=== PATIENT | female | born 1935 | race Caucasian/White ===

== ENCOUNTER 2020-12-27 19:20 | Emergency (ER) | payer MEDICARE, OTHER ==
[~2020-12-27] VITALS: Ht 160 cm; Wt 75.0 kg
[~2020-12-27 19:20] MED LIST: ALLP100T; AMLO5TAB2; ATEN1TAB3; ATRV10T; CAND1TAB4; CPR500T PO; FEXO180T; FLC150T PO; MNTL10T; PREMARIN
[2020-12-27] MEDS ORDERED: ROCURONIUM 10 MG/ML 5 ML SYRINGE IV ONE (19:25)
[2020-12-27] MEDS ORDERED: SUCCINYLCHOLINE INJ 100 MG/5 ML SYR/VIAL INJ ONE (19:25)
[2020-12-27] MEDS ORDERED: MIDAZOLAM 5 MG/5 ML (VERSED) VIAL IJ ONE (19:25)
[2020-12-27] MEDS ORDERED: LORazepam INJ 2 MG/ML (ATIVAN) VIAL ONE (19:31)
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
--- NOTE | 2020-12-27 19:58 | Diagnostic Imaging Report ---
PROCEDURE: CT head wo r/o stroke. TECHNIQUE: Multiple contiguous axial images were obtained through the brain without the use of intravenous contrast. Auto Exposure Controls were utilized during the CT exam to meet ALARA standards for radiation dose reduction. INDICATION: Neurodeficit trauma COMPARISON: None. FINDINGS: The ventricles are normal in size, shape and position. There is no midline shift or mass effect. There is no hemorrhage or evidence of acute ischemia. No extra-axial fluid collection or mass is seen. There was no dense vessel sign. There is no skull fracture. Paranasal sinuses and mastoids are clear. IMPRESSION: 1. Negative CT head. No acute intracranial abnormality. 2. No skull fracture. Dictated by: Dictated on workstation # [id number]
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
--- NOTE | 2020-12-27 20:05 | Diagnostic Imaging Report ---
PROCEDURE: CT thoracic and lumbar spine without contrast. TECHNIQUE: Multiple contiguous axial images were obtained through the thoracic and lumbar spine without the use of intravenous contrast. Sagittal and coronal reformations were then performed. All CT scans use one or more of the following dose optimizing techniques: automated exposure control, MA and/or KvP adjustment based on a patient size and exam type, or iterative reconstruction. INDICATION: Low back pain COMPARISON: None. FINDINGS: Please note, the examination is limited due to motion. No obvious traumatic malalignment or fracture is identified. There is advanced atherosclerotic disease of the abdominal aorta. No obvious aneurysm is identified. There are advanced degenerative changes throughout the thoracolumbar spine. Diffuse osteopenia is seen. The visualized SI joints are symmetric. IMPRESSION: No traumatic malalignment or fracture. Dictated by: Dictated on workstation # [id number]
--- NOTE | 2020-12-27 20:18 | Diagnostic Imaging Report ---
PROCEDURE: CT chest, abdomen, and pelvis with contrast. TECHNIQUE: Multiple contiguous axial images were obtained through the chest, abdomen, and pelvis after the administration of intravenous contrast. Auto Exposure Controls were utilized during the CT exam to meet ALARA standards for radiation dose reduction. INDICATION: Trauma COMPARISON: None. CT CHEST: There has been prior ascending aortic repair. There is no vascular injury. The heart is enlarged with coronary artery disease. There is no pneumothorax, effusion or pulmonary contusion. The visualized chest, ribs and sternum are unremarkable. IMPRESSION: No acute trauma identified. CT ABDOMEN PELVIS: Solid organs, vascular structures and bowel are unremarkable. There is a small hiatal hernia. There is no free air or free fluid. Advanced atherosclerotic disease is seen in the abdominal aorta and visceral branch vessels. No solid organ or bowel ischemia is seen. The lumbar spine, pelvis and hips are grossly intact. There is no hematoma. IMPRESSION: 1. No acute trauma within the abdomen or pelvis. 2. Small hiatal hernia. 3. Atherosclerosis of the abdominal aorta and visceral branch vessels. No solid organ or bowel ischemia identified. 4. Not mentioned above, diverticulosis of the sigmoid colon without diverticulitis. Dictated by: Dictated on workstation # [id number]
[2020-12-27 20:30] LABS: BASOPHILS % (AUTO) 1 % (0-10); EOSINOPHILS # (AUTO) 0.2 10^3/uL (0.0-0.3); EOSINOPHILS % (AUTO) 2 % (0-10); HEMATOCRIT 33 % (35-52); HEMOGLOBIN 10.9 g/dL (11.5-16.0); LYMPHOCYTES # (AUTO) 1.4 10^3/uL (1.0-4.0); LYMPHOCYTES % (AUTO) 16 % (12-44); MEAN CORPUSCULAR HEMOGLOBIN 29 pg (25-34); MEAN CORPUSCULAR HGB CONC 33 g/dL (32-36); MEAN CORPUSCULAR VOLUME 89 fL (80-99); MEAN PLATELET VOLUME 9.8 fL (9.0-12.2); MONOCYTES # (AUTO) 0.7 10^3/uL (0.0-1.0); MONOCYTES % (AUTO) 8 % (0-12); NEUTROPHILS # (AUTO) 6.4 10^3/uL (1.8-7.8); NEUTROPHILS % (AUTO) 73 % (42-75); PLATELET COUNT 235 10^3/uL (130-400); WHITE BLOOD COUNT 8.8 10^3/uL (4.3-11.0)
[2020-12-27] MEDS ORDERED: KETAMINE HCL 100 MG/ML 5 ML VIAL IV ONE (20:30)
[2020-12-27] MEDS ORDERED: NS IV 1000 ML 1,000 ML IV SCH (20:30)
[2020-12-27 20:39] LABS: FIBRIN DEGRADATION PRODUCTS 1.22 UG/ML (0.00-0.49); PROTHROMBIN TIME PATIENT 13.3 SEC (12.2-14.7)
[2020-12-27 20:43] LABS: CHLORIDE 101 MMOL/L (98-107); POTASSIUM 4.4 MMOL/L (3.6-5.0); SODIUM 138 MMOL/L (135-145)
[2020-12-27 20:44] LABS: ALBUMIN 3.3 GM/DL (3.2-4.5)
[2020-12-27 20:45] LABS: AMYLASE 36 U/L (25-125); CALCIUM 8.4 MG/DL (8.5-10.1)
[2020-12-27 20:46] LABS: GLUCOSE 125 MG/DL (70-105); TOTAL PROTEIN 5.5 GM/DL (6.4-8.2)
[2020-12-27 20:47] LABS: CARBON DIOXIDE 27 MMOL/L (21-32)
[2020-12-27 20:48] LABS: BILIRUBIN,TOTAL 0.4 MG/DL (0.1-1.0)
[2020-12-27 20:50] LABS: ALKALINE PHOSPHATASE 70 U/L (40-136); CREATININE SERUM 1.55 MG/DL (0.60-1.30); GFR ESTIMATED 32
[2020-12-27 20:51] LABS: ACETAMINOPHEN < 10 UG/ML (10-30); BUN/CREATININE RATIO 25
[2020-12-27 20:53] LABS: ALANINE AMINOTRANSFERASE 16 U/L (0-55); MAGNESIUM 1.6 MG/DL (1.6-2.4)
[2020-12-27 20:54] LABS: CREATINE KINASE 40 U/L (29-168); LIPASE 22 U/L (8-78)
[2020-12-27 20:57] LABS: BILIRUBIN,URINE NEGATIVE (NEGATIVE); CLARITY,URINE CLEAR; COLOR,URINE YELLOW; GLUCOSE, URINE (UA) NEGATIVE (NEGATIVE); KETONES,URINE NEGATIVE (NEGATIVE); LEUKOCYTE ESTERASE ,URINE NEGATIVE (NEGATIVE); NITRITE,URINE NEGATIVE (NEGATIVE); PH,URINE 5.5 (5-9); PROTEIN,URINE NEGATIVE (NEGATIVE)
[2020-12-27 21:01] LABS: CREATINE KINASE MB 1.2 NG/ML (<6.6)
[2020-12-27 21:12] LABS: ERYTHROCYTE SEDIMENTATION RATE 7 MM/HR (0-30)
[2020-12-27] MEDS ORDERED: PROPOFOL DRIP (ICU) 100 ML IV ONE (21:14)
[2020-12-27] MEDS ORDERED: PROPOFOL DRIP (ICU) 100 ML IV SCH (21:15)
[2020-12-27 21:18] LABS: AMORPHOUS SEDIMENT,UR FEW AMOR URATES /LPF; BACTERIA,URINE NEGATIVE /HPF; RBC,URINE RARE /HPF
[2020-12-27 21:26] LABS: AMPHETAMINE SCREEN, URINE NEGATIVE (NEGATIVE); BARBITURATE SCREEN URINE NEGATIVE (NEGATIVE); BENZODIAZEPINES SCREEN URINE NEGATIVE (NEGATIVE); CANNABINOID SCREEN, URINE NEGATIVE (NEGATIVE); COCAINE SCREEN URINE NEGATIVE (NEGATIVE); METHADONE STAT NEGATIVE (NEGATIVE); METHAMPHETAMINE SCREEN URINE S NEGATIVE (NEGATIVE); OPIATE SCREEN URINE NEGATIVE (NEGATIVE); OXYCODONE STAT NEGATIVE (NEGATIVE); PROPOXYPHENE STAT NEGATIVE (NEGATIVE); TRICYCLIC ANTIDEPRESSANTS SCRE NEGATIVE (NEGATIVE)
--- NOTE | 2020-12-27 21:35 | Diagnostic Imaging Report ---
INDICATION: Trauma COMPARISON: None. FINDINGS: Single view of the pelvis demonstrates no fracture or dislocation. Articular surfaces are age-appropriate. No osseous lesion. IMPRESSION: No fracture identified. Dictated by: Dictated on workstation # [id number]
--- NOTE | 2020-12-27 21:36 | Diagnostic Imaging Report ---
INDICATION: Intubated COMPARISON: None. FINDINGS: Single view of the chest demonstrates ET tube in the distal trachea. There is an NG tube in the stomach. Heart is prominent with central vascular congestion. There is no pneumothorax. Osseous structures stable. IMPRESSION: 1. Well-positioned NG and ET tubes. 2. Cardiac enlargement with central vascular congestion. Dictated by: Dictated on workstation # [id number]
[2020-12-27 22:02] LABS: TSH (THYROID ANALYZER) 1.38 UIU/ML (0.35-4.94)
[2020-12-27 23:23] VITALS: BP 178/75
== END 2020-12-27 22:15 | disposition short-term general hospital (02) ==
LOC: EDUNIT# 19:21 → ER 19:24
DX: G51.0 Bell's palsy (principal); Z20.822 Contact with and (suspected) exposure to COVID-19
CPT/HCPCS: 31500; 51702; 70450; 71045; 71260; 72125; 72128; 72131; 72170; 74177; 80053; 80306; 81000; 82150; 82550; 82553; 83615; 83690; 83735; 83874; 83880; 84145; 84443; 84484; 85025; 85379; 85610; 85652; 85730; 86141; 86850; 86900; 86901; 87636; 93005; 93041; 94002; 94799; 96361; 96374; 96375; 99291; 99292; G0390; G0480 ×2; 36415; 80320; 80329

== ENCOUNTER 2021-01-05 08:55 | Inpatient (IN) | payer MEDICARE, OTHER ==
[~2021-01-05] VITALS: Ht 157.5 cm; Wt 64.9 kg
[2021-01-05] MEDS ORDERED: ALLO100T PO (10:20)
[2021-01-05] MEDS ORDERED: FLUO5DRO OU (10:20)
[2021-01-05] MEDS ORDERED: AMLO-250 PO (10:20)
[2021-01-05] MEDS ORDERED: CETI10TA17 PO (10:20)
[2021-01-05] MEDS ORDERED: ASPI-1238 PO (10:20)
[2021-01-05] MEDS ORDERED: CAND1TAB16 PO (10:20)
[2021-01-05] MEDS ORDERED: MELA5TAB14 PO (10:20)
[2021-01-05] MEDS ORDERED: ATOR40TA70 PO (10:20)
[2021-01-05] MEDS ORDERED: MONT10TA32 PO (10:20)
[2021-01-05] MEDS ORDERED: TRAM1TAB7 PO (10:20)
[2021-01-05] MEDS ORDERED: CLOP75TA28 PO (10:20)
[2021-01-05] MEDS ORDERED: ATEN50TA PO (10:26)
[2021-01-05] MEDS ORDERED: FLEET ENEMA ADULT 1 EA BTL PR PRN (13:00)
[2021-01-05] MEDS ORDERED: ALPRAZolam 0.25 MG (XANAX) TAB PO PRN (13:00)
[2021-01-05] MEDS ORDERED: ONDANSETRON 4 MG (ZOFRAN) ORAL DISSOLVE TAB PO PRN (13:00)
[2021-01-05] MEDS ORDERED: MELATONIN 3 MG TABLET PO PRN (13:00)
[2021-01-05] MEDS ORDERED: BISACODYL 10 MG SUPP (DULCOLAX) PR PRN (13:00)
[2021-01-05] MEDS ORDERED: CALCIUM CARBONATE 500 MG (TUMS) TAB.CHEW PO PRN (13:00)
[2021-01-05] MEDS ORDERED: NALOXONE 0.4 MG/ML 1 ML (NARCAN) VIAL IV PRN (13:00)
[2021-01-05] MEDS ORDERED: diphenhydrAMINE 25 MG TAB (BENADRYL) PO PRN (13:00)
[2021-01-05] MEDS ORDERED: guaiFENesin/CODEINE (ROBITUSSIN AC) 10ML UDC PO PRN (13:00)
[2021-01-05] MEDS ORDERED: LOPERAMIDE 2 MG (IMODIUM) TABLET PO PRN (13:00)
[2021-01-05] MEDS ORDERED: LACTULOSE SYRUP 10GM/15ML (ENULOSE) 30ML UDC PO PRN (13:00)
[2021-01-05] MEDS ORDERED: DOCUSATE SODIUM 100 MG (COLACE) CAP PO PRN (13:00)
[2021-01-05] MEDS ORDERED: MELATONIN 10 MG TABLET PO PRN (13:45)
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
--- NOTE | 2021-01-05 14:46 | ST Cognitive Linguistic Eval ---
Speech Evaluation-General Medical Diagnosis CVA Onset Date: Jan 05, 2021 Therapy Diagnosis Therapy Diagnosis: Cognitive-communication Referral Referring Physician: Dr. Lucas Medical History Reviewed History: Yes Social History Current Living Status: Alone Speech PLF-Current Status Prior Level of Function Patient lives home alone, however she has many family members availabe for support. Subjective Patient was pleasant and cooperative with the cognitive assessment. Language Eval: Auditory Comprehends Simple Yes/No Ques: Functional Indent/Objects Multiple Galvez: Functional Ident/Pics in Multiple Galvez: Functional Follows 1-Step Commands: Functional Follows Complex Directions: Functional Follows General Conversations: Functional Language Eval: Verbal Language Completes Spontaneous Greeting: Functional Produces Auto, Serial Info: Functional Imitates Simple Words/Phrases: Functional Word Finding: Mild Requests Basic Needs: Functional States Basic Personal Info: Functional Expresses Complex Ideas: Mild Objective Cognitive Domain Attention: Mild Memory: Mild Problem Solving: Mild Executive Functions: Mild Visuospatial Skills: Mild Composite Severity Rating: Mild Clock Drawing Severity Rating: Mild Objective Formal/Standardized Tests [facility] Status ([facility]) Results 24/, Mild Neurocognitive Disorder Oral Motor/Speech Production Within Normal Limits Impression Patient is a pleasant 85 y/o female who was admitted to the ARU s/p CVA. The patient was given the UMS at bedside with a score of 24/30 obtained. Patient's score is within the [place] range of function. The patient exhibits deficits in cognitive function which indicate a need for further ST services. Focus on therapy will be safety awareness and improved memory. Speech Patient Assess Expression of Ideas/Wants: Exhibits (3) Understanding Verbal Content: Usually Understands (3) Brief Interview-Mental Status: Yes Repetition of Three Words: Three (3) Temporal Orientation: Year: Correct (3) Temporal Orientation: Month: Accurate within 5 days(2) Temporal Orientation: Day: Correct (1) Recall : Wear to say "Sock": Yes,after cueing (1) Recall : Color: Yes, after cueing (1) Recall : Bed: Yes, no cue required (2) Memory/Recall Ability: Current season, That he or she is in a hsp/hsp unit Speech Short Term Goals Short Term Goals Short Term Goals 1) The patient will complete safety awareness tasks related to her daily needs at 80% or greater with minimal cues. 2) The patient will complete memory tasks related to her daily needs at 80% or greater with minimal cues. 3) The patient will complete problem solving tasks related to her daily needs at 80% or greater with minimal cues. Speech Proof Technician Goals Proof Technician Goals Patient will improve cognitive communication abilities in order to return home safely with decreased assistance. Speech-Plan Patient/Family Goals Patient/Family Goals: Patient plans on returning to her home where she lives alone. Treatment Plan Speech Therapy Treatment Plan: Continue Plan of Care Treatment Duration: Jan 19, 2021 Frequency: 4 times per week (Patient will receive skilled ST 4-5x per week) Estimated Hrs Per Day: .5 hour per day Rehab Potential: Fair Barriers to Learning: Patient's recent CVA, age Pt/Family Agrees to Plan: Yes Safety Risks/Education Teaching Recipient: Patient Teaching Methods: Demonstration, Discussion Response to Teaching: Verbalize Understanding, Return Demonstration Education Topics Provided: Safety within her room, communication wants/needs Time Speech Therapy Time In: 14:15 Speech Therapy Time Out: 14:45 Total Billed Time: 30 Billed Treatment Time 1, MATTI TORRES [address] ST Jan 05, 2021 14:46
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
[2021-01-05] MEDS ORDERED: DICLOFENAC 1% GEL 100 GM (VOLTAREN) TUBE TOP SCH (17:00)
[2021-01-05] MEDS: ACETAMINOPHEN 325 MG TABLET PO PRN (17:32)
[2021-01-05] MEDS: DICLOFENAC 1% GEL 100 GM (VOLTAREN) TUBE TOP PRN (17:35)
[2021-01-05] MEDS ORDERED: ACETAMINOPHEN 500 MG TAB (TYLENOL) PO SCH (18:00)
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
[2021-01-05 20:02] VITALS: BP 136/65
[2021-01-05] MEDS: polyethylene glycoL POWDER 17 GM (MIRALAX) PACK PO SCH (20:45)
[2021-01-05] MEDS: MONTELUKAST 10 MG (SINGULAIR) TAB PO SCH (20:46)
[2021-01-05] MEDS: SENNA W/DOCUSATE (SENOKOT S) TABLET PO SCH (20:46)
[2021-01-05] MEDS: ATENOLOL 50 MG (TENORMIN) TAB PO SCH (20:46)
[2021-01-05] MEDS: amLODIPine 5 MG (NORVASC) TAB PO SCH (20:47)
[2021-01-06 05:46] LABS: BASOPHILS % (AUTO) 1 % (0-10); EOSINOPHILS # (AUTO) 0.3 10^3/uL (0.0-0.3); EOSINOPHILS % (AUTO) 3 % (0-10); HEMATOCRIT 34 % (35-52); HEMOGLOBIN 11.4 g/dL (11.5-16.0); LYMPHOCYTES # (AUTO) 1.9 10^3/uL (1.0-4.0); LYMPHOCYTES % (AUTO) 22 % (12-44); MEAN CORPUSCULAR HEMOGLOBIN 28 pg (25-34); MEAN CORPUSCULAR HGB CONC 33 g/dL (32-36); MEAN CORPUSCULAR VOLUME 86 fL (80-99); MEAN PLATELET VOLUME 10.3 fL (9.0-12.2); MONOCYTES # (AUTO) 1.1 10^3/uL (0.0-1.0); MONOCYTES % (AUTO) 12 % (0-12); NEUTROPHILS # (AUTO) 5.5 10^3/uL (1.8-7.8); NEUTROPHILS % (AUTO) 62 % (42-75); PLATELET COUNT 286 10^3/uL (130-400); WHITE BLOOD COUNT 8.8 10^3/uL (4.3-11.0)
[2021-01-06 05:58] LABS: ALBUMIN 3.6 GM/DL (3.2-4.5)
--- NOTE | 2021-01-06 05:58 | PM&R Progress Note ---
Subjective HPI/CC On Admission Date Seen by Provider: Jan 06, 2021 Time Seen by Provider: 06:00 Subjective/Events-last exam 01/06/2021: Patient doing very well No major pain is reported Check meds and labs Patient slept on and off last night Had some confusion last night Converses a lot Review of Systems General: Fatigue, Malaise Neurological: Weakness, Incoordination, Confusion Objective Exam Vital Signs Vital Signs Date Time Temp Pulse Resp B/P (MAP) Pulse Ox O2 Delivery O2 Flow Rate FiO2 01/06/21 09:00 Room Air 01/06/21 08:52 36.6 68 20 106/68 (81) 98 Capillary Refill : General Appearance: No Apparent Distress, Anxious, Chronically ill HEENT: PERRL/EOMI, Normal ENT Inspection, Pharynx Normal, Other (left subconjunctival hemorrhage) Neck: Full Range of Motion, Normal Inspection, Non Tender, Supple Respiratory: Lungs Clear, No Accessory Muscle Use, No Respiratory Distress, Decreased Breath Sounds Cardiovascular: Regular Rate, Rhythm, Systolic Murmur, Gallop/S4 Gastrointestinal: Normal Bowel Sounds, No Organomegaly, No Pulsatile Mass, Non Tender, Soft Rectal: Deferred Back: No CVA Tenderness Extremity: Non Tender, No Calf Tenderness, Pedal Edema (1) Neurologic/Psychiatric: Alert, Oriented x3, Depressed Affect, Facial Droop (right), Other (slurred speech--mild) Skin: Warm/Dry, Ecchymosis (forearms) Results/Procedures Lab Laboratory Tests 01/06/21 05:34 Patient resulted labs reviewed. FIM Transfers Therapy Code Descriptions/Definitions Functional [place] Measure: 0=Not Assessed/NA 4=Minimal Assistance 1=Total Assistance 5=Supervision or Setup 2=Maximal Assistance 6=Modified [place] 3=Moderate Assistance 7=Complete IndependenceSCALE: Activities may be completed with or without assistive devices. 4-Heyletwutq-thmbgnb completes the activity by him/herself with no assistance from a helper. 5-Set-up or Clean-up Assistance-helper sets up or cleans up; patient completes activity. [place] assists only prior to or following the activity. 4-Supervision or Touching Assistance-helper provides verbal cues and/or touching/steadying and/or contact guard assistance as patient completes activity. Assistance may be provided throughout the activity or intermittently. 3-Partial/Moderate Assistance-helper does LESS THAN HALF the effort. [place] lifts, holds or supports trunk or limbs, but provides less than half the effort. 2-Substantial/Maximal Assistance-helper does MORE THAN HALF the effort. [place] lifts or holds trunk or limbs and provides more than half the effort. 4-Yotncbieu-uwjdcy does ALL the effort. Patient does none of the effort to complete the activity. Or, the assistance of 2 or more helpers is required for the patient to complete the activity. If activity was not attempted, code reason: 7-Patient Refused. 9-Not Applicable-not attempted and the patient did not perform the activity before the current illness, exacerbation or injury. 10-Not Attempted due to Environmental Limitations-(lack of equipment, weather restraints, etc.). 88-Not Attempted due to Medical Conditions or Safety Concerns. Roll Left to Right (QC): 6 Sit to Lying (QC): 6 Sit to Stand (QC): 3 Chair/Ysi-rk-Tsjhb Xfer(QC): 4 Car Transfer (QC): 3 Gait Training Does the Patient Walk?: Yes Walk 10 feet (QC): 4 Walk 50 ft with 2 Turns(QC): 4 Walk 150 ft (QC): 4 Walking 10ft/uneven surface-QC: 3 Gait Assistive Device: FWW Wheelchair Training Does the Pt Use a Wheelchair?: Yes Distance: 200' Wheel 50 ft with 2 turns (QC): 2 Wheel 150 ft (QC): 2 Stair Training #of Steps: 1 1 Step (curb) (QC): 3 4 Steps (QC): 88 12 Steps (QC): 88 Balance Picking up an Object (QC): 88 ADL-Treatment Eating (QC): 5 (set up assistance per clincial judgement) Oral Hygiene (QC): 4 (CGA standing at sink. 1 verbal cue to locate cup at sink) Shower/Bathe Self (QC): 4 (CGA in stand, min verbal cues for sequencing.) Upper Body Dressing (QC): 3 (Mod A with donning breast puller shirt, max verbal cues for orientation of shirt.) Lower Body Dressing (QC): 3 (Mod A with donning LE clothing, max verbal cues for orientation) On/Off Footwear (QC): 3 (Pt able to doff shoes, donned shoes on wrong feet requiring cue. Min A to don ) Toileting Hygiene (QC): 4 (CGA) Assessment/Plan Assessment and Plan Assess & Plan/Chief Complaint Assessment: CVA from right-sided MCA stroke with left-sided weakness Hypertension COPD Recent former smoker Hyperlipidemia Confusion/cognitive deficit Plan: Rehab protocol Monitor blood pressure Fall risk Assistive devices to increase independence 01/06/2021: Supportive care Confusion noted fall risk (1) CVA (cerebral vascular accident) MIGEL SANCHEZ DO Jan 06, 2021 05:58
--- NOTE | 2021-01-06 05:58 | Individualized Plan of Care ---
Individualized Plan of Care Rehab Nursing IPOC Order Admission Date Jan 05, 2021 at 12:50 Current Orders Orders Admission Arrival Bed Request (01/05/21 12:55) Admission Order(Inpt,Obs,Sdc) (01/05/21 12:52) Vital Signs: Per Unit Policy ( 08,16,00 (01/05/21 12:52) Aman Henley (01/05/21 12:52) Sequential Compression Device .admit (01/05/21 12:52) Security Strategist-Inpt Rehab Con (01/05/21 12:52) Rehab Nursing Orders-Ipoc (01/05/21 12:52) Physical Therapy Rehab Orders (01/05/21 12:52) Occupational Therapy Rehab Ord (01/05/21 12:52) Speech Therapy Rehab Orders (01/05/21 12:52) Cbc With Automated Diff (01/06/21 06:00) Comprehensive Metabolic Panel (01/06/21 06:00) Precautions (Aru) (01/05/21 12:52) Rehab-Intensity Of Therapy (01/05/21 12:52) Initiate Admission Nursing Pro .admission (01/05/21 12:52) Alprazolam Tablet (Xanax Tablet) (01/05/21 13:00) Calcium Carbonate Chew Tablet (Antacid C (01/05/21 13:00) Diphenhydramine Tablet (Benadryl Tablet) (01/05/21 13:00) Docusate Sodium Capsule (Colace Capsule) (01/05/21 13:00) Bisacodyl Suppository (Dulcolax Supposit (01/05/21 13:00) Lactulose Oral Solution (Enulose Oral So (01/05/21 13:00) Na Phos/Na Biphos Enema (Fleet Enema Antonio (01/05/21 13:00) Guaifenesin/Codeine Syrup (Robitussin Ac (01/05/21 13:00) Loperamide Tablet (Imodium Tablet) (01/05/21 13:00) Polyethylene Glycol Powder Pkt (Miralax (01/05/21 21:00) Ondansetron Oral Dissolve Tab (Zofran (01/05/21 13:00) Senna S Tablet (Senokot S Tablet) (01/05/21 21:00) Therapeutic Activity Goals: (01/05/21 12:52) Acetaminophen Tablet (Tylenol Tablet) (01/05/21 18:00) Nursing Communication (Order) (01/05/21 ) Naloxone Injection (Narcan Injection) (01/05/21 13:00) Initiate Admission Nursing Pro .admission (01/05/21 12:52) Allopurinol Tablet (Zyloprim Tablet) (01/06/21 09:00) Amlodipine Tablet (Norvasc Tablet) (01/05/21 21:00) Aspirin Enteric Coated Tablet (Ecotrin T (01/06/21 09:00) Atenolol Tablet (Tenormin Tablet) (01/05/21 21:00) Atorvastatin Tablet (Lipitor) (01/05/21 21:00) Clopidogrel Tablet (Plavix Tablet) (01/06/21 09:00) Montelukast Tablet (Singulair Tablet) (01/05/21 21:00) Valsartan Tablet (Diovan Tablet) (01/06/21 09:00) Loratadine Tablet (Claritin Tablet) (01/06/21 09:00) Fluorometholone 0.1% Ophth Crystal (Fml 0.1% (01/06/21 09:00) Melatonin Tablet (Melatonin Tablet) (01/05/21 13:45) Tramadol Tablet (Ultram Tablet) (01/05/21 14:00) Hydrochlorothiazide Cap/Tablet (Hctz Cap (01/06/21 09:00) Acetaminophen Tablet/Caplet (Tylenol T (01/05/21 14:00) Patient Visit (01/05/21 ) Speech Sound Lang Comp (01/05/21 ) Treat. Speech/Lang/Voice (01/05/21 ) Patient Visit (01/05/21 ) Pt Eval Moderate Complexity (01/05/21 ) Functional Activities, Ea 15 (01/05/21 ) Diclofenac 1% Gel (Voltaren 1% Gel) (01/05/21 17:00) Diclofenac 1% Gel (Voltaren 1% Gel) (01/05/21 15:30) Tramadol Tablet (Ultram Tablet) (01/05/21 17:45) General/Regular (01/05/21 Dinner) Patient Visit (01/06/21 ) Gait Training, Ea 15 Min (01/06/21 ) Rehab Nursing Orders: Ongoing Assess. of Cognitive Status, Ongoing Assess. of Function Status, Bladder Management, Bladder Scan, Bladder Training, Bowel Management, Bowel Training, Disease Management & Educaiton, DVT Prophylaxis, Fall Prevention, Fluid/Electrolyte/Nutrition Mgmt, Infection Prevention, Medication Management & Education, Management of Risks & Complications, Management of Skin Intergrity, Nutrition Management, Pain Management, Patient/Family Support, Safety Management Intensity of Therapy to be met Patient to be seen: Min.3h per day/5 of 7d PT IPOC Problem List: Activity Tolerance, Functional Strength, Safety, Balance, Gait, Transfer, Bed Mobility, ROM Treatment Plan: Continue Plan of Care Bed Mobility, Education, Functional Activity Anish, Functional Strength, Group Therapy, Gait, Safety, Therapeutic Exercise, Transfers Treatment Duration: Jan 26, 2021 Frequency: At least 5 of 7 days/Wk (IRF) Estimated Hrs Per Day: 1.5 hours per day OT IPOC Problems: Decreased Activ Tolerance, Decreased Safety Aware, Decreased UE Strength, Impaired Cognition, Impaired Funct Balance, Impaired I ADL's, Impaired Self-Care Skills OT Treatment, Training and Edu: Yes Plan of Care: ADL Retraining, Functional Mobility, Group Exercise/Act as Ind, UE Funct Exercise/Act Treatment Duration: Jan 26, 2021 Frequency: At least 5 of 7 days/Wk (IRF) Estimated Hrs Per Day: 1.[address] IPOC Speech Therapy Treatment Plan: Continue Plan of Care Treatment Duration: Jan 19, 2021 Frequency: 4 times per week (Patient will receive skilled ST 4-5x per week) Estimated Hrs Per Day: .5 hour per day Security Strategist/Case Mgmt Security Strategist/Case Managemen: Discharge Planning Dietitian/Welfare Eligibility Interviewer Dietitian/Welfare Eligibility Interviewer to monitor nutritional status and make changes and/or recommendations as needed and work with speech pathology on dietary upgrades as the occur. Physician IPOC Medical Issues being managed closely and that require the 24 hour availability of a physician: Recent CVA with left-sided weakness with labile hypertension and cognitive deficit at fall risk will require close monitoring for any decompensation while she is on the inpatient rehab unit Medical Issues: Bowel/Bladder Function, DVT Prophylaxis, Falls Precautions, Fluid/Electrolyte/Nutrition Balance, Infection Protection, Pain Management, Swallowing Precautions Brief Synthesis of Preadmission Screen, Post-Admission Evaluation, and Therapy Evaluations: PT and OT will focus on regaining left-sided strength with the use of assistive devices and increasing ADL independence in order to return back to independent living and speech therapy will focus on cognitive deficits Medical Prognosis: Fair Anticipated Length of Stay: 14 days MIGEL SANCHEZ DO Jan 06, 2021 05:58
[2021-01-06 05:59] LABS: POTASSIUM 3.3 MMOL/L (3.6-5.0)
[2021-01-06 06:00] LABS: CALCIUM 10.6 MG/DL (8.5-10.1)
[2021-01-06 06:01] LABS: TOTAL PROTEIN 6.4 GM/DL (6.4-8.2)
[2021-01-06 06:03] LABS: BILIRUBIN,TOTAL 0.5 MG/DL (0.1-1.0)
[2021-01-06 06:04] LABS: CREATININE SERUM 2.1 MG/DL (0.60-1.30)
[2021-01-06] MEDS: CLOPIDOGREL 75 MG (PLAVIX) TABLET PO SCH (08:50)
[2021-01-06] MEDS: ALLOPURINOL 100 MG (ZYLOPRIM) TAB PO SCH (08:50)
[2021-01-06] MEDS: ASPIRIN E.C. 81 MG (ECOTRIN) TAB PO SCH (08:50)
[2021-01-06] MEDS: LORATADINE (CLARITIN) 10 MG TAB PO SCH (08:50)
[2021-01-06] MEDS: VALSARTAN 160 MG (DIOVAN) TABLET PO SCH (08:50)
[2021-01-06 08:52] VITALS: BP 106/68
[2021-01-06] MEDS: FLUOROMETHOLONE 0.1% OU SCH (08:52)
[2021-01-06] MEDS: polyethylene glycoL POWDER 17 GM (MIRALAX) PACK PO SCH ×2 (09:00→21:00)
[2021-01-06] MEDS: amLODIPine 5 MG (NORVASC) TAB PO SCH ×2 (09:00→20:51)
[2021-01-06] MEDS: SENNA W/DOCUSATE (SENOKOT S) TABLET PO SCH ×2 (09:00→21:00)
[2021-01-06] MEDS: ATENOLOL 50 MG (TENORMIN) TAB PO SCH ×2 (09:00→20:51)
--- NOTE | 2021-01-06 10:09 | Physical Therapy Daily Note ---
PT Daily Note-Current Subjective Pt. up in bedside chair, agrees to therapy but states "I really want my pancake ordered, I'm so hungry." Transfers SCALE: Activities may be completed with or without assistive devices. 7-Ytfozukwcw-oqrcbdq completes the activity by him/herself with no assistance from a helper. 5-Set-up or Clean-up Assistance-helper sets up or cleans up; patient completes activity. [place] assists only prior to or following the activity. 4-Supervision or Touching Assistance-helper provides verbal cues and/or touching/steadying and/or contact guard assistance as patient completes activity. Assistance may be provided throughout the activity or intermittently. 3-Partial/Moderate Assistance-helper does LESS THAN HALF the effort. [place] lifts, holds or supports trunk or limbs, but provides less than half the effort. 2-Substantial/Maximal Assistance-helper does MORE THAN HALF the effort. [place] lifts or holds trunk or limbs and provides more than half the effort. 1-Oexftayhq-tncfhz does ALL the effort. Patient does none of the effort to complete the activity. Or, the assistance of 2 or more helpers is required for the patient to complete the activity. If activity was not attempted, code reason: 7-Patient Refused. 9-Not Applicable-not attempted and the patient did not perform the activity before the current illness, exacerbation or injury. 10-Not Attempted due to Environmental Limitations-(lack of equipment, weather restraints, etc.). 88-Not Attempted due to Medical Conditions or Safety Concerns. Sit to Stand (QC): 4 Gait Training Does the Patient Walk?: Yes Distance: 300 ft Walk 150 ft (QC): 4 Gait Persons Needed: 1 Gait Assistive Device: FWW Treatments gait training Assessment Current Status: Good Progress Pt. is slow but overall steady with gait. She has a very narrow THELMA and needs occasional cues for walker safety (keep L hand in proper place, walker management while turning, staying close to walker). Pt. returned to room post session with call light, breakfast arrived and set up and all needs met, chair alarm set. PT Short Term Goals Short Term Goals Time Frame: Jan 12, 2021 Roll Left & Right: 6 Sit to lyin Lying to sitting on side of be: 6 Sit to stand: 4 Chair/ktt-bd-wsvvr transfer: 4 Walk 10 feet: 4 Walk 50 feet with two turns: 4 Walk 150 feet: 4 PT Skilled Nursing Goals Spooler Rubber Strand Goals PT Spooler Rub[employer] Strand Goals Time Frame: Jan 26, 2021 Roll Left & Right (QC): 6 Sit to Lying (QC): 6 Lying-Sitting on Side/Bed(QC): 6 Sit to Stand (QC): 4 (SBA) Chair/Arg-bq-Jhrox Xfer(QC): 4 (SBA) Toilet Transfer (QC): 4 (SBA) Car Transfer (QC): 4 (SBA) Does the Patient Walk: Yes Walk 10 feet (QC): 4 (SBA) Walk 50ft with 2 Turns (QC): 4 (SBA) Walk 150 ft (QC): 4 (SBA) Walking 10ft on Uneven Surface: 4 (SBA) 1 Step (curb) (QC): 4 (SBA) 4 Steps (QC): 4 (SBA) 12 Steps (QC): 88 Picking up an Object (QC): 4 Wheel 50 feet with 2 turns (QC: 9 Wheel 150 feet: 9 PT Plan Treatment/Plan Treatment Plan: Continue Plan of Care Treatment Plan: Bed Mobility, Education, Functional Activity Anish, Functional Strength, Group Therapy, Gait, Safety, Therapeutic Exercise, Transfers Treatment Duration: Jan 26, 2021 Frequency: At least 5 of 7 days/Wk (IRF) Estimated Hrs Per Day: 1.5 hours per day Patient and/or Family Agrees t: Yes Time/GCodes Time In: 0735 Time Out: 0800 Total Billed Treatment Time: 25 Total Billed Treatment 1, GT 25' NILO LAURA PT Jan 06, 2021 10:09
[2021-01-06] MEDS: ACETAMINOPHEN 325 MG TABLET PO PRN (17:32)
[2021-01-06] MEDS: DICLOFENAC 1% GEL 100 GM (VOLTAREN) TUBE TOP PRN (17:33)
[2021-01-06 20:00] VITALS: BP 127/68
[2021-01-06] MEDS: MONTELUKAST 10 MG (SINGULAIR) TAB PO SCH (20:51)
--- NOTE | 2021-01-07 06:08 | PM&R Progress Note ---
Subjective HPI/CC On Admission Date Seen by Provider: Jan 07, 2021 Time Seen by Provider: 06:10 Subjective/Events-last exam 01/07/2021: Confusion is improved Slept pretty well last night No falls but increased risk Bed and chair alarms in place No pain is reported 01/06/2021: Patient doing very well No major pain is reported Check meds and labs Patient slept on and off last night Had some confusion last night Converses a lot Review of Systems General: Fatigue, Malaise Neurological: Weakness Objective Exam Vital Signs Vital Signs Date Time Temp Pulse Resp B/P (MAP) Pulse Ox O2 Delivery O2 Flow Rate FiO2 01/07/21 21:00 Room Air 01/07/21 20:00 36.6 62 14 129/61 (83) 94 Capillary Refill : General Appearance: No Apparent Distress, Anxious, Chronically ill HEENT: PERRL/EOMI, Normal ENT Inspection, Pharynx Normal, Other (left subconjunctival hemorrhage) Neck: Full Range of Motion, Normal Inspection, Non Tender, Supple Respiratory: Lungs Clear, No Accessory Muscle Use, No Respiratory Distress, Decreased Breath Sounds Cardiovascular: Regular Rate, Rhythm, Systolic Murmur, Gallop/S4 Gastrointestinal: Normal Bowel Sounds, No Organomegaly, No Pulsatile Mass, Non Tender, Soft Rectal: Deferred Back: No CVA Tenderness Extremity: Non Tender, No Calf Tenderness, Pedal Edema (1) Neurologic/Psychiatric: Alert, Oriented x3, Depressed Affect, Facial Droop (right), Other (slurred speech--mild) Skin: Warm/Dry, Ecchymosis (forearms) Results/Procedures Lab Patient resulted labs reviewed. FIM Transfers Therapy Code Descriptions/Definitions Functional [place] Measure: 0=Not Assessed/NA 4=Minimal Assistance 1=Total Assistance 5=Supervision or Setup 2=Maximal Assistance 6=Modified Real 3=Moderate Assistance 7=Complete IndependenceSCALE: Activities may be completed with or without assistive devices. 2-Cogxwrirbz-cgxjbdu completes the activity by him/herself with no assistance from a helper. 5-Set-up or Clean-up Assistance-helper sets up or cleans up; patient completes activity. [place] assists only prior to or following the activity. 4-Supervision or Touching Assistance-helper provides verbal cues and/or touching/steadying and/or contact guard assistance as patient completes activity. Assistance may be provided throughout the activity or intermittently. 3-Partial/Moderate Assistance-helper does LESS THAN HALF the effort. [place] lifts, holds or supports trunk or limbs, but provides less than half the effort. 2-Substantial/Maximal Assistance-helper does MORE THAN HALF the effort. [place] lifts or holds trunk or limbs and provides more than half the effort. 2-Rtexwjrjr-aypaat does ALL the effort. Patient does none of the effort to complete the activity. Or, the assistance of 2 or more helpers is required for the patient to complete the activity. If activity was not attempted, code reason: 7-Patient Refused. 9-Not Applicable-not attempted and the patient did not perform the activity before the current illness, exacerbation or injury. 10-Not Attempted due to Environmental Limitations-(lack of equipment, weather restraints, etc.). 88-Not Attempted due to Medical Conditions or Safety Concerns. Roll Left to Right (QC): 6 Sit to Lying (QC): 6 Sit to Stand (QC): 4 Chair/Agb-mp-Hhgjh Xfer(QC): 4 Car Transfer (QC): 3 Gait Training Does the Patient Walk?: Yes Distance: 300 ft Walk 10 feet (QC): 4 Walk 50 ft with 2 Turns(QC): 4 Walk 150 ft (QC): 4 Walking 10ft/uneven surface-QC: 3 Gait Persons Needed: 1 Gait Assistive Device: FWW Wheelchair Training Does the Pt Use a Wheelchair?: Yes Distance: 200' Wheel 50 ft with 2 turns (QC): 2 Wheel 150 ft (QC): 2 Stair Training #of Steps: 1 1 Step (curb) (QC): 3 4 Steps (QC): 88 12 Steps (QC): 88 Balance Picking up an Object (QC): 88 ADL-Treatment Eating (QC): 5 (set up assistance per clincial judgement) Oral Hygiene (QC): 4 (CGA standing at sink. 1 verbal cue to locate cup at sink) Shower/Bathe Self (QC): 4 (CGA in stand, min verbal cues for sequencing.) Upper Body Dressing (QC): 3 (Mod A with donning slab puller shirt, max verbal cues for orientation of shirt.) Lower Body Dressing (QC): 3 (Mod A with donning LE clothing, max verbal cues for orientation) On/Off Footwear (QC): 3 (Pt able to doff shoes, donned shoes on wrong feet requiring cue. 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
[2021-01-07] MEDS: ACETAMINOPHEN 325 MG TABLET PO PRN ×2 (07:07→20:52)
[2021-01-07 09:05] VITALS: BP 146/58
[2021-01-07] MEDS: ASPIRIN E.C. 81 MG (ECOTRIN) TAB PO SCH (09:07)
[2021-01-07] MEDS: VALSARTAN 160 MG (DIOVAN) TABLET PO SCH (09:07)
[2021-01-07] MEDS: LORATADINE (CLARITIN) 10 MG TAB PO SCH (09:07)
[2021-01-07] MEDS: ALLOPURINOL 100 MG (ZYLOPRIM) TAB PO SCH (09:07)
[2021-01-07] MEDS: amLODIPine 5 MG (NORVASC) TAB PO SCH ×2 (09:07→20:52)
[2021-01-07] MEDS: CLOPIDOGREL 75 MG (PLAVIX) TABLET PO SCH (09:07)
[2021-01-07] MEDS: FLUOROMETHOLONE 0.1% OU SCH (09:08)
[2021-01-07] MEDS: ATENOLOL 50 MG (TENORMIN) TAB PO SCH ×2 (09:32→20:52)
[2021-01-07] MEDS: polyethylene glycoL POWDER 17 GM (MIRALAX) PACK PO SCH ×2 (09:32→21:00)
[2021-01-07] MEDS: SENNA W/DOCUSATE (SENOKOT S) TABLET PO SCH ×2 (09:32→21:00)
[2021-01-07 20:00] VITALS: BP 129/61
[2021-01-07] MEDS: MONTELUKAST 10 MG (SINGULAIR) TAB PO SCH (20:51)
[2021-01-08 06:43] LABS: BASOPHILS % (AUTO) 0 % (0-10); EOSINOPHILS # (AUTO) 0.3 10^3/uL (0.0-0.3); EOSINOPHILS % (AUTO) 3 % (0-10); HEMATOCRIT 34 % (35-52); HEMOGLOBIN 11.4 g/dL (11.5-16.0); LYMPHOCYTES # (AUTO) 1.8 10^3/uL (1.0-4.0); LYMPHOCYTES % (AUTO) 20 % (12-44); MEAN CORPUSCULAR HEMOGLOBIN 29 pg (25-34); MEAN CORPUSCULAR HGB CONC 33 g/dL (32-36); MEAN CORPUSCULAR VOLUME 87 fL (80-99); MEAN PLATELET VOLUME 10.3 fL (9.0-12.2); MONOCYTES # (AUTO) 0.9 10^3/uL (0.0-1.0); MONOCYTES % (AUTO) 10 % (0-12); NEUTROPHILS # (AUTO) 6.2 10^3/uL (1.8-7.8); NEUTROPHILS % (AUTO) 67 % (42-75); PLATELET COUNT 297 10^3/uL (130-400); WHITE BLOOD COUNT 9.2 10^3/uL (4.3-11.0)
[2021-01-08 07:00] LABS: ALBUMIN 3.5 GM/DL (3.2-4.5); POTASSIUM 3.4 MMOL/L (3.6-5.0)
[2021-01-08 07:01] LABS: CALCIUM 10.4 MG/DL (8.5-10.1)
[2021-01-08 07:03] LABS: TOTAL PROTEIN 6.3 GM/DL (6.4-8.2)
[2021-01-08 07:05] LABS: BILIRUBIN,TOTAL 0.5 MG/DL (0.1-1.0)
[2021-01-08 07:06] LABS: CREATININE SERUM 1.95 MG/DL (0.60-1.30)
[2021-01-08 07:37] VITALS: BP 194/76
[2021-01-08 08:03] VITALS: BP 150/67
[2021-01-08] MEDS: ALLOPURINOL 100 MG (ZYLOPRIM) TAB PO SCH (08:11)
[2021-01-08] MEDS: ATENOLOL 50 MG (TENORMIN) TAB PO SCH ×2 (08:11→21:29)
[2021-01-08] MEDS: amLODIPine 5 MG (NORVASC) TAB PO SCH ×2 (08:11→21:29)
[2021-01-08] MEDS: ASPIRIN E.C. 81 MG (ECOTRIN) TAB PO SCH (08:11)
[2021-01-08] MEDS: LORATADINE (CLARITIN) 10 MG TAB PO SCH (08:11)
[2021-01-08] MEDS: VALSARTAN 160 MG (DIOVAN) TABLET PO SCH (08:11)
[2021-01-08] MEDS: CLOPIDOGREL 75 MG (PLAVIX) TABLET PO SCH (08:12)
[2021-01-08] MEDS: ACETAMINOPHEN 325 MG TABLET PO PRN ×2 (08:13→18:17)
[2021-01-08] MEDS: SENNA W/DOCUSATE (SENOKOT S) TABLET PO SCH ×2 (08:20→19:46)
[2021-01-08] MEDS: polyethylene glycoL POWDER 17 GM (MIRALAX) PACK PO SCH ×2 (08:20→19:46)
[2021-01-08] MEDS: FLUOROMETHOLONE 0.1% OU SCH (08:20)
--- NOTE | 2021-01-08 09:19 | Speech Therapy Daily Note ---
Speech Daily Progress Note Subjective Date Seen by Provider: Jan 08, 2021 Time Seen by Provider: 00:30 Patient was resting in her recliner following her PT session. Objective Patient completed a series of memory tasks at 80% with 20% cues. Assessment Assessment Current Status: Good Progress Treatment Plan Continue Plan of Care Speech Short Term Goals Short Term Goals Short Term Goals 1) The patient will complete safety awareness tasks related to her daily needs at 80% or greater with minimal cues. 2) The patient will complete memory tasks related to her daily needs at 80% or greater with minimal cues. 3) The patient will complete problem solving tasks related to her daily needs at 80% or greater with minimal cues. Speech Director Of Academic Goals [facility] Goals Patient will improve cognitive communication abilities in order to return home safely with decreased assistance. Speech-Plan Patient/Family Goals Patient/Family Goals: Patient plans to return to her home where she lives alone. Treatment Plan Speech Therapy Treatment Plan: Continue Plan of Care Treatment Duration: Jan 19, 2021 Frequency: 4 times per week (Patient will receive skilled ST 4-5x per week) Estimated Hrs Per Day: .5 hour per day Rehab Potential: Fair Barriers to Learning: Patient's recent CVA with deficits/debility Pt/Family Agrees to Plan: Yes Safety Risks/Education Teaching Recipient: Patient Teaching Methods: Demonstration, Discussion Response to Teaching: Verbalize Understanding, Return Demonstration Education Topics Provided: Continued safety and communication of wants/needs Time Speech Therapy Time In: 09:00 Speech Therapy Time Out: 09:30 Total Billed Time: 30 Billed Treatment Time 1, SLMICHAEL Harley Jan 08, 2021 09:19
--- NOTE | 2021-01-08 09:50 | PM&R Progress Note ---
Subjective HPI/CC On Admission Date Seen by Provider: Jan 08, 2021 Time Seen by Provider: 09:30 Subjective/Events-last exam 01/08/2021: Pt doing a lot better Nicotine patch was requested Creatinine 1.95 Bowels are moving Requires redirection with dates and times Back pain is managed with Tylenol, Ultram, Heating pad and Diclofenac gel Remains on a bed alarm and a chair alarm 01/07/2021: Confusion is improved Slept pretty well last night No falls but increased risk Bed and chair alarms in place No pain is reported 01/06/2021: Patient doing very well No major pain is reported Check meds and labs Patient slept on and off last night Had some confusion last night Converses a lot Review of Systems General: Fatigue, Malaise Objective Exam Vital Signs Vital Signs Date Time Temp Pulse Resp B/P (MAP) Pulse Ox O2 Delivery O2 Flow Rate FiO2 01/08/21 21:00 Room Air 01/08/21 20:00 36.6 60 16 151/63 (92) 99 Capillary Refill : General Appearance: No Apparent Distress, Anxious, Chronically ill HEENT: PERRL/EOMI, Normal ENT Inspection, Pharynx Normal, Other (left subconjunctival hemorrhage) Neck: Full Range of Motion, Normal Inspection, Non Tender, Supple Respiratory: Lungs Clear, No Accessory Muscle Use, No Respiratory Distress, Decreased Breath Sounds Cardiovascular: Regular Rate, Rhythm, Systolic Murmur, Gallop/S4 Gastrointestinal: Normal Bowel Sounds, No Organomegaly, No Pulsatile Mass, Non Tender, Soft Rectal: Deferred Back: No CVA Tenderness Extremity: Non Tender, No Calf Tenderness, Pedal Edema (1) Neurologic/Psychiatric: Alert, Oriented x3, Depressed Affect, Facial Droop (right), Other (slurred speech--mild) Skin: Warm/Dry, Ecchymosis (forearms) Results/Procedures Lab Laboratory Tests 01/08/21 06:16 Patient resulted labs reviewed. FIM Transfers Therapy Code Descriptions/Definitions Functional [place] Measure: 0=Not Assessed/NA 4=Minimal Assistance 1=Total Assistance 5=Supervision or Setup 2=Maximal Assistance 6=Modified [place] 3=Moderate Assistance 7=Complete IndependenceSCALE: Activities may be completed with or without assistive devices. 1-Ndkzidueab-jiitgef completes the activity by him/herself with no assistance from a helper. 5-Set-up or Clean-up Assistance-helper sets up or cleans up; patient completes activity. [place] assists only prior to or following the activity. 4-Supervision or Touching Assistance-helper provides verbal cues and/or touching /steadying and/or contact guard assistance as patient completes activity. Assistance may be provided throughout the activity or intermittently. 3-Partial/Moderate Assistance-helper does LESS THAN HALF the effort. [place] lifts, holds or supports trunk or limbs, but provides less than half the effort. 2-Substantial/Maximal Assistance-helper does MORE THAN HALF the effort. [place] lifts or holds trunk or limbs and provides more than half the effort. 7-Nwlhxkmoj-ihvhyq does ALL the effort. Patient does none of the effort to complete the activity. Or, the assistance of 2 or more helpers is required for the patient to complete the activity. If activity was not attempted, code reason: 7-Patient Refused. 9-Not Applicable-not attempted and the patient did not perform the activity before the current illness, exacerbation or injury. 10-Not Attempted due to Environmental Limitations-(lack of equipment, weather restraints, etc.). 88-Not Attempted due to Medical Conditions or Safety Concerns. Roll Left to Right (QC): 6 Sit to Lying (QC): 6 Sit to Stand (QC): 4 Chair/Spn-uu-Uiljo Xfer(QC): 4 Car Transfer (QC): 3 Gait Training Does the Patient Walk?: Yes Distance: 300 ft Walk 10 feet (QC): 4 Walk 50 ft with 2 Turns(QC): 4 Walk 150 ft (QC): 4 Walking 10ft/uneven surface-QC: 3 Gait Persons Needed: 1 Gait Assistive Device: FWW Wheelchair Training Does the Pt Use a Wheelchair?: Yes Distance: 200' Wheel 50 ft with 2 turns (QC): 2 Wheel 150 ft (QC): 2 Stair Training #of Steps: 1 1 Step (curb) (QC): 3 4 Steps (QC): 88 12 Steps (QC): 88 Balance Picking up an Object (QC): 88 ADL-Treatment Eating (QC): 5 (set up assistance per clincial judgement) Oral Hygiene (QC): 4 (CGA standing at sink. 1 verbal cue to locate cup at sink) Shower/Bathe Self (QC): 4 (CGA in stand, min verbal cues for sequencing.) Upper Body Dressing (QC): 3 (Mod A with donning sinker puller shirt, max verbal cues for orientation of shirt.) Lower Body Dressing (QC): 3 (Mod A with donning LE clothing, max verbal cues for orientation) On/Off Footwear (QC): 3 (Pt able to doff shoes, donned shoes on wrong feet requiring cue. 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
--- NOTE | 2021-01-08 11:25 | Physical Therapy Daily Note ---
PT Daily Note-Current Subjective Pt sitting in recliner upon arrival. Pt agrees to PT. Pt although talkative was cognitive of situation which brought her to hospital. Pain Numeric Pain Scale: 5-Moderate Pain Location: Lower Location Body Site: Back Pain Description: Ache Mental Status Patient Orientation: Person, Confused, Place Transfers SCALE: Activities may be completed with or without assistive devices. 7-Eyadwlyspv-qfgrycf completes the activity by him/herself with no assistance from a helper. 5-Set-up or Clean-up Assistance-helper sets up or cleans up; patient completes activity. [place] assists only prior to or following the activity. 4-Supervision or Touching Assistance-helper provides verbal cues and/or touching/steadying and/or contact guard assistance as patient completes activity. Assistance may be provided throughout the activity or intermittently. 3-Partial/Moderate Assistance-helper does LESS THAN HALF the effort. [place] lifts, holds or supports trunk or limbs, but provides less than half the effort. 2-Substantial/Maximal Assistance-helper does MORE THAN HALF the effort. [place] lifts or holds trunk or limbs and provides more than half the effort. 6-Eycfvzaex-nldjyl does ALL the effort. Patient does none of the effort to complete the activity. Or, the assistance of 2 or more helpers is required for the patient to complete the activity. If activity was not attempted, code reason: 7-Patient Refused. 9-Not Applicable-not attempted and the patient did not perform the activity before the current illness, exacerbation or injury. 10-Not Attempted due to Environmental Limitations-(lack of equipment, weather restraints, etc.). 88-Not Attempted due to Medical Conditions or Safety Concerns. Sit to Stand (QC): 4 Toilet Transfer (QC): 4 CGA for Safety Weight Bearing Full Weight Bearing Full Weight Bearing Gait Training Does the Patient Walk?: Yes Distance: 150' Walk 10 feet (QC): 4 Walk 50 ft with 2 Turns(QC): 4 Walk 150 ft (QC): 4 Gait Persons Needed: 1 Gait Assistive Device: FWW Wheelchair Training Does the Pt Use a Wheelchair?: No Treatments Pt was getting morning meds from Nurse upon arrival. Pt is very slow in taking them, one at a time and needs redirection to stay on task. Pt stands and uses BR. Pt amb. in hallway before using NuStep for 7m at [facility] 3. Pt reports back discomfort so INSTRUCTOR PAINTING issues and reviews written HEP Supine & Seated Ex. Pt returns to room and rest in recliner at end of tx. Assessment Current Status: Fair Progress Pt needs redirection to stay on task multiple times during tx. Pt is limited by back pain but only rates 5/10, given pain med at start of tx. Kpad is used upon return to recliner. PT Short Term Goals Short Term Goals Time Frame: Jan 12, 2021 Roll Left & Right: 6 Sit to lyin Lying to sitting on side of be: 6 Sit to stand: 4 Chair/pbi-cn-qcajm transfer: 4 Walk 10 feet: 4 Walk 50 feet with two turns: 4 Walk 150 feet: 4 PT Skilled Nursing Goals Bulk Sealer Goals PT Bulk Sealer Goals Time Frame: Jan 26, 2021 Roll Left & Right (QC): 6 Sit to Lying (QC): 6 Lying-Sitting on Side/Bed(QC): 6 Sit to Stand (QC): 4 (SBA) Chair/Grw-at-Xkopl Xfer(QC): 4 (SBA) Toilet Transfer (QC): 4 (SBA) Car Transfer (QC): 4 (SBA) Does the Patient Walk: Yes Walk 10 feet (QC): 4 (SBA) Walk 50ft with 2 Turns (QC): 4 (SBA) Walk 150 ft (QC): 4 (SBA) Walking 10ft on Uneven Surface: 4 (SBA) 1 Step (curb) (QC): 4 (SBA) 4 Steps (QC): 4 (SBA) 12 Steps (QC): 88 Picking up an Object (QC): 4 Wheel 50 feet with 2 turns (QC: 9 Wheel 150 feet: 9 PT Plan Problem List Problem List: Activity Tolerance, Safety Treatment/Plan Treatment Plan: Continue Plan of Care Treatment Plan: Bed Mobility, Education, Functional Activity Anish, Functional Strength, Group Therapy, Gait, Safety, Therapeutic Exercise, Transfers Treatment Duration: Jan 26, 2021 Frequency: At least 5 of 7 days/Wk (IRF) Estimated Hrs Per Day: 1.5 hours per day Patient and/or Family Agrees t: Yes Safety Risks/Education Patient Education: Transfer Techniques, Issued Written HEP, Correct Positioning, Safety Issues Teaching Recipient: Patient Teaching Methods: Discussion Response to Teaching: Reinforcement Needed Time/GCodes Time In: 800 Time Out: 900 Total Billed Treatment Time: 60 Total Billed Treatment 1, FA x2 (25m), GT (15m) & EX (20m) MI YEH INSTRUCTOR PAINTING Jan 08, 2021 11:25
--- NOTE | 2021-01-08 13:28 | Occupational Ther Daily Note ---
OT Current Status-Daily Note Subjective Pt. reports pain in lower back but does not report pain level. Pt. has heating pad on back, and has had pain medication. Mental Status/Objective Patient Orientation: Person ADL-Treatment Therapy Code Descriptions/Definitions Functional [place] Measure: 0=Not Assessed/NA 4=Minimal Assistance 1=Total Assistance 5=Supervision or Setup 2=Maximal Assistance 6=Modified [place] 3=Moderate Assistance 7=Complete IndependenceSCALE: Activities may be completed with or without assistive devices. 7-Wycqvioffp-imfhrpd completes the activity by him/herself with no assistance from a helper. 5-Set-up or Clean-up Assistance-helper sets up or cleans up; patient completes activity. [place] assists only prior to or following the activity. 4-Supervision or Touching Assistance-helper provides verbal cues and/or touching/steadying and/or contact guard assistance as patient completes activity. Assistance may be provided throughout the activity or intermittently. 3-Partial/Moderate Assistance-helper does LESS THAN HALF the effort. [place] lifts, holds or supports trunk or limbs, but provides less than half the effort. 2-Substantial/Maximal Assistance-helper does MORE THAN HALF the effort. [place] lifts or holds trunk or limbs and provides more than half the effort. 2-Inxqfiwlw-mhdcjd does ALL the effort. Patient does none of the effort to complete the activity. Or, the assistance of 2 or more helpers is required for the patient to complete the activity. If activity was not attempted, code reason: 7-Patient Refused. 9-Not Applicable-not attempted and the patient did not perform the activity before the current illness, exacerbation or injury. 10-Not Attempted due to Environmental Limitations-(lack of equipment, weather restraints, etc.). 88-Not Attempted due to Medical Conditions or Safety Concerns. Oral Hygiene (QC): 4 (CGA standing at sink to brush teeth.) Shower/Bathe Self (QC): 4 (CGA in stance and cues for sequencing and to remember to wash all parts. ) Upper Body Dressing (QC): 4 (SBA) Lower Body Dressing (QC): 4 On/Off Footwear: 3 (Mod assist to don shoes. Pt. had difficulty donning shoes due to them being tight, and pt.'s back hurting.) Other Treatment Pt. up in chair when OT entered room. Pt. agrees to shower/dress. Cues required for sequencing all tasks, and memory. Pt. does not know the date, but does know where she is. She states pieces of what happened to her, but these do not correspond to her medical history. After showering/ADLs, pt. participated in cognitive activity seated in chair. Worked on naming, grouping, and verbal se quencing activity. Pt. did well when functional/physical component was taken out of it. Pt. able to be approximately 95% accurate with verbal tasks. All needs met up in chair. Chair alarm set. Education OT Patient Education: Correct positioning, Modified ADL techniques, Progress toward Goal/Update tx plan, Purpose of tx/functional activities, Reviewed precautions, Rehab process, Safety issues, Transfer techniques Teaching Recipient: Patient Teaching Methods: Demonstration, Discussion Response to Teaching: Verbalize Understanding, Return Demonstration, Reinforcement Needed OT Short Term Goals Short Term Goals Time Frame: Jan 12, 2021 Upper body dressin Lower body dressin Putting on/taking off footwear: 5 OT Wire Frame Lampshade Maker Goals Wire Frame Lampshade Maker Goals Time Frame: Jan 26, 2021 Eating (QC): 6 Oral Hygiene (QC): 6 Toileting Hygiene (QC): 6 Shower/Bathe Self (QC): 6 Upper Body Dressing (QC): 6 Lower Body Dressing (QC): 6 On/Off Footwear (QC): 6 1=Demonstrate adherence to instructed precautions during ADL tasks. 2=Patient will verbalize/demonstrate understanding of assistive devices/modifications for ADL. 3=Patient will improve strength/tolerance for activity to enable patient to perform ADL's. OT Education/Plan Problem List/Assessment Assessment: Decreased Activ Tolerance, Impaired Cognition, Impaired I ADL's, Impaired Self-Care Skills Discharge Recommendations Plan/Recommendations: Continue POC Therapy Discharge Recommendati: Post Acute OT Treatment Plan/Plan of Care Treatment,Training & Education: Yes Patient would benefit from OT for education, treatment and training to promote independence in ADL's, mobility, safety and/or upper extremity function for ADL's. Plan of Care: ADL Retraining, Functional Mobility, Group Exercise/Act as Ind, UE Funct Exercise/Act Treatment Duration: Jan 26, 2021 Frequency: At least 5 of 7 days/Wk (IRF) Estimated Hrs Per Day: 1.5 hours per day Agreement: Yes Rehab Potential: Fair Time/GCodes Start Time: 09:45 Stop Time: 11:00 Total Time Billed (hr/min): 75 Billed Treatment Time 1, ADL x 60minutes, FA x 15minutes KELE[place]I P[place] OT Jan 08, 2021 13:28
--- NOTE | 2021-01-08 14:08 | Physical Therapy Daily Note ---
PT Daily Note-Current Subjective Pt sitting in recliner upon arrival. Pt agrees to PT. Pain Numeric Pain Scale: 3 Location: Lower Location Body Site: Back Pain Description: Ache Mental Status Patient Orientation: Person, Confused, Place Transfers SCALE: Activities may be completed with or without assistive devices. 3-Azrisjqlcw-faweizi completes the activity by him/herself with no assistance from a helper. 5-Set-up or Clean-up Assistance-helper sets up or cleans up; patient completes activity. [place] assists only prior to or following the activity. 4-Supervision or Touching Assistance-helper provides verbal cues and/or touching/steadying and/or contact guard assistance as patient completes activity. Assistance may be provided throughout the activity or intermittently. 3-Partial/Moderate Assistance-helper does LESS THAN HALF the effort. [place] lifts, holds or supports trunk or limbs, but provides less than half the effort. 2-Substantial/Maximal Assistance-helper does MORE THAN HALF the effort. [place] lifts or holds trunk or limbs and provides more than half the effort. 8-Mekhmvwoh-pgjdgn does ALL the effort. Patient does none of the effort to complete the activity. Or, the assistance of 2 or more helpers is required for the patient to complete the activity. If activity was not attempted, code reason: 7-Patient Refused. 9-Not Applicable-not attempted and the patient did not perform the activity befo re the current illness, exacerbation or injury. 10-Not Attempted due to Environmental Limitations-(lack of equipment, weather re straints, etc.). 88-Not Attempted due to Medical Conditions or Safety Concerns. Sit to Stand (QC): 4 Weight Bearing Full Weight Bearing Full Weight Bearing Gait Training Does the Patient Walk?: Yes Distance: 175' Walk 10 feet (QC): 4 Walk 50 ft with 2 Turns(QC): 4 Walk 150 ft (QC): 4 Gait Persons Needed: 1 Gait Assistive Device: FWW Pt fatigues and needs RB. Wheelchair Training Does the Pt Use a Wheelchair?: No Treatments TF to standing and amb. in hallway. Pt takes RB then amb. back to room. Pt resting in recliner with all needs met, call light in hand. Assessment Current Status: Good Progress Pt's cognition limits safety at times. PT Short Term Goals Short Term Goals Time Frame: Jan 12, 2021 Roll Left & Right: 6 Sit to lyin Lying to sitting on side of be: 6 Sit to stand: 4 Chair/oft-xm-cydwu transfer: 4 Walk 10 feet: 4 Walk 50 feet with two turns: 4 Walk 150 feet: 4 PT Tc Operator Goals Correction Goals PT Correction Goals Time Frame: Jan 26, 2021 Roll Left & Right (QC): 6 Sit to Lying (QC): 6 Lying-Sitting on Side/Bed(QC): 6 Sit to Stand (QC): 4 (SBA) Chair/Hgk-eh-Rgsfw Xfer(QC): 4 (SBA) Toilet Transfer (QC): 4 (SBA) Car Transfer (QC): 4 (SBA) Does the Patient Walk: Yes Walk 10 feet (QC): 4 (SBA) Walk 50ft with 2 Turns (QC): 4 (SBA) Walk 150 ft (QC): 4 (SBA) Walking 10ft on Uneven Surface: 4 (SBA) 1 Step (curb) (QC): 4 (SBA) 4 Steps (QC): 4 (SBA) 12 Steps (QC): 88 Picking up an Object (QC): 4 Wheel 50 feet with 2 turns (QC: 9 Wheel 150 feet: 9 PT Plan Problem List Problem List: Activity Tolerance, Safety Treatment/Plan Treatment Plan: Continue Plan of Care Treatment Plan: Bed Mobility, Education, Functional Activity Anish, Functional Strength, Group Therapy, Gait, Safety, Therapeutic Exercise, Transfers Treatment Duration: Jan 26, 2021 Frequency: At least 5 of 7 days/Wk (IRF) Estimated Hrs Per Day: 1.5 hours per day Patient and/or Family Agrees t: Yes Safety Risks/Education Patient Education: Safety Issues Teaching Recipient: Patient Teaching Methods: Discussion Response to Teaching: Reinforcement Needed Time/GCodes Time In: 1325 Time Out: 1345 Total Billed Treatment Time: 20 Total Billed Treatment 1, GT (20m) MI YEH TUBE BENDING MACHINE OPERATOR Jan 08, 2021 14:08
--- NOTE | 2021-01-08 18:52 | Progress Note ---
Subjective Date Seen by a Provider: Jan 08, 2021 Time Seen by a Provider: 12:30 Subjective/Events-last exam Fwup right sided MCA infarct, HTN, COPD, Renal Insufficiency. Sitting up in chair and states wants to go home. Objective Exam Vital Signs Date Time Temp Pulse Resp B/P (MAP) Pulse Ox O2 Delivery O2 Flow Rate FiO2 01/08/21 08:10 Room Air 01/08/21 08:03 62 18 150/67 (94) 97 Room Air 01/08/21 07:37 36.2 64 16 194/76 (115) 96 Room Air 01/07/21 21:00 Room Air 01/07/21 20:00 36.6 62 14 129/61 (83) 94 Room Air Capillary Refill : General Appearance: No Apparent Distress Respiratory: Lungs Clear Cardiovascular: Regular Rate, Rhythm Gastrointestinal: normal bowel sounds, non tender, soft Extremity: Non Tender, No Calf Tenderness, No Pedal Edema Neurologic/Psychiatric: Alert, Oriented x3 Results Lab Laboratory Tests 01/08/21 06:16: White Blood Count 9.2, Red Blood Count 3.94, Hemoglobin 11.4L, Hematocrit 34L, Mean Corpuscular Volume 87, Mean Corpuscular Hemoglobin 29, Mean Corpuscular Hemoglobin Concent 33, Red Cell Distribution Width 13.5, Platelet Count 297, Mean Platelet Volume 10.3, Immature Granulocyte % (Auto) 0, Neutrophils (%) (Auto) 67, Lymphocytes (%) (Auto) 20, Monocytes (%) (Auto) 10, Eosinophils (%) (Auto) 3, Basophils (%) (Auto) 0, Neutrophils # (Auto) 6.2, Lymphocytes # (Auto) 1.8, Monocytes # (Auto) 0.9, Eosinophils # (Auto) 0.3, Basophils # (Auto) 0.0, Immature Granulocyte # (Auto) 0.0, Sodium Level 138, Potassium Level 3.4L, Chloride Level 101, Carbon Dioxide Level 24, Anion Gap 13, Blood Urea Nitrogen 37H, Creatinine 1.95H, Estimat Glomerular Filtration Rate 25, BUN/Creatinine Ratio 19, Glucose Level 91, Calcium Level 10.4H, Corrected Calcium 10.8H, Total Bilirubin 0.5, Aspartate Amino Transf (AST/SGOT) 19, Alanine Aminotransferase (ALT/SGPT) 18, Alkaline Phosphatase 78, Total Protein 6.3L, Albumin 3.5 Assessment/Plan Assessment/Plan Assess & Plan/Chief Complaint 1. Right MCA Infarct--OT/PT and ST, on aspirin/plavix 2. HTN--stable 3. COPD--stable 4. Chronic Renal Insuff--will monitor BUN/Cr Clinical Quality Measures Admission Status Admission Dx 1. Recent Right Sided MCA infarct with resulting slurred speech, left sided neglect and decline in ADLs--admitted to rehab for PT/OT/ST, on plavix/aspirin and atorvastatin 2. Hypertension--on amlodopine, atenolol, valsartan, and HCTZ--will monitor BP and adjust meds as needed during rehab stay 3. COPD with tobacco abuse--patient at high risk for relapsing to tobacco use on discharge 4. Chronic Renal Insufficiency--updated lab to see new baseline 5. Gout--allopurinol restarted 6. C1-C2 fracture--no complaints of cervical pain, determined not to be acute 7. Generalized osteoarthritis--tylenol prn and tramadol for severe pain LOW IBRAHIM DO Jan 08, 2021 18:52
[2021-01-08 20:00] VITALS: BP 151/63
[2021-01-08] MEDS: MONTELUKAST 10 MG (SINGULAIR) TAB PO SCH (21:29)
[2021-01-08] MEDS: DICLOFENAC 1% GEL 100 GM (VOLTAREN) TUBE TOP PRN (21:32)
[2021-01-09] MEDS: KCL 10 MEQ TAB (MICRO K) PO SCH (06:02)
--- NOTE | 2021-01-09 06:15 | PM&R Progress Note ---
Subjective HPI/CC On Admission Date Seen by Provider: Jan 09, 2021 Time Seen by Provider: 10:00 Subjective/Events-last exam 01/09/2021: Pt doing a little better Memory is better Days and nights are now back on track Loose stools so will change laxatives to prn 01/08/2021: Pt doing a lot better Nicotine patch was requested Creatinine 1.95 Bowels are moving Requires redirection with dates and times Back pain is managed with Tylenol, Ultram, Heating pad and Diclofenac gel Remains on a bed alarm and a chair alarm 01/07/2021: Confusion is improved Slept pretty well last night No falls but increased risk Bed and chair alarms in place No pain is reported 01/06/2021: Patient doing very well No major pain is reported Check meds and labs Patient slept on and off last night Had some confusion last night Converses a lot Review of Systems General: Fatigue, Malaise Objective Exam Vital Signs Vital Signs Date Time Temp Pulse Resp B/P (MAP) Pulse Ox O2 Delivery O2 Flow Rate FiO2 01/09/21 21:01 36.6 01/09/21 21:00 Room Air 01/09/21 20:00 62 16 145/70 (95) 97 Capillary Refill : General Appearance: No Apparent Distress, Anxious, Chronically ill HEENT: PERRL/EOMI, Normal ENT Inspection, Pharynx Normal, Other (left subconjunctival hemorrhage) Neck: Full Range of Motion, Normal Inspection, Non Tender, Supple Respiratory: Lungs Clear, No Accessory Muscle Use, No Respiratory Distress, Decreased Breath Sounds Cardiovascular: Regular Rate, Rhythm, Systolic Murmur, Gallop/S4 Gastrointestinal: Normal Bowel Sounds, No Organomegaly, No Pulsatile Mass, Non Tender, Soft Rectal: Deferred Back: No CVA Tenderness Extremity: Non Tender, No Calf Tenderness, Pedal Edema (1) Neurologic/Psychiatric: Alert, Oriented x3, Depressed Affect, Facial Droop (right), Other (slurred speech--mild) Skin: Warm/Dry, Ecchymosis (forearms) Results/Procedures Lab Patient resulted labs reviewed. FIM Transfers Therapy Code Descriptions/Definitions Functional [place] Measure: 0=Not Assessed/NA 4=Minimal Assistance 1=Total Assistance 5=Supervision or Setup 2=Maximal Assistance 6=Modified [place] 3=Moderate Assistance 7=Complete IndependenceSCALE: Activities may be completed with or without assistive devices. 4-Moqvehignm-jbtjqby completes the activity by him/herself with no assistance from a helper. 5-Set-up or Clean-up Assistance-helper sets up or cleans up; patient completes activity. [place] assists only prior to or following the activity. 4-Supervision or Touching Assistance-helper provides verbal cues and/or touching/steadying and/or contact guard assistance as patient completes activity . Assistance may be provided throughout the activity or intermittently. 3-Partial/Moderate Assistance-helper does LESS THAN HALF the effort. [place] lifts, holds or supports trunk or limbs, but provides less than half the effort. 2-Substantial/Maximal Assistance-helper does MORE THAN HALF the effort. [place] lifts or holds trunk or limbs and provides more than half the effort. 1-Czhvtryqw-arhonl does ALL the effort. Patient does none of the effort to complete the activity. Or, the assistance of 2 or more helpers is required for the patient to complete the activity. If activity was not attempted, code reason: 7-Patient Refused. 9-Not Applicable-not attempted and the patient did not perform the activity before the current illness, exacerbation or injury. 10-Not Attempted due to Environmental Limitations-(lack of equipment, weather restraints, etc.). 88-Not Attempted due to Medical Conditions or Safety Concerns. Roll Left to Right (QC): 6 Sit to Lying (QC): 6 Sit to Stand (QC): 4 Chair/Iwd-tx-Vlfrp Xfer(QC): 4 Car Transfer (QC): 3 Gait Training Does the Patient Walk?: Yes Distance: 175' Walk 10 feet (QC): 4 Walk 50 ft with 2 Turns(QC): 4 Walk 150 ft (QC): 4 Walking 10ft/uneven surface-QC: 3 Gait Persons Needed: 1 Gait Assistive Device: FWW Wheelchair Training Does the Pt Use a Wheelchair?: No Distance: 200' Wheel 50 ft with 2 turns (QC): 2 Wheel 150 ft (QC): 2 Stair Training #of Steps: 1 1 Step (curb) (QC): 3 4 Steps (QC): 88 12 Steps (QC): 88 Balance Picking up an Object (QC): 88 ADL-Treatment Eating (QC): 5 (set up assistance per clincial judgement) Oral Hygiene (QC): 4 (CGA standing at sink to brush teeth.) Shower/Bathe Self (QC): 4 (CGA in stance and cues for sequencing and to remember to wash all parts. ) Upper Body Dressing (QC): 4 (SBA) Lower Body Dressing (QC): 4 On/Off Footwear (QC): 3 (Mod assist to don shoes. Pt. had difficulty donning shoes due to them being tight, and pt.'s back hurting.) Toileting Hygiene (QC): 4 (CGA) Assessment/Plan Assessment and Plan Assess & Plan/Chief Complaint Assessment: CVA from right-sided MCA stroke with left-sided weakness Hypertension COPD Recent former smoker Hyperlipidemia Confusion/cognitive deficit Plan: Rehab protocol Monitor blood pressure Fall risk Assistive devices to increase independence 01/06/2021: Supportive care Confusion noted fall risk 01/07/2021: Supportive care Monitor confusion Fall risk 01/08/2021: Nicotine patch Replace potassium Supportive care 01/09/2021: Confusion improved Nicotine patch Supportive care (1) CVA (cerebral vascular accident) MIGEL SANCHEZ DO Jan 09, 2021 06:15
[2021-01-09 07:22] VITALS: BP 167/71
[2021-01-09] MEDS: ASPIRIN E.C. 81 MG (ECOTRIN) TAB PO SCH (07:41)
[2021-01-09] MEDS: VALSARTAN 160 MG (DIOVAN) TABLET PO SCH (07:41)
[2021-01-09] MEDS: ALLOPURINOL 100 MG (ZYLOPRIM) TAB PO SCH (07:42)
[2021-01-09] MEDS: LORATADINE (CLARITIN) 10 MG TAB PO SCH (07:42)
[2021-01-09] MEDS: amLODIPine 5 MG (NORVASC) TAB PO SCH ×2 (07:42→21:01)
[2021-01-09] MEDS: ATENOLOL 50 MG (TENORMIN) TAB PO SCH ×2 (07:42→21:01)
[2021-01-09] MEDS: CLOPIDOGREL 75 MG (PLAVIX) TABLET PO SCH (07:42)
[2021-01-09] MEDS: ACETAMINOPHEN 325 MG TABLET PO PRN ×2 (07:42→21:01)
[2021-01-09] MEDS: FLUOROMETHOLONE 0.1% OU SCH (07:43)
--- NOTE | 2021-01-09 09:02 | Physical Therapy Daily Note ---
PT Daily Note-Current Subjective Pt sitting in recliner upon arrival. Pt agrees to PT. Pain Numeric Pain Scale: 5-Moderate Pain Location: Lower Location Body Site: Back Pain Description: Ache Mental Status Patient Orientation: Person, Confused, Place Transfers SCALE: Activities may be completed with or without assistive devices. 5-Aqsoenjqke-cfcjpvd completes the activity by him/herself with no assistance from a helper. 5-Set-up or Clean-up Assistance-helper sets up or cleans up; patient completes activity. [place] assists only prior to or following the activity. 4-Supervision or Touching Assistance-helper provides verbal cues and/or touching/steadying and/or contact guard assistance as patient completes activity. Assistance may be provided throughout the activity or intermittently. 3-Partial/Moderate Assistance-helper does LESS THAN HALF the effort. [place] lifts, holds or supports trunk or limbs, but provides less than half the effort. 2-Substantial/Maximal Assistance-helper does MORE THAN HALF the effort. [place] lifts or holds trunk or limbs and provides more than half the effort. 8-Jpbfpihyf-rdneds does ALL the effort. Patient does none of the effort to complete the activity. Or, the assistance of 2 or more helpers is required for the patient to complete the activity. If activity was not attempted, code reason: 7-Patient Refused. 9-Not Applicable-not attempted and the patient did not perform the activity before the current illness, exacerbation or injury. 10-Not Attempted due to Environmental Limitations-(lack of equipment, weather restraints, etc.). 88-Not Attempted due to Medical Conditions or Safety Concerns. Sit to Stand (QC): 5 Toilet Transfer (QC): 5 Weight Bearing Full Weight Bearing Full Weight Bearing Gait Training Does the Patient Walk?: Yes Distance: 150' Walk 10 feet (QC): 5 Walk 50 ft with 2 Turns(QC): 5 Walk 150 ft (QC): 5 Gait Persons Needed: 1 Gait Assistive Device: FWW VC for using the FWW until sitting, not letting go then reaching for chair. Wheelchair Training Does the Pt Use a Wheelchair?: No Exercises Supine Ex: Ankle pumps, Quad Set, Glut sets, Heel Slides, Short Arc Quads, Straight leg raise, Hip abd/add Supine Reps: 15 Seated Therapy Exercises: Ankle pumps, Long arc quads, Hip flexion, Glut set Seated Reps: 15 NuStep Minutes: 10 NuStep Workload: 3 Treatments 800-900: TF to standing and wants to use BR. Pt amb. in hallway ending in Therapy Gym where she completes Seated Ex then uses NuStep for 10m at WL 3. Pt amb. before returning to room at end of tx. All needs met, call light in hand. [id number]: Pt completes Supine Ex with RB as needed. Nurse applies Voltran gel for pain relief. All needs met, call light in hand. Assessment Current Status: Fair Progress Pt's perceived back discomfort limits tx, needs encouragement to continue at times. PT Short Term Goals Short Term Goals Time Frame: Jan 12, 2021 Roll Left & Right: 6 Sit to lyin Lying to sitting on side of be: 6 Sit to stand: 4 Chair/wge-ye-peybr transfer: 4 Walk 10 feet: 4 Walk 50 feet with two turns: 4 Walk 150 feet: 4 PT Retirement Goals Phosphoric Acid Supervisor Goals PT Retirement Goals Time Frame: Jan 26, 2021 Roll Left & Right (QC): 6 Sit to Lying (QC): 6 Lying-Sitting on Side/Bed(QC): 6 Sit to Stand (QC): 4 (SBA) Chair/Mgm-pc-Podll Xfer(QC): 4 (SBA) Toilet Transfer (QC): 4 (SBA) Car Transfer (QC): 4 (SBA) Does the Patient Walk: Yes Walk 10 feet (QC): 4 (SBA) Walk 50ft with 2 Turns (QC): 4 (SBA) Walk 150 ft (QC): 4 (SBA) Walking 10ft on Uneven Surface: 4 (SBA) 1 Step (curb) (QC): 4 (SBA) 4 Steps (QC): 4 (SBA) 12 Steps (QC): 88 Picking up an Object (QC): 4 Wheel 50 feet with 2 turns (QC: 9 Wheel 150 feet: 9 PT Plan Problem List Problem List: Activity Tolerance, Safety Treatment/Plan Treatment Plan: Continue Plan of Care Treatment Plan: Bed Mobility, Education, Functional Activity Anish, Functional Strength, Group Therapy, Gait, Safety, Therapeutic Exercise, Transfers Treatment Duration: Jan 26, 2021 Frequency: At least 5 of 7 days/Wk (IRF) Estimated Hrs Per Day: 1.5 hours per day Patient and/or Family Agrees t: Yes Safety Risks/Education Patient Education: Gait Training, Correct Positioning, Safety Issues Teaching Recipient: Patient Teaching Methods: Discussion Response to Teaching: Verbalize Understanding Time/GCodes Time In: 800 Time Out: 900 Total Billed Treatment Time: 60 Total Billed Treatment 800-900: 1, GT (15m), FA (20m) & EX x2 (25m) [id number]: 1, EX (20m) MI YEH PTA Jan 09, 2021 09:02
[2021-01-09] MEDS: SENNA W/DOCUSATE (SENOKOT S) TABLET PO SCH (09:07)
[2021-01-09] MEDS: polyethylene glycoL POWDER 17 GM (MIRALAX) PACK PO SCH (09:07)
--- NOTE | 2021-01-09 09:26 | Speech Therapy Daily Note ---
Speech Daily Progress Note Subjective Date Seen by Provider: Jan 09, 2021 Time Seen by Provider: 00:30 Patient was sitting in her recliner resting following her PT session. Objective Patient completed safety awareness cards with 85% given minimal cues. Assessment Assessment Current Status: Good Progress Treatment Plan Continue Plan of Care Speech Short Term Goals Short Term Goals Short Term Goals 1) The patient will complete safety awareness tasks related to her daily needs at 80% or greater with minimal cues. 2) The patient will complete memory tasks related to her daily needs at 80% or greater with minimal cues. 3) The patient will complete problem solving tasks related to her daily needs at 80% or greater with minimal cues. Speech Technical Analyst Goals Care Home Goals Patient will improve cognitive communication abilities in order to return home safely with decreased assistance. Speech-Plan Patient/Family Goals Patient/Family Goals: Patient plans on returning to her home where she lives alone. Treatment Plan Speech Therapy Treatment Plan: Continue Plan of Care Treatment Duration: Jan 19, 2021 Frequency: 4 times per week (Patient will receive skilled ST 4-5x per week) Estimated Hrs Per Day: .5 hour per day Rehab Potential: Fair Barriers to Learning: Patient's recent CVA debility, cognitive deficits Pt/Family Agrees to Plan: Yes Safety Risks/Education Teaching Recipient: Patient Teaching Methods: Demonstration, Discussion Response to Teaching: Verbalize Understanding, Return Demonstration Education Topics Provided: Continued safety within her room, communication of wants/needs Time Speech Therapy Time In: 09:00 Speech Therapy Time Out: 09:30 Total Billed Time: 30 Billed Treatment Time 1, SLMICHAEL Harley Jan 09, 2021 09:26
[2021-01-09] MEDS ORDERED: polyethylene glycoL POWDER 17 GM (MIRALAX) PACK PO PRN (11:15)
[2021-01-09] MEDS ORDERED: SENNA W/DOCUSATE (SENOKOT S) TABLET PO PRN (11:15)
[2021-01-09] MEDS: DICLOFENAC 1% GEL 100 GM (VOLTAREN) TUBE TOP PRN (13:41)
--- NOTE | 2021-01-09 14:22 | Occupational Ther Daily Note ---
OT Current Status-Daily Note Subjective No pain reported. Appearance Pt. up in chair. Agrees to work with OT. Mental Status/Objective Patient Orientation: Person, Place ADL-Treatment Therapy Code Descriptions/Definitions Functional [place] Measure: 0=Not Assessed/NA 4=Minimal Assistance 1=Total Assistance 5=Supervision or Setup 2=Maximal Assistance 6=Modified [place] 3=Moderate Assistance 7=Complete IndependenceSCALE: Activities may be completed with or without assistive devices. 6-Kumktzrxad-bynukri completes the activity by him/herself with no assistance from a helper. 5-Set-up or Clean-up Assistance-helper sets up or cleans up; patient completes activity. [place] assists only prior to or following the activity. 4-Supervision or Touching Assistance-helper provides verbal cues and/or touching/steadying and/or contact guard assistance as patient completes activity. Assistance may be provided throughout the activity or intermittently. 3-Partial/Moderate Assistance-helper does LESS THAN HALF the effort. [place] lifts, holds or supports trunk or limbs, but provides less than half the effort. 2-Substantial/Maximal Assistance-helper does MORE THAN HALF the effort. [place] lifts or holds trunk or limbs and provides more than half the effort. 0-Jlkvexgzk-hvynpq does ALL the effort. Patient does none of the effort to complete the activity. Or, the assistance of 2 or more helpers is required for the patient to complete the activity. If activity was not attempted, code reason: 7-Patient Refused. 9-Not Applicable-not attempted and the patient did not perform the activity before the current illness, exacerbation or injury. 10-Not Attempted due to Environmental Limitations-(lack of equipment, weather restraints, etc.). 88-Not Attempted due to Medical Conditions or Safety Concerns. Upper Body Dressing (QC): 3 (Min assist and cues. Pt. has difficulty in beginning of task configuring neck hole and arm hole of shirt, front and back. ) Lower Body Dressing (QC): 3 (Min assist to don pants over feet with safety.) On/Off Footwear: 4 Toileting Hygiene (QC): 4 Toilet Transfer (QC): 4 Other Treatment Pt. up in chair. Agrees to get dressed this date. OT places pt's bag on her lap so that she can pick out clothing. Pt. able to dress with cues and min assist at times. Ambulated to therapy dining area. Pt. educated on kitchen safety and walker basket. Pt. given cognitive/sequencing/memory/executive functioning task in kitchen to complete. OT gave pt. sheet with 3 steps on it. To make cup of water, small snack with peanut butter and crackers, and to get soda out of refridgerator. Goal was for pt. to read the steps, follow sequentially, and to demonstrate safe techniques with walker when maneuvering in kitchen, and retrieving items from high and low cabinets. Pt. required cues to keep walker either close to her, or to put to side and use counter for stability. She also required cues to angle it in a way that she could get each drawer open. Otherwise, she was able to follow the steps on the paper and re- read when needed. Pt. states that she has hired someone to be with her at home, and that she will have someone to cook and clean for her, per her family. This will be discussed with social media job titles for safety needs before discharge home. Pt. back in room in chair at end of session. Education OT Patient Education: Correct positioning, Modified ADL techniques, Progress toward Goal/Update tx plan, Purpose of tx/functional activities, Reviewed precautions, Rehab process, Transfer techniques Teaching Recipient: Patient Teaching Methods: Demonstration, Discussion Response to Teaching: Verbalize Understanding, Return Demonstration OT Short Term Goals Short Term Goals Time Frame: Jan 12, 2021 Upper body dressin Lower body dressin Putting on/taking off footwear: 5 OT Fpc Goals Sr. Payroll Manager Goals Time Frame: Jan 26, 2021 Eating (QC): 6 Oral Hygiene (QC): 6 Toileting Hygiene (QC): 6 Shower/Bathe Self (QC): 6 Upper Body Dressing (QC): 6 Lower Body Dressing (QC): 6 On/Off Footwear (QC): 6 1=Demonstrate adherence to instructed precautions during ADL tasks. 2=Patient will verbalize/demonstrate understanding of assistive devices/modifications for ADL. 3=Patient will improve strength/tolerance for activity to enable patient to perform ADL's. OT Education/Plan Problem List/Assessment Assessment: Decreased Activ Tolerance, Impaired I ADL's, Impaired Self-Care Skills Discharge Recommendations Plan/Recommendations: Continue POC Therapy Discharge Recommendati: Post Acute OT Treatment Plan/Plan of Care Treatment,Training & Education: Yes Patient would benefit from OT for education, treatment and training to promote independence in ADL's, mobility, safety and/or upper extremity function for ADL's. Plan of Care: ADL Retraining, Functional Mobility, Group Exercise/Act as Ind, UE Funct Exercise/Act Treatment Duration: Jan 26, 2021 Frequency: At least 5 of 7 days/Wk (IRF) Estimated Hrs Per Day: 1.5 hours per day Agreement: Yes Rehab Potential: Fair Time/GCodes Start Time: 09:45 Stop Time: 10:45 Total Time Billed (hr/min): 60 Billed Treatment Time 1, ADL x 45minutes, Ex x 15minutes KELECHI PARK OT Jan 09, 2021 14:22
--- NOTE | 2021-01-09 14:37 | Occupational Ther Daily Note ---
OT Current Status-Daily Note Subjective Pt. up in chair. Agrees to work with OT. ADL-Treatment Therapy Code Descriptions/Definitions Functional [place] Measure: 0=Not Assessed/NA 4=Minimal Assistance 1=Total Assistance 5=Supervision or Setup 2=Maximal Assistance 6=Modified [place] 3=Moderate Assistance 7=Complete IndependenceSCALE: Activities may be completed with or without assistive devices. 1-Sgvghtnyac-qdkoqsi completes the activity by him/herself with no assistance from a helper. 5-Set-up or Clean-up Assistance-helper sets up or cleans up; patient completes activity. [place] assists only prior to or following the activity. 4-Supervision or Touching Assistance-helper provides verbal cues and/or touching/steadying and/or contact guard assistance as patient completes activity. Assistance may be provided throughout the activity or intermittently. 3-Partial/Moderate Assistance-helper does LESS THAN HALF the effort. [place] lifts, holds or supports trunk or limbs, but provides less than half the effort. 2-Substantial/Maximal Assistance-helper does MORE THAN HALF the effort. [place] lifts or holds trunk or limbs and provides more than half the effort. 9-Rnhfsxzbc-lylxig does ALL the effort. Patient does none of the effort to complete the activity. Or, the assistance of 2 or more helpers is required for the patient to complete the activity. If activity was not attempted, code reason: 7-Patient Refused. 9-Not Applicable-not attempted and the patient did not perform the activity before the current illness, exacerbation or injury. 10-Not Attempted due to Environmental Limitations-(lack of equipment, weather restraints, etc.). 88-Not Attempted due to Medical Conditions or Safety Concerns. Other Treatment Pt. agrees to take walk with OT to continue working on overall endurance for functional tasks/ADL activities. Pt. ambulated with walker with SBA, approximately 300 feet. Increased time needed and at times, cues for walker safety, such as keeping it close to her and attending to left side when hitting walker on doorway frames. Appropriate endurance noted overall. Ambulated back to room. Transferred to chair. Alarm set. All needs met. Education OT Patient Education: Correct positioning, Progress toward Goal/Update tx plan, Purpose of tx/functional activities, Reviewed precautions, Rehab process, Transfer techniques Response to Teaching: Verbalize Understanding, Return Demonstration, Reinforcement Needed OT Short Term Goals Short Term Goals Time Frame: Jan 12, 2021 Upper body dressin Lower body dressin Putting on/taking off footwear: 5 OT Catering Coordinator Goals Prison Goals Time Frame: Jan 26, 2021 Eating (QC): 6 Oral Hygiene (QC): 6 Toileting Hygiene (QC): 6 Shower/Bathe Self (QC): 6 Upper Body Dressing (QC): 6 Lower Body Dressing (QC): 6 On/Off Footwear (QC): 6 1=Demonstrate adherence to instructed precautions during ADL tasks. 2=Patient will verbalize/demonstrate understanding of assistive devices/modifications for ADL. 3=Patient will improve strength/tolerance for activity to enable patient to perform ADL's. OT Education/Plan Discharge Recommendations Plan/Recommendations: Continue POC Treatment Plan/Plan of Care Treatment,Training & Education: Yes Patient would benefit from OT for education, treatment and training to promote independence in ADL's, mobility, safety and/or upper extremity function for ADL's. Plan of Care: ADL Retraining, Functional Mobility, Group Exercise/Act as Ind, UE Funct Exercise/Act Treatment Duration: Jan 26, 2021 Frequency: At least 5 of 7 days/Wk (IRF) Estimated Hrs Per Day: 1.5 hours per day Agreement: Yes Rehab Potential: Fair Time/GCodes Start Time: 13:05 Stop Time: 13:23 Total Time Billed (hr/min): 18 Billed Treatment Time 1, KELECHI WARNER OT Jan 09, 2021 14:37
--- NOTE | 2021-01-09 19:11 | Progress Note ---
Subjective Date Seen by a Provider: Jan 09, 2021 Time Seen by a Provider: 12:30 Subjective/Events-last exam Fwup right sided MCA infarct, HTN, COPD, Renal Insufficiency. Sitting up in chair eating lunch. Nursing reports still problems with sequencing and impulse control. Objective Exam Vital Signs Date Time Temp Pulse Resp B/P (MAP) Pulse Ox O2 Delivery O2 Flow Rate FiO2 01/09/21 09:09 Room Air 01/09/21 07:22 36.0 61 14 167/71 (103) 96 Room Air 01/08/21 21:00 Room Air 01/08/21 20:00 36.6 60 16 151/63 (92) 99 Capillary Refill : General Appearance: No Apparent Distress Respiratory: Lungs Clear Cardiovascular: Regular Rate, Rhythm Gastrointestinal: normal bowel sounds, non tender, soft Extremity: Non Tender, No Calf Tenderness, No Pedal Edema Neurologic/Psychiatric: Alert, Oriented x3 Assessment/Plan Assessment/Plan Assess & Plan/Chief Complaint 1. Right MCA Infarct--OT/PT and ST, on aspirin/plavix 2. HTN--stable 3. COPD--stable 4. Chronic Renal Insuff--will monitor BUN/Cr 5. Low Back Pain--add routine tylenol Clinical Quality Measures Admission Status Admission Dx 1. Recent Right Sided MCA infarct with resulting slurred speech, left sided neglect and decline in ADLs--admitted to rehab for PT/OT/ST, on plavix/aspirin and atorvastatin 2. Hypertension--on amlodopine, atenolol, valsartan, and HCTZ--will monitor BP and adjust meds as needed during rehab stay 3. COPD with tobacco abuse--patient at high risk for relapsing to tobacco use on discharge 4. Chronic Renal Insufficiency--updated lab to see new baseline 5. Gout--allopurinol restarted 6. C1-C2 fracture--no complaints of cervical pain, determined not to be acute 7. Generalized osteoarthritis--tylenol prn and tramadol for severe pain LOW IBRAHIM DO Jan 09, 2021 19:11
[2021-01-09] MEDS ORDERED: ACETAMINOPHEN 500 MG TAB (TYLENOL) PO PRN (19:15)
[2021-01-09 20:00] VITALS: BP 145/70
[2021-01-09] MEDS: MONTELUKAST 10 MG (SINGULAIR) TAB PO SCH (21:01)
[2021-01-10] MEDS: KCL 10 MEQ TAB (MICRO K) PO SCH (05:22)
[2021-01-10 07:14] VITALS: BP 162/74
[2021-01-10] MEDS: ATENOLOL 50 MG (TENORMIN) TAB PO SCH ×2 (08:18→21:25)
[2021-01-10] MEDS: amLODIPine 5 MG (NORVASC) TAB PO SCH ×2 (08:18→21:25)
[2021-01-10] MEDS: ASPIRIN E.C. 81 MG (ECOTRIN) TAB PO SCH (08:18)
[2021-01-10] MEDS: LORATADINE (CLARITIN) 10 MG TAB PO SCH (08:18)
[2021-01-10] MEDS: CLOPIDOGREL 75 MG (PLAVIX) TABLET PO SCH (08:18)
[2021-01-10] MEDS: ALLOPURINOL 100 MG (ZYLOPRIM) TAB PO SCH (08:19)
[2021-01-10] MEDS: VALSARTAN 160 MG (DIOVAN) TABLET PO SCH (08:19)
[2021-01-10] MEDS: FLUOROMETHOLONE 0.1% OU SCH (08:22)
--- NOTE | 2021-01-10 09:00 | Speech Therapy Daily Note ---
Speech Daily Progress Note Subjective Date Seen by Provider: Jan 10, 2021 Time Seen by Provider: 00:30 Patient was resting in her recliner, alert and talkative. Objective Patient completed memory tasks for recall at 5 minutes: 80%, 15 minutes: 70% with 10% verbal cues. Assessment Assessment Current Status: Good Progress Treatment Plan Continue Plan of Care Speech Short Term Goals Short Term Goals Short Term Goals 1) The patient will complete safety awareness tasks related to her daily needs at 80% or greater with minimal cues. 2) The patient will complete memory tasks related to her daily needs at 80% or greater with minimal cues. 3) The patient will complete problem solving tasks related to her daily needs at 80% or greater with minimal cues. Speech Penitentiary Goals Penitentiary Goals Patient will improve cognitive communication abilities in order to return home safely with decreased assistance. Speech-Plan Patient/Family Goals Patient/Family Goals: Patient plans on returning home where she lives alone. Treatment Plan Speech Therapy Treatment Plan: Continue Plan of Care Treatment Duration: Jan 19, 2021 Frequency: 4 times per week (Patient will receive skilled ST 4-5x per week) Estimated Hrs Per Day: .5 hour per day Rehab Potential: Fair Barriers to Learning: Patient's cognitive deficits, CVA Pt/Family Agrees to Plan: Yes Safety Risks/Education Teaching Recipient: Patient Teaching Methods: Demonstration, Discussion Response to Teaching: Verbalize Understanding, Return Demonstration Education Topics Provided: Continued safety within her room, communication of wants/needs Time Speech Therapy Time In: 08:30 Speech Therapy Time Out: 09:00 Total Billed Time: 30 Billed Treatment Time 1, MICHAEL Chin Jan 10, 2021 09:00
--- NOTE | 2021-01-10 10:01 | Physical Therapy Daily Note ---
PT Daily Note-Current Subjective Pt in BR upon arrival. Pt agrees to PT. Transfers SCALE: Activities may be completed with or without assistive devices. 2-Sijzlgewyn-bjdgjcb completes the activity by him/herself with no assistance from a helper. 5-Set-up or Clean-up Assistance-helper sets up or cleans up; patient completes activity. [place] assists only prior to or following the activity. 4-Supervision or Touching Assistance-helper provides verbal cues and/or touching/steadying and/or contact guard assistance as patient completes activity. Assistance may be provided throughout the activity or intermittently. 3-Partial/Moderate Assistance-helper does LESS THAN HALF the effort. [place] lifts, holds or supports trunk or limbs, but provides less than half the effort. 2-Substantial/Maximal Assistance-helper does MORE THAN HALF the effort. [place] lifts or holds trunk or limbs and provides more than half the effort. 7-Aszdgczhh-wiykky does ALL the effort. Patient does none of the effort to complete the activity. Or, the assistance of 2 or more helpers is required for the patient to complete the activity. If activity was not attempted, code reason: 7-Patient Refused. 9-Not Applicable-not attempted and the patient did not perform the activity before the current illness, exacerbation or injury. 10-Not Attempted due to Environmental Limitations-(lack of equipment, weather restraints, etc.). 88-Not Attempted due to Medical Conditions or Safety Concerns. Sit to Stand (QC): 5 Toilet Transfer (QC): 5 Weight Bearing Full Weight Bearing Full Weight Bearing Gait Training Does the Patient Walk?: Yes Distance: 450', 100' Walk 10 feet (QC): 5 Walk 50 ft with 2 Turns(QC): 5 Walk 150 ft (QC): 5 Gait Persons Needed: 1 Gait Assistive Device: FWW Wheelchair Training Does the Pt Use a Wheelchair?: No Exercises Seated Therapy Exercises: Ankle pumps, Long arc quads, Hip flexion, Glut set Seated Reps: 15 Treatments Finishes using BR then takes short RB. Pt amb. in hallway, taking 1 standing RB as needed. Pt amb. back to Therapy Gym and completes Seated Ex. After short RB, pt returns to room to rest with all needs met, call light in hand. Assessment Current Status: Good Progress Pt fatigues and needs occasional RB as needed. PT Short Term Goals Short Term Goals Time Frame: Jan 12, 2021 Roll Left & Right: 6 Sit to lyin Lying to sitting on side of be: 6 Sit to stand: 4 Chair/exm-ty-svyur transfer: 4 Walk 10 feet: 4 Walk 50 feet with two turns: 4 Walk 150 feet: 4 PT Senior Care Goals Motor Vehicle Light Assembler Goals PT Senior Care Goals Time Frame: Jan 26, 2021 Roll Left & Right (QC): 6 Sit to Lying (QC): 6 Lying-Sitting on Side/Bed(QC): 6 Sit to Stand (QC): 4 (SBA) Chair/Xkv-xn-Pvlub Xfer(QC): 4 (SBA) Toilet Transfer (QC): 4 (SBA) Car Transfer (QC): 4 (SBA) Does the Patient Walk: Yes Walk 10 feet (QC): 4 (SBA) Walk 50ft with 2 Turns (QC): 4 (SBA) Walk 150 ft (QC): 4 (SBA) Walking 10ft on Uneven Surface: 4 (SBA) 1 Step (curb) (QC): 4 (SBA) 4 Steps (QC): 4 (SBA) 12 Steps (QC): 88 Picking up an Object (QC): 4 Wheel 50 feet with 2 turns (QC: 9 Wheel 150 feet: 9 PT Plan Problem List Problem List: Activity Tolerance Treatment/Plan Treatment Plan: Continue Plan of Care Treatment Plan: Bed Mobility, Education, Functional Activity Anish, Functional Strength, Group Therapy, Gait, Safety, Therapeutic Exercise, Transfers Treatment Duration: Jan 26, 2021 Frequency: At least 5 of 7 days/Wk (IRF) Estimated Hrs Per Day: 1.5 hours per day Patient and/or Family Agrees t: Yes Safety Risks/Education Patient Education: Gait Training, Correct Positioning, Safety Issues Teaching Recipient: Patient Teaching Methods: Discussion Response to Teaching: Verbalize Understanding Time/GCodes Time In: 900 Time Out: 945 Total Billed Treatment Time: 45 Total Billed Treatment 1, GT x2 (25m) & EX (20m) MI YEH SAND BOBBER Jan 10, 2021 10:01
--- NOTE | 2021-01-10 13:17 | Occupational Ther Daily Note ---
OT Current Status-Daily Note Subjective Pt. reports pain in lower back but does not report pain level. Pt. up in chair with K-pad on after treatment. Reports comfort with this. Mental Status/Objective Patient Orientation: Person, Place ADL-Treatment Therapy Code Descriptions/Definitions Functional [place] Measure: 0=Not Assessed/NA 4=Minimal Assistance 1=Total Assistance 5=Supervision or Setup 2=Maximal Assistance 6=Modified [place] 3=Moderate Assistance 7=Complete IndependenceSCALE: Activities may be completed with or without assistive devices. 9-Tpoiuvcogv-mxpvzpg completes the activity by him/herself with no assistance from a helper. 5-Set-up or Clean-up Assistance-helper sets up or cleans up; patient completes activity. [place] assists only prior to or following the activity. 4-Supervision or Touching Assistance-helper provides verbal cues and/or touching/steadying and/or contact guard assistance as patient completes activity. Assistance may be provided throughout the activity or intermittently. 3-Partial/Moderate Assistance-helper does LESS THAN HALF the effort. [place] lifts, holds or supports trunk or limbs, but provides less than half the effort. 2-Substantial/Maximal Assistance-helper does MORE THAN HALF the effort. [place] lifts or holds trunk or limbs and provides more than half the effort. 8-Xvbfagznj-ejqgde does ALL the effort. Patient does none of the effort to complete the activity. Or, the assistance of 2 or more helpers is required for the patient to complete the activity. If activity was not attempted, code reason: 7-Patient Refused. 9-Not Applicable-not attempted and the patient did not perform the activity before the current illness, exacerbation or injury. 10-Not Attempted due to Environmental Limitations-(lack of equipment, weather restraints, etc.). 88-Not Attempted due to Medical Conditions or Safety Concerns. Eating (QC): 6 Oral Hygiene (QC): 5 Shower/Bathe Self (QC): 4 (SBA and cues in shower for safety. Cues for sequencing.) Upper Body Dressing (QC): 4 (SBA with max cues to don shirt correctly. Pt. attempted to don head through arm holes, and don shirt inside out. Cues for sequencing and correction. Pt. upset that shirt was not the "correct" shirt.) Lower Body Dressing (QC): 4 (Max cues for sequencing, and CGA in stance to don brief and pants over hips. Pt. donned brief backward and with both legs through one hole. She attempted to pull up over hips. Pt. not aware that this was incorrect and needed cues to doff and start over.) On/Off Footwear: 5 (Set up with slipper socks.) Toileting Hygiene (QC): 4 Toilet Transfer (QC): 4 Other Treatment After ADLs, pt. agrees to ambulate with OT. Utilized walker and required CGA/SBA for safety. Cues for walker correction in hallway. Noted pt. required increased time. Would become easily distracted and would just stop in hallway to tell story. Cues for continuing ambulation and remembering what she was doing. Ambulated approximately 400 feet with rest break. Ambulated back to gym and tolerated 9.5 minutes on arm bike at min resistance, with cues to continue activity. Pt. would stop activity and tell story. Ambulated back to room and made comfortable in chair. Chair alarm set. All needs met. Education OT Patient Education: Correct positioning, Exercise program, Modified ADL techniques, Progress toward Goal/Update tx plan, Purpose of tx/functional activities, Reviewed precautions, Rehab process, Transfer techniques Teaching Recipient: Patient Teaching Methods: Demonstration, Discussion Response to Teaching: Verbalize Understanding, Return Demonstration, Reinforcement Needed OT Short Term Goals Short Term Goals Time Frame: Jan 12, 2021 Upper body dressin Lower body dressin Putting on/taking off footwear: 5 OT Snf Goals Ream Cutter Goals Time Frame: Jan 26, 2021 Eating (QC): 6 Oral Hygiene (QC): 6 Toileting Hygiene (QC): 6 Shower/Bathe Self (QC): 6 Upper Body Dressing (QC): 6 Lower Body Dressing (QC): 6 On/Off Footwear (QC): 6 1=Demonstrate adherence to instructed precautions during ADL tasks. 2=Patient will verbalize/demonstrate understanding of assistive devices/modifications for ADL. 3=Patient will improve strength/tolerance for activity to enable patient to perform ADL's. OT Education/Plan Problem List/Assessment Assessment: Decreased Activ Tolerance, Decreased Safety Aware, Impaired Cognition, Impaired I ADL's, Impaired Self-Care Skills Discharge Recommendations Plan/Recommendations: Continue POC Therapy Discharge Recommendati: Post Acute OT Treatment Plan/Plan of Care Treatment,Training & Education: Yes Patient would benefit from OT for education, treatment and training to promote independence in ADL's, mobility, safety and/or upper extremity function for ADL's. Plan of Care: ADL Retraining, Functional Mobility, Group Exercise/Act as Ind, UE Funct Exercise/Act Treatment Duration: Jan 26, 2021 Frequency: At least 5 of 7 days/Wk (IRF) Estimated Hrs Per Day: 1.5 hours per day Agreement: Yes Rehab Potential: Fair Time/GCodes Start Time: 10:00 Stop Time: 11:15 Total Time Billed (hr/min): 75 Billed Treatment Time 1, ADL x 45minutes, Ex x 30minutes KELECHI PARK OT Jan 10, 2021 13:17
--- NOTE | 2021-01-10 14:35 | Physical Therapy Daily Note ---
PT Daily Note-Current Subjective Pt sitting in recliner upon arrival. Pt agrees to PT for QC scoring for anticipated d/c on Friday. Pain Numeric Pain Scale: 3 Location: Lower Location Body Site: Back Pain Description: Ache Mental Status Patient Orientation: Person, Confused, Place Transfers SCALE: Activities may be completed with or without assistive devices. 8-Fhjwjnsyre-yfonwct completes the activity by him/herself with no assistance from a helper. 5-Set-up or Clean-up Assistance-helper sets up or cleans up; patient completes activity. [place] assists only prior to or following the activity. 4-Supervision or Touching Assistance-helper provides verbal cues and/or touching/steadying and/or contact guard assistance as patient completes activity. Assistance may be provided throughout the activity or intermittently. 3-Partial/Moderate Assistance-helper does LESS THAN HALF the effort. [place] lifts, holds or supports trunk or limbs, but provides less than half the effort. 2-Substantial/Maximal Assistance-helper does MORE THAN HALF the effort. [place] lifts or holds trunk or limbs and provides more than half the effort. 2-Nntkuftzq-ydjnoa does ALL the effort. Patient does none of the effort to complete the activity. Or, the assistance of 2 or more helpers is required for the patient to complete the activity. If activity was not attempted, code reason: 7-Patient Refused. 9-Not Applicable-not attempted and the patient did not perform the activity before the current illness, exacerbation or injury. 10-Not Attempted due to Environmental Limitations-(lack of equipment, weather restraints, etc.). 88-Not Attempted due to Medical Conditions or Safety Concerns. Roll Left & Right (QC): 6 Sit to Lying (QC): 6 Lying to Sitting/Side of Bed(Q: 6 Sit to Stand (QC): 6 Chair/Pnb-tl-Txscc Xfer(QC): 6 Toilet Transfer (QC): 6 Car Transfer (QC): 6 Weight Bearing Full Weight Bearing Full Weight Bearing Gait Training Does the Patient Walk?: Yes Distance: 150' Walk 10 feet (QC): 6 Walk 50 ft with 2 Turns(QC): 5 Walk 150 ft (QC): 5 Walking 10ft/uneven surface-QC: 5 Gait Persons Needed: 1 Gait Assistive Device: FWW Wheelchair Training Does the Pt Use a Wheelchair?: No Stair Training Stair Training: Handrails/: uses walker #of Steps: 1 1 Step (curb) (QC): 5 4 Steps (QC): 7 12 Steps (QC): 7 Stairs: Pattern: Step to Balance Picking up an Object (QC): 7 Special Test Comments 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 Treatments Pt completes QC scoring items listed above. Pt and family concerned when leaving and had questions regarding HH Therapy, help for home, BM & UTI status as well as safety for home. Discussed with pt & family and asked for assistance from Nurse on health questions as well as SW to answer questions as well. Both pt & family felt better after tx and discussion. Pt resting in recliner with all needs met, call light in hand. Assessment Current Status: Good Progress Pt still has moments of confusion but is becoming more aware of them. Frustration with not feeling better. PT Short Term Goals Short Term Goals Time Frame: Jan 12, 2021 Roll Left & Right: 6 Sit to lyin Lying to sitting on side of be: 6 Sit to stand: 4 Chair/nwb-oq-olbja transfer: 4 Walk 10 feet: 4 Walk 50 feet with two turns: 4 Walk 150 feet: 4 PT Under Ground Miner Goals Under Ground Miner Goals PT Under Ground Miner Goals Time Frame: Jan 26, 2021 Roll Left & Right (QC): 6 Sit to Lying (QC): 6 Lying-Sitting on Side/Bed(QC): 6 Sit to Stand (QC): 4 (SBA) Chair/Lzw-gs-Jxtpi Xfer(QC): 4 (SBA) Toilet Transfer (QC): 4 (SBA) Car Transfer (QC): 4 (SBA) Does the Patient Walk: Yes Walk 10 feet (QC): 4 (SBA) Walk 50ft with 2 Turns (QC): 4 (SBA) Walk 150 ft (QC): 4 (SBA) Walking 10ft on Uneven Surface: 4 (SBA) 1 Step (curb) (QC): 4 (SBA) 4 Steps (QC): 4 (SBA) 12 Steps (QC): 88 Picking up an Object (QC): 4 Wheel 50 feet with 2 turns (QC: 9 Wheel 150 feet: 9 PT Plan Problem List Problem List: Activity Tolerance, Safety Treatment/Plan Treatment Plan: Continue Plan of Care Treatment Plan: Bed Mobility, Education, Functional Activity Anish, Functional Strength, Group Therapy, Gait, Safety, Therapeutic Exercise, Transfers Treatment Duration: Jan 26, 2021 Frequency: At least 5 of 7 days/Wk (IRF) Estimated Hrs Per Day: 1.5 hours per day Patient and/or Family Agrees t: Yes Safety Risks/Education Patient Education: Steps, Correct Positioning, Safety Issues Teaching Recipient: Patient Teaching Methods: Discussion Response to Teaching: Verbalize Understanding, Reinforcement Needed Time/GCodes Time In: 1325 Time Out: 1410 Total Billed Treatment Time: 45 Total Billed Treatment 1, FA x3 (45m) MI YEH ASSURANCE SPECIALIST Jan 10, 2021 14:35
[2021-01-10 20:03] VITALS: BP 126/63
--- NOTE | 2021-01-10 20:48 | PM&R Progress Note ---
Subjective HPI/CC On Admission Date Seen by Provider: Jan 10, 2021 Time Seen by Provider: 10:30 Subjective/Events-last exam 01/10/21: Pt confused Family at the bedside Insisting on going home They have a nurse to help her She feels like she is losing her mind and everything will be okay once she gets home Very difficult situation With her confusion she really needs to go to assisted living or residential 01/09/2021: Pt doing a little better Memory is better Days and nights are now back on track Loose stools so will change laxatives to prn 01/08/2021: Pt doing a lot better Nicotine patch was requested Creatinine 1.95 Bowels are moving Requires redirection with dates and times Back pain is managed with Tylenol, Ultram, Heating pad and Diclofenac gel Remains on a bed alarm and a chair alarm 01/07/2021: Confusion is improved Slept pretty well last night No falls but increased risk Bed and chair alarms in place No pain is reported 01/06/2021: Patient doing very well No major pain is reported Check meds and labs Patient slept on and off last night Had some confusion last night Converses a lot Review of Systems General: Fatigue, Malaise Neurological: Weakness, Incoordination, Confusion Objective Exam Vital Signs Vital Signs Date Time Temp Pulse Resp B/P (MAP) Pulse Ox O2 Delivery O2 Flow Rate FiO2 01/10/21 20:03 36.0 71 14 126/63 (84) 96 Room Air Capillary Refill : General Appearance: No Apparent Distress, Anxious, Chronically ill HEENT: PERRL/EOMI, Normal ENT Inspection, Pharynx Normal, Other (left subconjunctival hemorrhage) Neck: Full Range of Motion, Normal Inspection, Non Tender, Supple Respiratory: Lungs Clear, No Accessory Muscle Use, No Respiratory Distress, Decreased Breath Sounds Cardiovascular: Regular Rate, Rhythm, Systolic Murmur, Gallop/S4 Gastrointestinal: Normal Bowel Sounds, No Organomegaly, No Pulsatile Mass, Non Tender, Soft Rectal: Deferred Back: No CVA Tenderness Extremity: Non Tender, No Calf Tenderness, Pedal Edema (1) Neurologic/Psychiatric: Alert, Oriented x3, Depressed Affect, Facial Droop (right), Other (slurred speech--mild) Skin: Warm/Dry, Ecchymosis (forearms) Results/Procedures Lab Patient resulted labs reviewed. FIM Transfers Therapy Code Descriptions/Definitions Functional [place] Measure: 0=Not Assessed/NA 4=Minimal Assistance 1=Total Assistance 5=Supervision or Setup 2=Maximal Assistance 6=Modified [place] 3=Moderate Assistance 7=Complete IndependenceSCALE: Activities may be completed with or without assistive devices. 4-Sndrkmqtrk-tccjcvd completes the activity by him/herself with no assistance fr om a helper. 5-Set-up or Clean-up Assistance-helper sets up or cleans up; patient completes activity. [place] assists only prior to or following the activity. 4-Supervision or Touching Assistance-helper provides verbal cues and/or touching/steadying and/or contact guard assistance as patient completes activity. Assistance may be provided throughout the activity or intermittently. 3-Partial/Moderate Assistance-helper does LESS THAN HALF the effort. [place] lifts, holds or supports trunk or limbs, but provides less than half the effort. 2-Substantial/Maximal Assistance-helper does MORE THAN HALF the effort. [place] lifts or holds trunk or limbs and provides more than half the effort. 3-Tmrjsgcpn-iyybux does ALL the effort. Patient does none of the effort to complete the activity. Or, the assistance of 2 or more helpers is required for the patient to complete the activity. If activity was not attempted, code reason: 7-Patient Refused. 9-Not Applicable-not attempted and the patient did not perform the activity before the current illness, exacerbation or injury. 10-Not Attempted due to Environmental Limitations-(lack of equipment, weather restraints, etc.). 88-Not Attempted due to Medical Conditions or Safety Concerns. Roll Left to Right (QC): 6 Sit to Lying (QC): 6 Sit to Stand (QC): 6 Chair/Wew-io-Nogfb Xfer(QC): 6 Car Transfer (QC): 6 Gait Training Does the Patient Walk?: Yes Distance: 150' Walk 10 feet (QC): 6 Walk 50 ft with 2 Turns(QC): 5 Walk 150 ft (QC): 5 Walking 10ft/uneven surface-QC: 5 Gait Persons Needed: 1 Gait Assistive Device: FWW Wheelchair Training Does the Pt Use a Wheelchair?: No Distance: 200' Wheel 50 ft with 2 turns (QC): 2 Wheel 150 ft (QC): 2 Stair Training Stair Training: Handrails/: uses walker #of Steps: 1 1 Step (curb) (QC): 5 4 Steps (QC): 7 12 Steps (QC): 7 Stairs: Pattern: Step to Balance Picking up an Object (QC): 7 ADL-Treatment Eating (QC): 6 Oral Hygiene (QC): 5 Shower/Bathe Self (QC): 4 (SBA and cues in shower for safety. Cues for sequencing.) Upper Body Dressing (QC): 4 (SBA with max cues to don shirt correctly. Pt. attempted to don head through arm holes, and don shirt inside out. Cues for sequencing and correction. Pt. upset that shirt was not the "correct" shirt.) Lower Body Dressing (QC): 4 (Max cues for sequencing, and CGA in stance to don brief and pants over hips. Pt. donned brief backward and with both legs through one hole. She attempted to pull up over hips. Pt. 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
[2021-01-10] MEDS ORDERED: POTA10TA6 PO (21:18)
[2021-01-10] MEDS ORDERED: ATOR40TA70 PO (21:18)
[2021-01-10] MEDS ORDERED: CLOP75TA28 PO (21:18)
[2021-01-10] MEDS ORDERED: MONT10TA32 PO (21:18)
[2021-01-10] MEDS ORDERED: ALLO100T PO (21:18)
[2021-01-10] MEDS ORDERED: ALPR.25T PO (21:18)
[2021-01-10] MEDS ORDERED: ASPI-1238 PO (21:18)
[2021-01-10] MEDS ORDERED: TRAM1TAB7 PO (21:18)
[2021-01-10] MEDS ORDERED: ATEN50TA PO (21:18)
[2021-01-10] MEDS ORDERED: CAND1TAB16 PO (21:18)
[2021-01-10] MEDS ORDERED: CETI10TA17 PO (21:18)
[2021-01-10] MEDS ORDERED: AMLO-250 PO (21:18)
--- NOTE | 2021-01-10 21:20 | D/C HH Face to Face Order ---
D/C Face to Face Orders Reconcile Patient Problems Problems Reviewed?: Yes Instructions for Patient Via [facility], Patient Instructions/FollowUp: Dr Langley 1 week Physician to follow Patient: Korin Discharge Diet for Home: No Restrictions Patient Problems: CVA Patient Data-Allergies,Ht & Wt Patient Allergies: Coded Allergies: codeine (Unverified Allergy, Mild, RASH, 09/23/08) Home Health Need/Face to Face Date of Face to Face: Jan 10, 2021 Clinical Findings: Generalized weakness and fatigue, Instability, Muscle weakness, Unsteady gait I have seen Pt afqq-vv-dpam: Yes Discharged To: Home Diagnosis/Conditions: CVA Patient is Homebound due to: CognItive deficits, Charity fall risk due to instabilty, Muscle weakness Homebound Status Due to the above stated illness, injury or surgical procedure (medical condition or diagnosis) and associated clinical findings, the patient is homebound because of his/her inability to leave home except with aid of a supportive device and/or person AND leaving the home requires a considerable and taxing effort or is medically contraindicated. Pt req the following assistanc: Walker Home Health Nursing Orders Home Health Services Order: Nursing Services, Machine Joiner Cementer-Evaluate & Treat, Physical Therapy-Evaluate & Treat Certify Stmt I certify that this patient is under my care and that I, a nurse practitioner or a physician; a commercial escrow assistant working with me, had a face to face encounter that - meets the physician face to face encounter requirements with this patient as dated. MIGEL SANCHEZ DO Jan 10, 2021 21:20
[2021-01-10] MEDS: MONTELUKAST 10 MG (SINGULAIR) TAB PO SCH (21:25)
--- NOTE | 2021-01-11 05:22 | PM&R Progress Note ---
Subjective HPI/CC On Admission Date Seen by Provider: Jan 11, 2021 Time Seen by Provider: 13:00 Subjective/Events-last exam 01/11/2021: Pt doing really well, looking forward to going home tomorrow 1+ edema, refuses libia oleary Had a nightmare about her bed and now she wont sleep in her bed Family at the bedside 01/10/21: Pt confused Family at the bedside Insisting on going home They have a nurse to help her She feels like she is losing her mind and everything will be okay once she gets home Very difficult situation With her confusion she really needs to go to assisted living or long-term 01/09/2021: Pt doing a little better Memory is better Days and nights are now back on track Loose stools so will change laxatives to prn 01/08/2021: Pt doing a lot better Nicotine patch was requested Creatinine 1.95 Bowels are moving Requires redirection with dates and times Back pain is managed with Tylenol, Ultram, Heating pad and Diclofenac gel Remains on a bed alarm and a chair alarm 01/07/2021: Confusion is improved Slept pretty well last night No falls but increased risk Bed and chair alarms in place No pain is reported 01/06/2021: Patient doing very well No major pain is reported Check meds and labs Patient slept on and off last night Had some confusion last night Converses a lot Review of Systems General: Fatigue, Malaise Neurological: Confusion Objective Exam Vital Signs Vital Signs Date Time Temp Pulse Resp B/P (MAP) Pulse Ox O2 Delivery O2 Flow Rate FiO2 01/11/21 20:35 Room Air 01/11/21 20:00 36.3 62 16 149/70 (96) 99 Capillary Refill : General Appearance: No Apparent Distress, Anxious, Chronically ill HEENT: PERRL/EOMI, Normal ENT Inspection, Pharynx Normal, Other (left subconjunctival hemorrhage) Neck: Full Range of Motion, Normal Inspection, Non Tender, Supple Respiratory: Lungs Clear, No Accessory Muscle Use, No Respiratory Distress, Decreased Breath Sounds Cardiovascular: Regular Rate, Rhythm, Systolic Murmur, Gallop/S4 Gastrointestinal: Normal Bowel Sounds, No Organomegaly, No Pulsatile Mass, Non Tender, Soft Rectal: Deferred Back: No CVA Tenderness Extremity: Non Tender, No Calf Tenderness, Pedal Edema (1) Neurologic/Psychiatric: Alert, Oriented x3, Depressed Affect, Facial Droop (right), Other (slurred speech--mild) Skin: Warm/Dry, Ecchymosis (forearms) Results/Procedures Lab Patient resulted labs reviewed. FIM Transfers Therapy Code Descriptions/Definitions Functional [place] Measure: 0=Not Assessed/NA 4=Minimal Assistance 1=Total Assistance 5=Supervision or Setup 2=Maximal Assistance 6=Modified [place] 3=Moderate Assistance 7=Complete IndependenceSCALE: Activities may be completed with or without assistive devices. 3-Qypgebqwuj-tnthcup completes the activity by him/herself with no assistance from a helper. 5-Set-up or Clean-up Assistance-helper sets up or cleans up; patient completes activity. [place] assists only prior to or following the activity. 4-Supervision or Touching Assistance-helper provides verbal cues and/or touching/steadying and/or contact guard assistance as patient completes activity. Assistance may be provided throughout the activity or intermittently. 3-Partial/Moderate Assistance-helper does LESS THAN HALF the effort. [place] lifts, holds or supports trunk or limbs, but provides less than half the effort. 2-Substantial/Maximal Assistance-helper does MORE THAN HALF the effort. [place] lifts or holds trunk or limbs and provides more than half the effort. 9-Svttycxdd-ewlxsp does ALL the effort. Patient does none of the effort to complete the activity. Or, the assistance of 2 or more helpers is required for the patient to complete the activity. If activity was not attempted, code reason: 7-Patient Refused. 9-Not Applicable-not attempted and the patient did not perform the activity before the current illness, exacerbation or injury. 10-Not Attempted due to Environmental Limitations-(lack of equipment, weather restraints, etc.). 88-Not Attempted due to Medical Conditions or Safety Concerns. Roll Left to Right (QC): 6 Sit to Lying (QC): 6 Sit to Stand (QC): 6 Chair/Ndx-yu-Hbveu Xfer(QC): 6 Car Transfer (QC): 6 Gait Training Does the Patient Walk?: Yes Distance: 150' Walk 10 feet (QC): 6 Walk 50 ft with 2 Turns(QC): 5 Walk 150 ft (QC): 5 Walking 10ft/uneven surface-QC: 5 Gait Persons Needed: 1 Gait Assistive Device: FWW Wheelchair Training Does the Pt Use a Wheelchair?: No Distance: 200' Wheel 50 ft with 2 turns (QC): 2 Wheel 150 ft (QC): 2 Stair Training Stair Training: Handrails/: uses walker #of Steps: 1 1 Step (curb) (QC): 5 4 Steps (QC): 7 12 Steps (QC): 7 Stairs: Pattern: Step to Balance Picking up an Object (QC): 7 ADL-Treatment Eating (QC): 6 Oral Hygiene (QC): 5 Shower/Bathe Self (QC): 4 (SBA and cues in shower for safety. Cues for sequencing.) Upper Body Dressing (QC): 4 (SBA with max cues to don shirt correctly. Pt. attempted to don head through arm holes, and don shirt inside out. Cues for sequencing and correction. Pt. upset that shirt was not the "correct" shirt.) Lower Body Dressing (QC): 4 (Max cues for sequencing, and CGA in stance to don brief and pants over hips. Pt. donned brief backward and with both legs through one hole. She attempted to pull up over hips. Pt. 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 Hypertension COPD Recent former smoker Hyperlipidemia Confusion/cognitive deficit Plan: Rehab protocol Monitor blood pressure Fall risk Assistive devices to increase independence 01/06/2021: Supportive care Confusion noted fall risk 01/07/2021: Supportive care Monitor confusion Fall risk 01/08/2021: Nicotine patch Replace potassium Supportive care 01/09/2021: Confusion improved Nicotine patch Supportive care 01/10/21: Cognition deficit noted Supportive care Discharge is planned for Friday01/11/2021: Supportive care Discharge is planned tomorrow (1) CVA (cerebral vascular accident) MIGEL SANCHEZ DO Jan 11, 2021 05:22
[2021-01-11] MEDS: KCL 10 MEQ TAB (MICRO K) PO SCH (06:24)
[2021-01-11 07:09] VITALS: BP 123/60
[2021-01-11] MEDS: VALSARTAN 160 MG (DIOVAN) TABLET PO SCH (08:05)
[2021-01-11] MEDS: ASPIRIN E.C. 81 MG (ECOTRIN) TAB PO SCH (08:06)
[2021-01-11] MEDS: amLODIPine 5 MG (NORVASC) TAB PO SCH ×2 (08:06→20:10)
[2021-01-11] MEDS: LORATADINE (CLARITIN) 10 MG TAB PO SCH (08:06)
[2021-01-11] MEDS: ALLOPURINOL 100 MG (ZYLOPRIM) TAB PO SCH (08:06)
[2021-01-11] MEDS: ATENOLOL 50 MG (TENORMIN) TAB PO SCH ×2 (08:06→20:10)
[2021-01-11] MEDS: CLOPIDOGREL 75 MG (PLAVIX) TABLET PO SCH (08:06)
[2021-01-11] MEDS: FLUOROMETHOLONE 0.1% OU SCH (08:08)
[2021-01-11] MEDS: ACETAMINOPHEN 325 MG TABLET PO PRN ×2 (08:13→20:10)
--- NOTE | 2021-01-11 08:40 | Progress Note ---
Subjective Date Seen by a Provider: Jan 11, 2021 Time Seen by a Provider: 08:38 Subjective/Events-last exam Fwup right sided MCA infarct, HTN, COPD, Renal Insufficiency. In gym working with therapy. Plan is DC home today with 24hr care. Objective Exam Vital Signs Date Time Temp Pulse Resp B/P (MAP) Pulse Ox O2 Delivery O2 Flow Rate FiO2 01/11/21 07:09 36.4 65 14 123/60 (81) 95 Room Air 01/10/21 21:00 Room Air 01/10/21 20:03 36.0 71 14 126/63 (84) 96 Room Air 01/10/21 09:00 Room Air Capillary Refill : General Appearance: No Apparent Distress Neurologic/Psychiatric: Alert, Oriented x3, Normal Mood/Affect Assessment/Plan Assessment/Plan Assess & Plan/Chief Complaint 1. Right MCA Infarct--home today with 24hr care and home health with nursing OT/PT and ST, on aspirin/plavix 2. HTN--stable 3. COPD--stable 4. Chronic Renal Insuff--stable 5. Low Back Pain--stable Clinical Quality Measures Admission Status Admission Dx 1. Recent Right Sided MCA infarct with resulting slurred speech, left sided neglect and decline in ADLs--admitted to rehab for PT/OT/ST, on plavix/aspirin and atorvastatin 2. Hypertension--on amlodopine, atenolol, valsartan, and HCTZ--will monitor BP and adjust meds as needed during rehab stay 3. COPD with tobacco abuse--patient at high risk for relapsing to tobacco use on discharge 4. Chronic Renal Insufficiency--updated lab to see new baseline 5. Gout--allopurinol restarted 6. C1-C2 fracture--no complaints of cervical pain, determined not to be acute 7. Generalized osteoarthritis--tylenol prn and tramadol for severe pain LOW IBRAHIM DO Jan 11, 2021 08:40
--- NOTE | 2021-01-11 09:23 | Physical Therapy Daily Note ---
PT Daily Note-Current Subjective Pt sitting in recliner taking morning meds upon arrival. Pt agrees to PT. Pain Numeric Pain Scale: 4 Location: Lower Location Body Site: Back Pain Description: Ache Mental Status Patient Orientation: Person, Confused, Place Transfers SCALE: Activities may be completed with or without assistive devices. 0-Vwbjxpoods-lqdausn completes the activity by him/herself with no assistance from a helper. 5-Set-up or Clean-up Assistance-helper sets up or cleans up; patient completes activity. [place] assists only prior to or following the activity. 4-Supervision or Touching Assistance-helper provides verbal cues and/or touching/steadying and/or contact guard assistance as patient completes activity. Assistance may be provided throughout the activity or intermittently. 3-Partial/Moderate Assistance-helper does LESS THAN HALF the effort. [place] lifts, holds or supports trunk or limbs, but provides less than half the effort. 2-Substantial/Maximal Assistance-helper does MORE THAN HALF the effort. [place] lifts or holds trunk or limbs and provides more than half the effort. 5-Bplfoadug-pvzsou does ALL the effort. Patient does none of the effort to complete the activity. Or, the assistance of 2 or more helpers is required for the patient to complete the activity. If activity was not attempted, code reason: 7-Patient Refused. 9-Not Applicable-not attempted and the patient did not perform the activity before the current illness, exacerbation or injury. 10-Not Attempted due to Environmental Limitations-(lack of equipment, weather restraints, etc.). 88-Not Attempted due to Medical Conditions or Safety Concerns. Roll Left & Right (QC): 6 Sit to Lying (QC): 6 Lying to Sitting/Side of Bed(Q: 6 Sit to Stand (QC): 6 Chair/Zwn-ri-Fozji Xfer(QC): 6 Toilet Transfer (QC): 6 Car Transfer (QC): 6 VC given occasionally for safety. Weight Bearing Full Weight Bearing Full Weight Bearing Gait Training Does the Patient Walk?: Yes Distance: 150', 100' Walk 10 feet (QC): 6 Walk 50 ft with 2 Turns(QC): 5 Walk 150 ft (QC): 5 Walking 10ft/uneven surface-QC: 5 Gait Persons Needed: 1 Gait Assistive Device: FWW Wheelchair Training Does the Pt Use a Wheelchair?: No Stair Training Stair Training: Handrails/: 2 handrails #of Steps: 4 1 Step (curb) (QC): 5 4 Steps (QC): 5 12 Steps (QC): 7 Stairs: Pattern: Step to Balance Picking up an Object (QC): 88 Special Test Comments Safety concerns for balance so not attempted Exercises NuStep Minutes: 5 NuStep Workload: 4 Treatments Pt completes QC scoring items again since not d/c until tomorrow. Pt uses NuStep for 5m at [facility] 4 and then asked to stop as it was causing back discomfort where her pain is and didn't want to increase the pain. Pt completes Seated Ex with RB as needed. Pt amb. in hallway before returning to room. Pt rests in recliner with Kpad on back to aid in pain relief. All needs met, call light in hand. Assessment Current Status: Good Progress Pt is still confused at times and needs VC for occasional safety. PT Short Term Goals Short Term Goals Time Frame: Jan 12, 2021 Roll Left & Right: 6 Sit to lyin Lying to sitting on side of be: 6 Sit to stand: 4 Chair/izg-zq-jrlaq transfer: 4 Walk 10 feet: 4 Walk 50 feet with two turns: 4 Walk 150 feet: 4 PT Spool Sander Goals Spool Sander Goals PT Spool Sander Goals Time Frame: Jan 26, 2021 Roll Left & Right (QC): 6 Sit to Lying (QC): 6 Lying-Sitting on Side/Bed(QC): 6 Sit to Stand (QC): 4 (SBA) Chair/Deg-zw-Quekd Xfer(QC): 4 (SBA) Toilet Transfer (QC): 4 (SBA) Car Transfer (QC): 4 (SBA) Does the Patient Walk: Yes Walk 10 feet (QC): 4 (SBA) Walk 50ft with 2 Turns (QC): 4 (SBA) Walk 150 ft (QC): 4 (SBA) Walking 10ft on Uneven Surface: 4 (SBA) 1 Step (curb) (QC): 4 (SBA) 4 Steps (QC): 4 (SBA) 12 Steps (QC): 88 Picking up an Object (QC): 4 Wheel 50 feet with 2 turns (QC: 9 Wheel 150 feet: 9 PT Plan Problem List Problem List: Activity Tolerance, Safety Treatment/Plan Treatment Plan: Continue Plan of Care Treatment Plan: Bed Mobility, Education, Functional Activity Anish, Functional Strength, Group Therapy, Gait, Safety, Therapeutic Exercise, Transfers Treatment Duration: Jan 26, 2021 Frequency: At least 5 of 7 days/Wk (IRF) Estimated Hrs Per Day: 1.5 hours per day Patient and/or Family Agrees t: Yes Safety Risks/Education Patient Education: Safety Issues Teaching Recipient: Patient Teaching Methods: Discussion Response to Teaching: Verbalize Understanding Time/GCodes Time In: 800 Time Out: 915 Total Billed Treatment Time: 75 Total Billed Treatment 1, GT x2 (25m), EX x2 (30m) & FA (20m) MI YEH PTA Jan 11, 2021 09:23
--- NOTE | 2021-01-11 10:21 | Occupational Ther Daily Note ---
OT Current Status-Daily Note Subjective Pt seated in recliner, agreeable to OT tx. frequent trips to bathroom during tx, pt correlates this with receiving stool softener this morning. ADL-Treatment Therapy Code Descriptions/Definitions Functional Lotus Measure: 0=Not Assessed/NA 4=Minimal Assistance 1=Total Assistance 5=Supervision or Setup 2=Maximal Assistance 6=Modified Lotus 3=Moderate Assistance 7=Complete IndependenceSCALE: Activities may be completed with or without assistive devices. 4-Yblmnpvvnp-hbauhmt completes the activity by him/herself with no assistance from a helper. 5-Set-up or Clean-up Assistance-helper sets up or cleans up; patient completes activity. [place] assists only prior to or following the activity. 4-Supervision or Touching Assistance-helper provides verbal cues and/or touching/steadying and/or contact guard assistance as patient completes activity. Assistance may be provided throughout the activity or intermittently. 3-Partial/Moderate Assistance-helper does LESS THAN HALF the effort. [place] lifts, holds or supports trunk or limbs, but provides less than half the effort. 2-Substantial/Maximal Assistance-helper does MORE THAN HALF the effort. [place] lifts or holds trunk or limbs and provides more than half the effort. 7-Dpkhdheix-zbbtqa does ALL the effort. Patient does none of the effort to complete the activity. Or, the assistance of 2 or more helpers is required for the patient to complete the activity. If activity was not attempted, code reason: 7-Patient Refused. 9-Not Applicable-not attempted and the patient did not perform the activity before the current illness, exacerbation or injury. 10-Not Attempted due to Environmental Limitations-(lack of equipment, weather restraints, etc.). 88-Not Attempted due to Medical Conditions or Safety Concerns. Upper Body Dressing (QC): 5 (set up) Lower Body Dressing (QC): 4 (CGA in stand for pant hike) Toileting Hygiene (QC): 4 (SBA) Toilet Transfer (QC): 4 Other Treatment Pt seated in recliner, OT provided pt with bag of clothes and pt able to find clothes to wear. Pt used FWW to perform functional mobility into bathroom and sat on toilet to complete toileting and change clothes. Pt able to don LE clothing with CGA in stand for pant hike, and changed shirt. Pt then used FWW to perform functional mobility to therapy gym. OT tx with focus on sequencing, problem solving, and fine motor tasks. Pt completed peg petrona task, ~75% accuracy. OT cued pt to locate errors, and remove wrong pins. Pt then completed task with min errors (Mod verbal cues for problem solving). Pt states need to toilet again, using FWW to return to room, complete toileting, and stand at sink to wash hands. Pt returned to therapy gym. Pt completed rubber band task placing rubberbands on board following printed diagram. Pt completed first board, able to self correct all errors except one. Max verbal cues to locate and solve erro r. Pt completed another rubber band pattern, this time OT gave pt the correct amount/color of bands for diagram. Pt got half way through task, requests to use bathroom again, FWW to bathroom to complete toileting, then returned to therapy gym. Pt completed 2nd diagram with max verbal cues with last 2 rubber bands. Pt used FWW to perform functional mobility around [facility] common area/2nd floor, then returned to her room to recliner. Post tx, pt seated upright, call light in reach and all needs met. Education OT Patient Education: Correct positioning, Modified ADL techniques, Progress toward Goal/Update tx plan, Purpose of tx/functional activities, Rehab process Teaching Recipient: Patient Teaching Methods: Discussion Response to Teaching: Verbalize Understanding OT Short Term Goals Short Term Goals Time Frame: Jan 12, 2021 Upper body dressin Lower body dressin Putting on/taking off footwear: 5 OT Tubular Stock Glass Bulb Machine Former Goals Tubular Stock Glass Bulb Machine Former Goals Time Frame: Jan 26, 2021 Eating (QC): 6 Oral Hygiene (QC): 6 Toileting Hygiene (QC): 6 Shower/Bathe Self (QC): 6 Upper Body Dressing (QC): 6 Lower Body Dressing (QC): 6 On/Off Footwear (QC): 6 1=Demonstrate adherence to instructed precautions during ADL tasks. 2=Patient will verbalize/demonstrate understanding of assistive devices/modifications for ADL. 3=Patient will improve strength/tolerance for activity to enable patient to perf orm ADL's. OT Education/Plan Problem List/Assessment Assessment: Decreased Activ Tolerance, Decreased UE Strength, Impaired Cognition, Impaired Funct Balance, Impaired I ADL's, Impaired Self-Care Skills Discharge Recommendations Plan/Recommendations: Continue POC Treatment Plan/Plan of Care Patient would benefit from OT for education, treatment and training to promote independence in ADL's, mobility, safety and/or upper extremity function for ADL's. Plan of Care: ADL Retraining, Functional Mobility, Group Exercise/Act as Ind, UE Funct Exercise/Act Treatment Duration: Jan 26, 2021 Frequency: At least 5 of 7 days/Wk (IRF) Estimated Hrs Per Day: 1.5 hours per day Agreement: Yes Rehab Potential: Fair Time/GCodes Start Time: 09:30 Stop Time: 10:45 Total Time Billed (hr/min): 75 Billed Treatment Time 1, ADL 2 (30'), FA 3 (45') PANKAJ BHATIA OT Jan 11, 2021 10:21
--- NOTE | 2021-01-11 10:58 | Speech Therapy Daily Note ---
Speech Daily Progress Note Subjective Date Seen by Provider: Jan 11, 2021 Time Seen by Provider: 00:30 Patient was resting in her chair following her other therapies. She is excited to be discharging back to her home tomorrow. Objective Patient completed general information related to her return home with 80% with focus on safety given 20% cues. Assessment Assessment Current Status: Good Progress Treatment Plan Discontinue ST Speech Short Term Goals Short Term Goals Short Term Goals 1) The patient will complete safety awareness tasks related to her daily needs at 80% or greater with minimal cues. 2) The patient will complete memory tasks related to her daily needs at 80% or greater with minimal cues. 3) The patient will complete problem solving tasks related to her daily needs at 80% or greater with minimal cues. Speech Half-Way Goals Half-Way Goals Patient will improve cognitive communication abilities in order to return home safely with decreased assistance. Speech-Plan Patient/Family Goals Patient/Family Goals: Patient is returning to her home where she lives alone. She will receive home health services. Treatment Plan Speech Therapy Treatment Plan: Discontinue ST Treatment Duration: Jan 19, 2021 Frequency: 4 times per week (Patient will receive skilled ST 4-5x per week) Estimated Hrs Per Day: .5 hour per day Rehab Potential: Fair Barriers to Learning: Patient's cognitive deficits Pt/Family Agrees to Plan: Yes Safety Risks/Education Teaching Recipient: Patient Teaching Methods: Demonstration, Discussion Response to Teaching: Verbalize Understanding, Return Demonstration Education Topics Provided: Continued safety upon her return home Time Speech Therapy Time In: 11:00 Speech Therapy Time Out: 11:30 Total Billed Time: 30 Billed Treatment Time 1, MICHAEL Chin Jan 11, 2021 10:58
--- NOTE | 2021-01-11 11:47 | Therapy Team Discharge Summary ---
Therapy Discharge Summary Discharge Recommendations Date of Discharge Occupational Therapy Decreased Activ Tolerance, Decreased UE Strength, Impaired Cognition, Impaired Funct Balance, Impaired I ADL's, Impaired Self-Care Skills Speech-Language Pathology Patient was admitted to the ARU s/p CVA. Patient was given the SLUMS with mild cognitive deficits noted. She received skilled ST with focus on safety awareness, memory and problem solving. The patient is discharging to her home tomorrow where she lives alone. She will have home health services as well as family/friend support for assist as needed with daily tasks. PT Associate Professor Of Mathematics Goals Shelter Goals PT Associate Professor Of Mathematics Goals Time Frame: Jan 26, 2021 Roll Left to Right (QC): 6 Sit to Lying (QC): 6 Lying-Sitting on Side/Bed(QC): 6 Sit to Stand (QC): 4 (SBA) Chair/Ndb-cd-Ocmkg Xfer(QC): 4 (SBA) Car Transfer (QC): 4 (SBA) Does the Patient Walk: Yes Walk 10 feet (QC): 4 (SBA) Walk 10ft-Uneven Surface(QC): 4 (SBA) Walk 50ft with 2 Turns (QC): 4 (SBA) Walk 150 ft (QC): 4 (SBA) Wheel 50 feet with 2 turns (QC: 9 1 Step (curb) (QC): 4 (SBA) 4 Steps (QC): 4 (SBA) 12 Steps (QC): 88 Picking up an Object (QC): 4 OT Associate Professor Of Mathematics Goals Associate Professor Of Mathematics Goals Time Frame: Jan 26, 2021 Eating (QC): 6 Oral Hygiene (QC): 6 Shower/Bathe Self (QC): 6 Upper Body Dressing (QC): 6 Lower Body Dressing (QC): 6 On/Off Footwear (QC): 6 Toileting Hygiene (QC): 6 Toilet/Commode Transfer (QC): 4 (SBA) 1=Demonstrate adherence to instructed precautions during ADL tasks. 2=Patient will verbalize/demonstrate understanding of assistive devices/modifications for ADL. 3=Patient will improve strength/tolerance for activity to enable patient to perform ADL's. Speech Associate Professor Of Mathematics Goals Shelter Goals Patient will improve cognitive communication abilities in order to return home safely with decreased assistance. MICHAEL DE LA ROSA Jan 11, 2021 11:47
--- NOTE | 2021-01-11 15:24 | Therapy Team Discharge Summary ---
Therapy Discharge Summary Discharge Recommendations Date of Discharge 01-12-21 Therapy D/C Recommendations: Home w/ Family Support, Occupational Therapy Home Care Occupational Therapy Pt. has been seen by Occupational therapy to increase overall strength and independence with daily skills. Pt. did not meet most goals due to safety needs and requiring cues for processing and sequencing. At discharge, pt. able to complete bathing and UE dressing with SBA. Required CGA and max cues for LE dressing. Set up with footwear. SBA with toileting and toilet transfer. Decreased Activ Tolerance, Decreased Safety Aware, Decreased UE Strength, Impaired Cognition, Impaired Funct Balance, Impaired I ADL's, Impaired Self-Care Skills PT Care Home Goals Riding Silks Custodian Goals PT Care Home Goals Time Frame: Jan 26, 2021 Roll Left to Right (QC): 6 Sit to Lying (QC): 6 Lying-Sitting on Side/Bed(QC): 6 Sit to Stand (QC): 4 (SBA) Chair/Wgi-mr-Gmtct Xfer(QC): 4 (SBA) Car Transfer (QC): 4 (SBA) Does the Patient Walk: Yes Walk 10 feet (QC): 4 (SBA) Walk 10ft-Uneven Surface(QC): 4 (SBA) Walk 50ft with 2 Turns (QC): 4 (SBA) Walk 150 ft (QC): 4 (SBA) Wheel 50 feet with 2 turns (QC: 9 1 Step (curb) (QC): 4 (SBA) 4 Steps (QC): 4 (SBA) 12 Steps (QC): 88 Picking up an Object (QC): 4 OT Care Home Goals Riding Silks Custodian Goals Time Frame: Jan 26, 2021 Eating (QC): 6 (met) Oral Hygiene (QC): 6 (not met) Shower/Bathe Self (QC): 6 (not met) Upper Body Dressing (QC): 6 (not met) Lower Body Dressing (QC): 6 (not met) On/Off Footwear (QC): 6 (not met) Toileting Hygiene (QC): 6 (not met) Toilet/Commode Transfer (QC): 4 (SBA- met) 1=Demonstrate adherence to instructed precautions during ADL tasks. 2=Patient will verbalize/demonstrate understanding of assistive devices/modifications for ADL. 3=Patient will improve strength/tolerance for activity to enable patient to perform ADL's. Speech Care Home Goals Care Home Goals Patient will improve cognitive communication abilities in order to return home safely with decreased assistance. KELECHI PARK OT Jan 11, 2021 15:24
[2021-01-11 20:00] VITALS: BP 149/70
[2021-01-11] MEDS: DICLOFENAC 1% GEL 100 GM (VOLTAREN) TUBE TOP PRN (20:10)
[2021-01-11] MEDS: MONTELUKAST 10 MG (SINGULAIR) TAB PO SCH (20:10)
[2021-01-12] MEDS: KCL 10 MEQ TAB (MICRO K) PO SCH (06:10)
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
[2021-01-12 07:23] VITALS: BP 149/67
[2021-01-12] MEDS: amLODIPine 5 MG (NORVASC) TAB PO SCH (08:22)
[2021-01-12] MEDS: VALSARTAN 160 MG (DIOVAN) TABLET PO SCH (08:22)
[2021-01-12] MEDS: ATENOLOL 50 MG (TENORMIN) TAB PO SCH (08:22)
[2021-01-12] MEDS: ASPIRIN E.C. 81 MG (ECOTRIN) TAB PO SCH (08:22)
[2021-01-12] MEDS: ALLOPURINOL 100 MG (ZYLOPRIM) TAB PO SCH (08:22)
[2021-01-12] MEDS: LORATADINE (CLARITIN) 10 MG TAB PO SCH (08:22)
[2021-01-12] MEDS: CLOPIDOGREL 75 MG (PLAVIX) TABLET PO SCH (08:22)
[2021-01-12] MEDS: FLUOROMETHOLONE 0.1% OU SCH (08:23)
[2021-01-12 08:24] VITALS: BP 137/61
[2021-01-12 09:53] VITALS: BP 137/61
--- NOTE | 2021-01-12 11:46 | Therapy Team Discharge Summary ---
Therapy Discharge Summary Discharge Recommendations Date of Discharge Jan 12, 2021 at 09:58 Therapy D/C Recommendations: Home w/ Family Support, Occupational Therapy Home Care Physical Therapy Patient came to rehab following a CVA. Upon evaluation patient performed bed mobility and supine <-> sit with independence, sit <-> stand min assist, transfers CGA, car transfer min assist, ambulated 150' with a rolling walker with CGA (including 50' with at least 2 turns of 90 degrees but needs min assist for 10' over an uneven surface), propelled a manual WC 200' with max assist, and went up and down 1 step using a rolling walker with min assist. Patient has been performing bed mobility and transfer training, balance and endurance training, functional strengthening, stair training, gait training, and educ ation. Patient has made good progress and has met all of her fpc goals except for picking up an object from the floor. Now, patient performs bed mobility and transfers with independence, independent with car transfer, ambulates 150' with a rolling walker with setup (including 50' with at least 2 turns of 90 degrees and 10' over an uneven surface), can go up and down 4 steps using 2 handrails with setup, but cannot flower buncher or picker an object from the floor due to safety issues. Patient has been discharged from this facility and will be discharged from PT at this time. Occupational Therapy Decreased Activ Tolerance, Decreased Safety Aware, Decreased UE Strength, Impaired Cognition, Impaired Funct Balance, Impaired I ADL's, Impaired Self-Care Skills PT Wireless Manager Goals Wireless Manager Goals PT Group Home Goals Time Frame: Jan 26, 2021 Roll Left to Right (QC): 6 Sit to Lying (QC): 6 Lying-Sitting on Side/Bed(QC): 6 Sit to Stand (QC): 4 (SBA) Chair/Lze-ml-Fafxe Xfer(QC): 4 (SBA) Car Transfer (QC): 4 (SBA) Does the Patient Walk: Yes Walk 10 feet (QC): 4 (SBA) Walk 10ft-Uneven Surface(QC): 4 (SBA) Walk 50ft with 2 Turns (QC): 4 (SBA) Walk 150 ft (QC): 4 (SBA) Wheel 50 feet with 2 turns (QC: 9 1 Step (curb) (QC): 4 (SBA) 4 Steps (QC): 4 (SBA) 12 Steps (QC): 88 Picking up an Object (QC): 4 OT Wireless Manager Goals Group Home Goals Time Frame: Jan 26, 2021 Eating (QC): 6 (met) Oral Hygiene (QC): 6 (not met) Shower/Bathe Self (QC): 6 (not met) Upper Body Dressing (QC): 6 (not met) Lower Body Dressing (QC): 6 (not met) On/Off Footwear (QC): 6 (not met) Toileting Hygiene (QC): 6 (not met) Toilet/Commode Transfer (QC): 4 (SBA- met) 1=Demonstrate adherence to instructed precautions during ADL tasks. 2=Patient will verbalize/demonstrate understanding of assistive devices/modifications for ADL. 3=Patient will improve strength/tolerance for activity to enable patient to perform ADL's. Speech Group Home Goals Group Home Goals Patient will improve cognitive communication abilities in order to return home safely with decreased assistance. SOPHY SIMON PT Jan 12, 2021 11:46
== END 2021-01-12 09:58 | disposition home health service (06) | DRG 57 ==
PROVIDERS: ADMIT Internal Medicine; ATTEND Internal Medicine
DX: I69.354 Hemiplegia and hemiparesis following cerebral infarction affecting left non-dominant side (principal); I69.392 Facial weakness following cerebral infarction; I69.328 Other speech and language deficits following cerebral infarction; F17.200 Nicotine dependence, unspecified, uncomplicated; J44.9 Chronic obstructive pulmonary disease, unspecified; I12.9 Hypertensive chronic kidney disease with stage 1 through stage 4 chronic kidney disease, or unspecified chronic kidney disease; N18.9 Chronic kidney disease, unspecified; E78.00 Pure hypercholesterolemia, unspecified; E78.5 Hyperlipidemia, unspecified; M10.9 Gout, unspecified; M19.91 Primary osteoarthritis, unspecified site; F09 Unspecified mental disorder due to known physiological condition; S12.000D Unspecified displaced fracture of first cervical vertebra, subsequent encounter for fracture with routine healing; M54.5 Low back pain; Z79.82 Long term (current) use of aspirin
CPT/HCPCS: 36415; 80053; 85025

== ENCOUNTER 2021-10-07 13:20 | Emergency (ER) | payer MEDICARE, OTHER ==
[~2021-10-07] VITALS: Ht 157 cm; Wt 58.0 kg
[~2021-10-07 13:20] MED LIST changes: +ALLO100T PO; +ALPR.25T PO; +AMLO-250 PO; +ASPI-1238 PO; +ATEN50TA PO; +ATOR40TA70 PO; +CAND1TAB16 PO; +CETI10TA17 PO; +CLOP75TA28 PO; +FLUO5DRO OU; +MELA5TAB14 PO; +MONT-40 PO; +POTA-160 PO; +TRAM1TAB7 PO
--- NOTE | 2021-10-07 13:40 | ED Cardiac General ---
History of Present Illness General Stated Complaint: ELEV BP 228/88 Source: patient History of Present Illness Date Seen by Provider: October 07, 2021 Time Seen by Provider: 13:28 Initial Comments PT ARRIVES VIA POV FROM HOME WITH FAMILY C/O ELEVATED BLOOD PRESSURE--228/88 PT DENIES ANY SYMPTOMS OTHER THAN FEELING A LITTLE BIT WEAK ALL OVER STATES SHE AND HER FAMILY WERE GETTING READY TO GO TO [place] [employer] [place] AND [employer] TOLD HER TO CHECK HER BLOOD PRESSURE BEFORE THEY LEFT, AND IT WAS HIGH, SO CAME HERE PT HAS LONGSTANDING HTN, AND TAKES MULTIPLE MEDICATIONS FOR IT. NO RECENT MEDICATION CHANGES OR MISSED DOSES OF MEDICATIONS ATENOLOL, AMLODIPINE, CANDESARTAN/HCTZ, WELL PLAVIX WAS SEEN AT [facility] FRIDAY NIGHT 10/05/21 FOR RAPID HEART BEAT--CAME IN BY EMS WITH C/O SHORTNESS OF BREATH And WAS FOUND TO HAVE HR OF 150, PT COUGHED AND CONVERTED TO NSR WITHOUT TREATMENT, PRIOR TO ARRIVAL TO [facility]. HR WAS IN 60'S FOR ER STAY PT ADAMANTLY REFUSED ADMIT OR TRANSFER HERE. SHE WAS TREATED AND RELEASED. NO CHANGE IN MEDICATIONS HAS AN APPOINTMENT WITH DR. FUENTES TOMORROW FOR FOLLOW UP. NO CHEST PAIN NO SHORTNESS OF BREATH NO HEADACHE NO DIZZINESS NO VISION CHANGES NO NAUSEA/VOMITING NO PARESTHESIAS OR MOTOR DEFICITS NO PALPITATIONS NO SYNCOPE PCP: DR. IBRAHIM FILM PROJECTOR OPERATOR: DR. FUENTES Allergies and Home Medications Allergies Coded Allergies: codeine (Unverified Allergy, Mild, RASH, 09/23/08) Patient Home Medication List Home Medication List Reviewed: Yes ALPRAZolam (Xanax Tablet) 0.25 Mg Tab, 0.25 MG PO Q8H PRN for ANXIETY Prescribed by: MIGEL SANCHEZ on 01/10/212118 Allopurinol (Allopurinol) 100 Mg Tablet, 100 MG PO DAILY Prescribed by: MIGEL SANCHEZ on 01/10/212117 Amlodipine Besylate (Amlodipine Besylate) 5 Mg Tablet, 5 MG PO BID Prescribed by: MIGEL SANCHEZ on 01/10/212117 Aspirin (Aspirin EC) 81 Mg Tablet.dr 81 MG PO DAILY Prescribed by: MIGEL SANCHEZ on 01/10/212117 Atenolol (Atenolol) 50 Mg Tablet, 50 MG PO BID Prescribed by: MIGEL SANCHEZ on 01/10/212117 Atorvastatin Calcium (Atorvastatin Calcium) 40 Mg Tablet, 40 MG PO HS Prescribed by: MIGEL SANCHEZ on 01/10/212117 Candesartan/Hydrochlorothiazid (Candesartan-Hctz 32-12.5 mg Tb) 1 Each Tablet, 1 EA PO DAILY Prescribed by: MIGEL SANCHEZ on 01/10/212117 Cetirizine HCl (Cetirizine HCl) 10 Mg Tablet, 10 MG PO DAILY Prescribed by: MIGEL SANCHEZ on 01/10/212117 Clopidogrel Bisulfate (Clopidogrel) 75 Mg Tablet, 75 MG PO DAILY Prescribed by: MIGEL SANCHEZ on 01/10/212117 Fluorometholone Acetate (Flarex) 5 Ml Drops.susp, 1 DROP OU DAILY, (Reported) Entered as Reported by: RENETTA GUERRERO on 01/05/21 1020 Melatonin (Melatonin) 5 Mg Tablet, 5-10 MG PO HS PRN for SLEEP, (Reported) Entered as Reported by: RENETTA GUERRERO on 01/05/21 1020 Montelukast Sodium (Montelukast Sodium) 10 Mg Tablet, 10 MG PO HS Prescribed by: MIGEL SANCHEZ on 01/10/212117 Potassium Chloride (Klor-Con 10) 10 Meq Tablet.er, 10 MEQ PO DAILY@0700 Prescribed by: MIGEL SANCHEZ on 01/10/212117 Tramadol HCl/Acetaminophen (Tramadol-Acetaminophn 37.5-325) 1 Each Tablet, 1-2 EA PO Q6H PRN for PAIN-MODERATE (5-7) Prescribed by: MIGEL SANCHEZ on 01/10/212118 Review of Systems Review of Systems Constitutional: see HPI, malaise EENTM: No Symptoms Reported Respiratory: No Symptoms Reported; Denies Shortness of Air Cardiovascular: No Symptoms Reported; Denies Chest Pain, Denies Edema, Denies Irregular Heart Rate, Denies Lightheadedness, Denies Palpitations, Denies Syncope Gastrointestinal: No Symptoms Reported; Denies Abdominal Pain, Denies Nausea, Denies Vomiting Genitourinary: No Symptoms Reported Musculoskeletal: no symptoms reported Skin: no symptoms reported Psychiatric/Neurological: No Symptoms Reported; Denies Headache, Denies Numbness, Denies Paresthesia, Denies Tingling, Denies Weakness Endocrine: No Symptoms Reported Hematologic/Lymphatic: No Symptoms Reported Past Pyebdsx-Lwmwvs-Tjdvze Hx Patient Social History Tobacco Use?: Yes Smoking Status: Former Smoker Substance use?: No Alcohol Use?: No Past Medical History Cardiac: Yes (SVT?) High Cholesterol, Hypertension, Irregular Heartbeat Neurological: Yes (CVA LEFT SIDED WEAKNESS AND CONFUSION 12/2020) 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 oz. 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 Norm as Tested Skin: Normal Color, Warm/Dry Procedures/Interventions Date of ETT Placement: Dec 27, 2020 Time of ETT Placement: 2101 Progress/Results/Core Measures Results/Orders Lab Results Laboratory Tests Test 10/07/21 13:35 Range/Units White Blood Count 10.9 4.3-11.0 10^3/uL Red Blood Count 4.46 3.80-5.11 10^6/uL Hemoglobin 12.5 11.5-16.0 g/dL Hematocrit 38 35-52 % Mean Corpuscular Volume 85 80-99 fL Mean Corpuscular Hemoglobin 28 25-34 pg Mean Corpuscular Hemoglobin Concent 33 32-36 g/dL Red Cell Distribution Width 13.5 10.0-14.5 % Platelet Count 277 130-400 10^3/uL Mean Platelet Volume 9.9 9.0-12.2 fL Immature Granulocyte % (Auto) 0 % Neutrophils (%) (Auto) 76 H 42-75 % Lymphocytes (%) (Auto) 16 12-44 % Monocytes (%) (Auto) 5 0-12 % Eosinophils (%) (Auto) 1 0-10 % Basophils (%) (Auto) 1 0-10 % Neutrophils # (Auto) 8.3 H 1.8-7.8 10^3/uL Lymphocytes # (Auto) 1.8 1.0-4.0 10^3/uL Monocytes # (Auto) 0.6 0.0-1.0 10^3/uL Eosinophils # (Auto) 0.2 0.0-0.3 10^3/uL Basophils # (Auto) 0.1 0.0-0.1 10^3/uL Immature Granulocyte # (Auto) 0.0 0.0-0.1 10^3/uL Prothrombin Time 12.6 12.2-14.7 SEC INR Comment 0.9 0.8-1.4 Activated Partial Thromboplast Time 29 24-35 SEC Sodium Level 136 135-145 MMOL/L Potassium Level 3.6 3.6-5.0 MMOL/L Chloride Level 96 L 98-107 MMOL/L Carbon Dioxide Level 25 21-32 MMOL/L Anion Gap 15 H 5-14 MMOL/L Blood Urea Nitrogen 19 H 7-18 MG/DL Creatinine 1.23 0.60-1.30 MG/DL Estimat Glomerular Filtration Rate 43 BUN/Creatinine Ratio 15 Glucose Level 108 H 70-105 MG/DL Calcium Level 9.6 8.5-10.1 MG/DL Corrected Calcium 9.8 8.5-10.1 MG/DL Magnesium Level 1.2 L 1.6-2.4 MG/DL Total Bilirubin 0.7 0.1-1.0 MG/DL Aspartate Amino Transf (AST/SGOT) 24 5-34 U/L Alanine Aminotransferase (ALT/SGPT) 44 0-55 U/L Alkaline Phosphatase 119 40-136 U/L Troponin I 0.356 *H <0.028 NG/ML B-Type Natriuretic Peptide 387.8 H <100.0 PG/ML Total Protein 6.9 6.4-8.2 GM/DL Albumin 3.8 3.2-4.5 GM/DL My Orders Orders - MARK MCNEAL DO Ed Iv/Invasive Line Start (10/07/21 13:28) Ekg Tracing (10/07/21 13:28) Monitor-Rhythm Ecg Trace Only (10/07/21 13:28) Chest 1 View, Ap/Pa Only (10/07/21 13:28) Bnp Jewell (10/07/21 13:28) Cbc With Automated Diff (10/07/21 13:28) Comprehensive Metabolic Panel (10/07/21 13:28) Magnesium (10/07/21 13:28) Protime With Inr (10/07/21 13:28) Partial Thromboplastin Time (10/07/21 13:28) Troponin I Jewell (10/07/21 13:28) Hydralazine Injection (Apresoline Inject (10/07/21 14:00) Magnesium Oxide Tablet (Mag Ox Tablet) (10/07/21 18:00) Magnesium Oxide Tablet (Mag Ox Tablet) (10/07/21 14:18) Medications Given in ED Current Medications Medications Dose Ordered Sig/Jacky Route Start Time Stop Time Status Last Admin Dose Admin Hydralazine HCl 10 mg ONCE ONCE IV 10/07/21 14:00 10/07/21 14:01 DC 10/07/21 13:56 10 MG Magnesium Oxide 400 mg STK-MED ONCE .ROUTE 10/07/21 14:18 10/07/21 14:22 DC 10/07/21 14:24 1,600 MG Vital Signs/I&O 10/07/21 10/07/21 13:28 14:27 Temp 37.1 Pulse 64 62 Resp 18 18 B/P (MAP) 214/87 (129) 164/72 Pulse Ox 99 99 Progress Progress Note : Progress Note GIVEN HYDRALAZINE 10 MG IV--WITH IMPROVEMENT IN BLOOD PRESSURE BP DOWN TO 164/72 PRIOR TO DISMISSAL PT ANXIOUS TO GO HOME, AND DOES NOT WANT TO BE ADMITTED. DISCUSSED WITH FAMILY WELL, AND GAVE STRICT RETURN PRECAUTIONS TO PATIENT AND FAMILY. FAMILY MEMBER WILL BE STAYING WITH PATIENT Initial ECG Impression Date: October 07, 2021 Initial ECG Impression Time: 13:38 Initial ECG Rate: 60 Initial ECG Rhythm: Normal Sinus Diagnostic Imaging Comments CXR--PER RADIOLOGIST REPORT AT 1409 Comparison: 12/27/2020. Discussion: Single portable upright view of the chest was obtained. Heart is upper limits of normal in size. No focal consolidation identified. Some interstitial thickening appears chronic. No pleural fluid or pneumothorax. No osseous abnormality. Impression: 1. No acute cardiopulmonary process. Reviewed: Reviewed by Me Departure Communication (Admissions) 5697--SPOKE WITH DR. FUENTES, FILM PROJECTOR OPERATOR, HE ADVISES TO SEND PT HOME, AND ADVISES THAT ELEVATED TROPONIN IS LIKELY DUE TO ELEVATED BLOOD PRESSURE, And PT IS TO KEEP APPOINTMENT WITH HIM TOMORROW. Impression Primary Impression: HTN (hypertension) Additional Impressions: Elevated troponin Hypomagnesemia Disposition: HOME, SELF-CARE Condition: Improved Departure-Patient Inst. Decision time for Depature: 14:19 Referrals: GRETEL FEUNTES MD, JACQUELINE S DO (PCP/Family) Primary Care Physician Patient Instructions: Troponin Test, High Blood Pressure ED, DASH Diet, Low Magnesium Level Add. Discharge Instructions: CONTINUE YOUR MEDICATIONS PRESCRIBED KEEP YOUR APPOINTMENT WITH DR. FUENTES TOMORROW RETURN TO ER IF SYMPTOMS WORSEN MARK CMNEAL DO October 07, 2021 13:39
[2021-10-07 13:42] LABS: BASOPHILS # (AUTO) 0.1 10^3/uL (0.0-0.1); BASOPHILS % (AUTO) 1 % (0-10); EOSINOPHILS # (AUTO) 0.2 10^3/uL (0.0-0.3); EOSINOPHILS % (AUTO) 1 % (0-10); HEMATOCRIT 38 % (35-52); HEMOGLOBIN 12.5 g/dL (11.5-16.0); LYMPHOCYTES # (AUTO) 1.8 10^3/uL (1.0-4.0); LYMPHOCYTES % (AUTO) 16 % (12-44); MEAN CORPUSCULAR HEMOGLOBIN 28 pg (25-34); MEAN CORPUSCULAR HGB CONC 33 g/dL (32-36); MEAN CORPUSCULAR VOLUME 85 fL (80-99); MEAN PLATELET VOLUME 9.9 fL (9.0-12.2); MONOCYTES # (AUTO) 0.6 10^3/uL (0.0-1.0); MONOCYTES % (AUTO) 5 % (0-12); NEUTROPHILS # (AUTO) 8.3 10^3/uL (1.8-7.8); NEUTROPHILS % (AUTO) 76 % (42-75); PLATELET COUNT 277 10^3/uL (130-400); WHITE BLOOD COUNT 10.9 10^3/uL (4.3-11.0)
[2021-10-07 13:51] LABS: ALBUMIN 3.8 GM/DL (3.2-4.5); INR 0.9 (0.8-1.4); POTASSIUM 3.6 MMOL/L (3.6-5.0); PROTHROMBIN TIME PATIENT 12.6 SEC (12.2-14.7)
[2021-10-07 13:53] LABS: CALCIUM 9.6 MG/DL (8.5-10.1)
[2021-10-07 13:54] LABS: TOTAL PROTEIN 6.9 GM/DL (6.4-8.2)
[2021-10-07 13:56] LABS: BILIRUBIN,TOTAL 0.7 MG/DL (0.1-1.0)
[2021-10-07 13:57] LABS: CREATININE SERUM 1.23 MG/DL (0.60-1.30)
[2021-10-07 14:00] LABS: MAGNESIUM 1.2 MG/DL (1.6-2.4)
[2021-10-07] MEDS ORDERED: hydrALAZINE (APESOLINE) 20 MG/ML VIAL IV ONE (14:00)
--- NOTE | 2021-10-07 14:01 | Diagnostic Imaging Report ---
Indication: Chest pain and hypertension. Comparison: 12/27/2020. Discussion: Single portable upright view of the chest was obtained. Heart is upper limits of normal in size. No focal consolidation identified. Some interstitial thickening appears chronic. No pleural fluid or pneumothorax. No osseous abnormality. Impression: 1. No acute cardiopulmonary process. Dictated by: Dictated on workstation # [id number]
[2021-10-07] MEDS ORDERED: MAGNESIUM OXIDE (MAG-OX)400 MG TAB ONE (14:18)
[2021-10-07 14:27] VITALS: BP 164/72
[2021-10-07] MEDS ORDERED: MAGNESIUM OXIDE (MAG-OX)400 MG TAB PO SCH (18:00)
== END 2021-10-07 14:31 | disposition home or self-care (01) ==
LOC: EDUNIT# 13:20 → ER 13:22
DX: I10 Essential (primary) hypertension (principal); E83.42 Hypomagnesemia; R77.8 Other specified abnormalities of plasma proteins
CPT/HCPCS: 36415; 71045; 80053; 83735; 83880; 84484; 85025; 85610; 85730; 93005; 93041

== ENCOUNTER 2021-10-10 09:30 | Day surgery (SDC) | payer MEDICARE, OTHER ==
[~2021-10-10] VITALS: Ht 157.5 cm; Wt 57.5 kg
[2021-10-10 09:07] VITALS: BP 198/76
[~2021-10-10 09:30] MED LIST changes: +LIDOCAINE 1% INJ 20 ML VIAL ONE
--- NOTE | 2021-10-10 10:54 | Implantation of Loop Monitor ---
Implant of Loop Monitior IMPLANTATION OF LOOP MONITOR REPORT DATE OF PROCEDURE: 10/10/21 PREOP DIAGNOSIS: Cryptogenic stroke POSTOP DIAGNOSIS: Cryptogenic stroke PROCEDURE DETAILS: The patient is a 86 female with history of cryptogenic stroke requiring long- term surveillance. Therefore implantable loop recorder was discussed and agreed with the patient. Informed consent was taken. All risks and complications were discussed at length. The patient was draped and prepped in the usual sterile fashion. Local anesthesia was lidocaine, which was given in the substernal area close to the 4th intercostal space. Loop monitor [employer] with serial number [id number] was implanted according to the protocol. Steri-Strips were placed at the end of the procedure. There were no complications and the patient tolerated the procedure well. The device was interrogated with a voltage of. ANESTHESIA: Local anesthesia with lidocaine. COMPLICATIONS: None CONTRAST/FLUOROSCOPY: None CONCLUSION: Successful implantation of loop monitor with no complication FINAL DIAGNOSIS: Cryptogenic stroke Palpitation Hypertension GRETEL FUENTES MD October 10, 2021 10:54
== END 2021-10-10 10:49 ==
LOC: CATH 09:30
PROVIDERS: ATTEND Internal Medicine Cardiovascular Disease
DX: I63.9 Cerebral infarction, unspecified (principal); I10 Essential (primary) hypertension; R00.2 Palpitations; I35.0 Nonrheumatic aortic (valve) stenosis; I65.23 Occlusion and stenosis of bilateral carotid arteries; M19.90 Unspecified osteoarthritis, unspecified site; E78.2 Mixed hyperlipidemia; F17.210 Nicotine dependence, cigarettes, uncomplicated; Z79.82 Long term (current) use of aspirin; Z79.01 Long term (current) use of anticoagulants; Z79.899 Other long term (current) drug therapy
CPT/HCPCS: 33285; 93306; C1764

== ENCOUNTER → 2021-10-12 | Outpatient (CLI) | payer MEDICARE, OTHER ==
[~2021-10-12] MED LIST changes: -LIDOCAINE 1% INJ 20 ML VIAL ONE
[2021-10-12 10:39] LABS: ALBUMIN 3.5 GM/DL (3.2-4.5); BILIRUBIN,TOTAL 0.7 MG/DL (0.1-1.0); CALCIUM 9.4 MG/DL (8.5-10.1); CREATININE SERUM 1.2 MG/DL (0.60-1.30); POTASSIUM 3.8 MMOL/L (3.6-5.0); TOTAL PROTEIN 6.3 GM/DL (6.4-8.2)
== END ==
LOC: LAB 09:51
PROVIDERS: ATTEND Internal Medicine Cardiovascular Disease
DX: I10 Essential (primary) hypertension (principal); E78.2 Mixed hyperlipidemia; I25.10 Atherosclerotic heart disease of native coronary artery without angina pectoris; I65.23 Occlusion and stenosis of bilateral carotid arteries
CPT/HCPCS: 36415; 80053; 80061

== ENCOUNTER → 2021-11-02 | Outpatient (CLI) | payer MEDICARE, OTHER ==
--- NOTE | 2021-11-02 14:17 | Diagnostic Imaging Report ---
INDICATION: Central hypertension. FINDINGS: RIGHT KIDNEY: Kidney measures 10 x 4.2 x 5.9 cm with increased arterial velocity within the proximal mid portion of the right main renal artery with maximum velocity reaching 2.4 m/s with a renal artery to aortic ratio of 2.4. Arcuate artery resistive indices range from 0.66 to 0.74. Note is made of an approximately 2.1 x 2.2 x 2.9 cm cyst in the mid portion of the right kidney with mild right hydronephrosis. LEFT KIDNEY: Kidney measures 9.4 x 4.9 x 4.8 cm with normal arterial flow in the left main renal artery. Arcuate artery resistive indices range from 0.59 to 0.77. No perinephric fluid collection is identified, and there is no left hydronephrosis. 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 There is also a dominant simple cyst in the right kidney and possible mild right hydronephrosis, although this could be related to renal cyst as well. Left kidney is somewhat smaller in size but otherwise unremarkable in appearance. Dictated by: Dictated on workstation # [id number]
== END ==
LOC: RAD 08:14
PROVIDERS: ATTEND Physician Assistant
DX: N28.1 Cyst of kidney, acquired (principal); I10 Essential (primary) hypertension
CPT/HCPCS: 76770; 93975

== ENCOUNTER 2021-12-07 15:03 | Emergency (ER) | payer MEDICARE, OTHER ==
[~2021-12-07] VITALS: Ht 157.4 cm; Wt 56.7 kg
[~2021-12-07 15:03] MED LIST changes: -CAND1TAB16 PO; +CAND1TAB17 PO
[2021-12-07] MEDS ORDERED: ADENOSINE 6 MG/2 ML (ADENOCARD) VIAL IV ONE ×2 (15:15)
[2021-12-07 15:26] LABS: BASOPHILS # (AUTO) 0.1 10^3/uL (0.0-0.1); BASOPHILS % (AUTO) 1 % (0-10); EOSINOPHILS # (AUTO) 0.5 10^3/uL (0.0-0.3); EOSINOPHILS % (AUTO) 3 % (0-10); HEMATOCRIT 35 % (35-52); HEMOGLOBIN 11.3 g/dL (11.5-16.0); LYMPHOCYTES # (AUTO) 2.5 X 10^3 (1.0-4.0); LYMPHOCYTES % (AUTO) 18 % (12-44); MEAN CORPUSCULAR HEMOGLOBIN 28 pg (25-34); MEAN CORPUSCULAR HGB CONC 33 g/dL (32-36); MEAN CORPUSCULAR VOLUME 85 fL (80-99); MEAN PLATELET VOLUME 9.8 fL (9.0-12.2); MONOCYTES # (AUTO) 0.9 X 10^3 (0.0-1.0); MONOCYTES % (AUTO) 6 % (0-12); NEUTROPHILS # (AUTO) 10.2 X 10^3 (1.8-7.8); NEUTROPHILS % (AUTO) 72 % (42-75); PLATELET COUNT 350 10^3/uL (130-400); WHITE BLOOD COUNT 14.2 10^3/uL (4.3-11.0)
[2021-12-07 15:37] LABS: ALBUMIN 3.8 GM/DL (3.2-4.5)
[2021-12-07 15:38] LABS: CALCIUM 9.9 MG/DL (8.5-10.1)
[2021-12-07 15:39] LABS: INR 0.9 (0.8-1.4); PROTHROMBIN TIME PATIENT 12.8 SEC (12.2-14.7); TOTAL PROTEIN 7.4 GM/DL (6.4-8.2)
[2021-12-07 15:41] LABS: BILIRUBIN,TOTAL 0.5 MG/DL (0.1-1.0)
[2021-12-07 15:43] LABS: CREATININE SERUM 1.51 MG/DL (0.60-1.30)
[2021-12-07 15:46] LABS: MAGNESIUM 1.3 MG/DL (1.6-2.4)
[2021-12-07] MEDS ORDERED: NS IV 500 ML 500 ML IV ONE (16:00)
[2021-12-07] MEDS ORDERED: MAGNESIUM 1 GM/100 ML IVPB 100 ML IV ONE (16:00)
[2021-12-07 16:06] LABS: ACANTHOCYTES SLIGHT; EOSINOPHILS % (MANUAL) 6 %; LYMPHOCYTES % (MANUAL) 20 %; MONOCYTES % (MANUAL) 5 %; NEUTROPHILS % (MANUAL) 69 %
--- NOTE | 2021-12-07 16:48 | Diagnostic Imaging Report ---
EXAM: CHEST 1 VIEW, AP/PA ONLY INDICATION: Chest pain. COMPARISON: Chest radiograph from 10/07/2021. FINDINGS: Cardiomegaly. Implantable loop recorder. No focal pulmonary opacity. No pleural effusion or pneumothorax. No acute osseous findings. IMPRESSION: No acute cardiopulmonary findings. Stable cardiomegaly. Dictated by: Dictated on workstation # [id number]
[2021-12-07] MEDS ORDERED: MAGNESIUM OXIDE (MAG-OX)400 MG TAB PO STA (17:35)
--- NOTE | 2021-12-07 17:46 | ED Cardiac General ---
History of Present Illness General Chief Complaint: Cardiac/General Problems Stated Complaint: CP Nursing Triage Note: pt to room by wheelchair. pt states she was feeling short of breath, had a racing heart, and had chest pain at home. pt states she took her heartrate at home and it was reading in the 180s. pt states she is seeing Dr. Tran and has been wearing a halter monitor and Dr. Tran sent her here. pt also states several weeks ago her heartrate was in the 260s, but she coughed in the ambulance and she got herself back into [facility]. Source: patient Exam Limitations: no limitations History of Present Illness Date Seen by Provider: Dec 07, 2021 Time Seen by Provider: 15:10 Initial Comments This 86-year-old woman presents to the emergency room with abrupt onset of tachycardia. She has a narrow complex tachycardia on the monitor at a rate of about 160 bpm. She had 1 prior episode of tachycardia for which she was transpo rted to the emergency room by ambulance. It resolved in the ambulance before arriving to the ER when she coughed. She denies any chest pain at present but is short of breath. Valsalva during assessment did not resolve the tachycardia. Allergies and Home Medications Allergies Coded Allergies: codeine (Unverified Allergy, Mild, RASH, 09/23/08) Patient Home Medication List Home Medication List Reviewed: Yes ALPRAZolam (Xanax Tablet) 0.25 Mg Tab, 0.25 MG PO Q8H PRN for ANXIETY Prescribed by: MIGEL SANCHEZ on 01/10/212118 Allopurinol (Allopurinol) 100 Mg Tablet, 100 MG PO DAILY Prescribed by: MIGEL SANCHEZ on 01/10/212117 Amlodipine Besylate (Amlodipine Besylate) 5 Mg Tablet, 5 MG PO BID Prescribed by: MIGEL SANCHEZ on 01/10/212117 Aspirin (Aspirin EC) 81 Mg Tablet.dr, 81 MG PO DAILY Prescribed by: MIGEL SANCHEZ on 01/10/212117 Atenolol (Atenolol) 50 Mg Tablet, 50 MG PO BID Prescribed by: MIGEL SANCHEZ on 01/10/212117 Atorvastatin Calcium (Atorvastatin Calcium) 40 Mg Tablet, 40 MG PO HS Prescribed by: MIGEL SANCHEZ on 01/10/212117 Candesartan/Hydrochlorothiazid (Candesartan-Hctz 32-12.5 mg Tb) 1 Each Tablet, 1 EA PO DAILY Prescribed by: MIGEL SANCHEZ on 01/10/212117 Cetirizine HCl (Cetirizine HCl) 10 Mg Tablet, 10 MG PO DAILY Prescribed by: MIGEL SANCHEZ on 01/10/212117 Clopidogrel Bisulfate (Clopidogrel) 75 Mg Tablet, 75 MG PO DAILY Prescribed by: MIGEL SANCHEZ on 01/10/212117 Fluorometholone Acetate (Flarex) 5 Ml Drops.susp, 1 DROP OU DAILY, (Reported) Entered as Reported by: RENETTA GUERRERO on 01/05/21 1020 Magnesium Oxide (Magnesium Oxide) 400 Mg Magnesium Tablet, 400 MG PO DAILY Prescribed by: ERIN MAHAJAN on 12/07/21 1747 Melatonin (Melatonin) 5 Mg Tablet, 5-10 MG PO HS PRN for SLEEP, (Reported) Entered as Reported by: RENETTA GUERRERO on 01/05/21 1020 Montelukast Sodium (Montelukast Sodium) 10 Mg Tablet, 10 MG PO HS Prescribed by: MIGEL SANCHEZ on 01/10/212117 Potassium Chloride (Klor-Con 10) 10 Meq Tablet.er, 10 MEQ PO DAILY@0700 Prescribed by: MIGEL SANCHEZ on 01/10/212117 Tramadol HCl/Acetaminophen (Tramadol-Acetaminophn 37.5-325) 1 Each Tablet, 1-2 EA PO Q6H PRN for PAIN-MODERATE (5-7) Prescribed by: MIGEL SANCHEZ on 01/10/212118 Review of Systems Review of Systems Constitutional: no symptoms reported EENTM: No Symptoms Reported Respiratory: See HPI Cardiovascular: See HPI Gastrointestinal: No Symptoms Reported Genitourinary: No Symptoms Reported Musculoskeletal: no symptoms reported Skin: no symptoms reported Psychiatric/Neurological: No Symptoms Reported Endocrine: No Symptoms Reported Past Ifdfxwj-Gdwgdl-Mhvixj Hx Patient Social History Smoking Status: Former Smoker Smokeless Tobacco Frequency: Current Everyday User Use of E-Cig and/or Vaping dev: No Substance use?: No Alcohol Use?: No Immunizations Up To Date Influenza Vaccine Up-to-Date: Yes; Up-to-Date First/Initial COVID19 Vaccinat: Jul 2020 Second COVID19 Vaccination Brannon: August 2020 Third COVID19 Vaccination Date: Jul 2020 Past Medical History Surgeries: Yes Eye Surgery, Hysterectomy, Orthopedic Respiratory: No Currently Using CPAP: No Cardiac: Yes (SVT?) Palpitations Neurological: Yes (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 oz. kg; 22.00 BMI Method: General Appearance: WD/WN, Mild Distress, Thin HEENT: PERRL/EOMI, Normal ENT Inspection, Pharynx Normal Neck: Normal Inspection; No JVD Respiratory: Lungs Clear, Normal Breath Sounds, No Accessory Muscle Use Cardiovascular: No Edema, No Murmur, Tachycardia Gastrointestinal: Non Tender, Soft Extremity: Normal Inspection, No Pedal Edema Neurologic/Psychiatric: Alert, Oriented x3, No Motor/Sensory Deficits, plow mechanic II- XII Norm as Tested, Other (Anxious) Skin: Normal Color, Warm/Dry Procedures/Interventions Date of ETT Placement: Dec 27, 2020 Time of ETT Placement: 2101 Progress/Results/Core Measures Results/Orders Lab Results Laboratory Tests Test 12/07/21 15:03 Range/Units White Blood Count 14.2 H 4.3-11.0 10^3/uL Red Blood Count 4.11 3.80-5.11 10^6/uL Hemoglobin 11.3 L 11.5-16.0 g/dL Hematocrit 35 35-52 % Mean Corpuscular Volume 85 80-99 fL Mean Corpuscular Hemoglobin 28 25-34 pg Mean Corpuscular Hemoglobin Concent 33 32-36 g/dL Red Cell Distribution Width 14.8 H 10.0-14.5 % Platelet Count 350 130-400 10^3/uL Mean Platelet Volume 9.8 9.0-12.2 fL Immature Granulocyte % (Auto) 0 % Neutrophils (%) (Auto) 72 42-75 % Lymphocytes (%) (Auto) 18 12-44 % Monocytes (%) (Auto) 6 0-12 % Eosinophils (%) (Auto) 3 0-10 % Basophils (%) (Auto) 1 0-10 % Neutrophils # (Auto) 10.2 H 1.8-7.8 X 10^3 Lymphocytes # (Auto) 2.5 1.0-4.0 X 10^3 Monocytes # (Auto) 0.9 0.0-1.0 X 10^3 Eosinophils # (Auto) 0.5 H 0.0-0.3 10^3/uL Basophils # (Auto) 0.1 0.0-0.1 10^3/uL Immature Granulocyte # (Auto) 0.0 0.0-0.1 10^3/uL Neutrophils % (Manual) 69 % Lymphocytes % (Manual) 20 % Monocytes % (Manual) 5 % Eosinophils % (Manual) 6 % Acanthocytes SLIGHT Prothrombin Time 12.8 12.2-14.7 SEC INR Comment 0.9 0.8-1.4 Activated Partial Thromboplast Time 31 24-35 SEC Sodium Level 135 135-145 MMOL/L Potassium Level 4.0 3.6-5.0 MMOL/L Chloride Level 99 98-107 MMOL/L Carbon Dioxide Level 23 21-32 MMOL/L Anion Gap 13 5-14 MMOL/L Blood Urea Nitrogen 28 H 7-18 MG/DL Creatinine 1.51 H 0.60-1.30 MG/DL Estimat Glomerular Filtration Rate 34 BUN/Creatinine Ratio 19 Glucose Level 181 H 70-105 MG/DL Calcium Level 9.9 8.5-10.1 MG/DL Corrected Calcium 10.1 8.5-10.1 MG/DL Magnesium Level 1.3 L 1.6-2.4 MG/DL Total Bilirubin 0.5 0.1-1.0 MG/DL Aspartate Amino Transf (AST/SGOT) 35 H 5-34 U/L Alanine Aminotransferase (ALT/SGPT) 36 0-55 U/L Alkaline Phosphatase 112 40-136 U/L Myoglobin 113.0 H 10.0-92.0 NG/ML Troponin I < 0.028 <0.028 NG/ML Total Protein 7.4 6.4-8.2 GM/DL Albumin 3.8 3.2-4.5 GM/DL My Orders Cecile - ERIN ARAUJO MD Cbc With Automated Diff (12/07/21 15:09) Magnesium (12/07/21 15:09) Chest 1 View, Ap/Pa Only (12/07/21 15:09) Ekg Tracing (12/07/21 15:09) Comprehensive Metabolic Panel (12/07/21 15:09) Myoglobin Serum (12/07/21 15:09) Protime With Inr (12/07/21 15:09) Partial Thromboplastin Time (12/07/21 15:09) O2 (12/07/21 15:09) Monitor-Rhythm Ecg Trace Only (12/07/21 15:09) Ed Iv/Invasive Line Start (12/07/21 15:09) Troponin I Jose (12/07/21 15:09) Adenosine Injection (Adenocard Injection (12/07/21 15:15) Adenosine Injection (Adenocard Injection (12/07/21 15:15) Ekg Tracing (12/07/21 15:20) Manual Differential (12/07/21 15:03) Ns Iv 500 Ml (Sodium Chloride 0.9%) (12/07/21 16:00) Magnesium 1 Gm/100 Ml Ivpb (Magnesium Martin (12/07/21 16:00) Ekg Tracing (12/07/21 17:33) Magnesium Oxide Tablet (Mag Ox Tablet) (12/07/21 17:35) Medications Given in ED Current Medications Medications Dose Ordered Sig/Jacky Route Start Time Stop Time Status Last Admin Dose Admin Adenosine 6 mg ONCE ONCE IV 12/07/21 15:15 12/07/21 15:16 DC 12/07/21 15:19 6 MG Magnesium Sulfate/ Dextrose 100 ml @ 100 mls/hr ONCE ONCE IV 12/07/21 16:00 12/07/21 16:59 DC 12/07/21 16:08 100 MLS/HR Sodium Chloride 500 ml @ 0 mls/hr Q0M ONCE IV 12/07/21 16:00 12/07/21 16:03 DC 12/07/21 16:09 0 MLS/HR Vital Signs/I&O 12/07/21 12/07/21 15:05 18:07 Temp 36.6 Pulse 170 62 Resp 24 14 B/P (MAP) 110/91 (97) 132/60 Pulse Ox 95 96 Blood Pressure Mean: 97 Progress Progress Note : Progress Note SVT converted to sinus rhythm with adenosine 6 mg IV push. Symptoms completely resolved and patient felt well. Work-up revealed hypomagnesemia which was replaced IV and orally. See discharge instructions for further discussion. EKG #1: EKG Time: 15:14 Rate: 163 Rhythm: SVT ECG Impression: SVT Comment SVT with ST depression. EKG #2: EKG Time: 15:15 Rate: 123 Comment This EKG demonstrates the conversion of SVT to normal sinus rhythm after adenosine 6 mg IV bolus. EKG #3: EKG Time: 15:25 Rate: 87 Rhythm: Normal Sinus Intervals: Normal ECG Impression: Normal Comment Normal sinus rhythm with no ST elevation or depression. Nonspecific ST changes. No abnormal intervals or axis deviation. This is resolution of SVT after administration of adenosine. Diagnostic Imaging Diagonstic Imaging: Xray Plain Films/CT/US/NM/MRI: chest Comments NAME: JOYCELYN CLAYTON [facility] REC#: [id number] PT STATUS: REG ER : 1935 PHYSICIAN: ERIN ARAUJO MD ADMIT DATE: 12/07/21/ER Signed Date of Exam:12/07/21 CHEST 1 VIEW, AP/PA ONLY EXAM: CHEST 1 VIEW, AP/PA ONLY INDICATION: Chest pain. COMPARISON: Chest radiograph from 10/07/2021. FINDINGS: Cardiomegaly. Implantable loop recorder. No focal pulmonary opacity. No pleural effusion or pneumothorax. No acute osseous findings. IMPRESSION: No acute cardiopulmonary findings. Stable cardiomegaly. Dictated by: Dictated on workstation # [id number] Dict: 12/07/21 1641 Trans: 12/07/21 1646 [id number] [id number] Interpreted by: CHILO CLARK MD Electronically signed by: CHILO CLARK MD 12/07/216 Departure Impression Primary Impression: SVT (supraventricular tachycardia) Additional Impression: Hypomagnesemia Disposition: 01 HOME, SELF-CARE Condition: Improved Departure-Patient Inst. Decision time for Depature: 17:42 Referrals: LOW IBRAHIM DO (PCP/Family) Primary Care Physician Patient Instructions: Supraventricular Tachycardia (SVT), Low Magnesium Level Add. Discharge Instructions: Drink plenty of clear liquids. Avoid drinking excessive caffeine. Follow-up with Dr. Tran as soon as possible. Please call his office on Friday and ask if your appointment time can be moved up. If you have any further episodes of SVT, you may try bearing down with the Valsalva maneuver. If that does not work after a couple of attempts, you may try placing an ice bag on your face. These maneuvers will sometimes cause a reflex in the cardiovascular system that stops SVT. If these maneuvers are not effective, return to the emergency room. Take your magnesium as prescribed. Take it twice a day for 5 days for rep lacement, and then once a day for maintenance after that. Call with questions or concerns. Return to ER if you have worsening symptoms. All discharge instructions reviewed with patient and/or family. Voiced understanding. Scripts Magnesium Oxide (Magnesium Oxide) 400 Mg Magnesium Tablet 400 MG PO DAILY, #30 TAB Take twice daily for 5 days for replacement, and then once daily for maintenance Prov: ERIN ARAUJO MD 12/07/21 Copy Copies To 1: GRETEL TRAN MD Copies To 2: LOW IBRAHIM JOSHUA T MD Dec 07, 2021 17:46
[2021-12-07] MEDS ORDERED: MAGN400T50 PO (17:47)
[2021-12-07 18:07] VITALS: BP 132/60
== END 2021-12-07 18:11 | disposition home or self-care (01) ==
LOC: EDUNIT# 15:03 → ER 15:04
DX: I47.1 Supraventricular tachycardia (principal); E83.42 Hypomagnesemia; F17.220 Nicotine dependence, chewing tobacco, uncomplicated
CPT/HCPCS: 36415; 71045; 80053; 83735; 83874; 84484; 85007; 85027; 85610; 85730; 93005; 93041

== ENCOUNTER 2022-03-18 16:54 | Emergency (ER) | payer MEDICARE, OTHER ==
[~2022-03-18] VITALS: Ht 157 cm; Wt 55.0 kg
[~2022-03-18 16:54] MED LIST changes: +MAGN400T50 PO
[2022-03-18] MEDS ORDERED: NS IV 1000 ML 1,000 ML ONE (17:01)
--- NOTE | 2022-03-18 17:04 | ED Cardiac General ---
History of Present Illness General Chief Complaint: Cardiac/General Problems Stated Complaint: TACHYCARDIA Source: patient, EMS Exam Limitations: no limitations History of Present Illness Date Seen by Provider: Mar 18, 2022 Time Seen by Provider: 16:58 Initial Comments Patient is an 86-year-old who presents to the emergency department today with a chief complaint of palpitations and shortness of breath. She states she started getting short of breath at home earlier, checked her pulse oximeter and noticed that her heart rate was 160. She states she was very weak and she did vomit prior to EMS arrival. She denies chest pain but has a significant amount of heaviness and pressure. Discomfort does not radiate. She states she has had a history of palpitations in the past. She is on Plavix and aspirin as a result of a stroke approximately a year ago. No recent fevers, chills or productive cough. No urinary complaints or diarrhea. No swelling in her legs or cramping in her calves. Her food and beverage attendant is Dr. Tran. She does have an implantable loop recorder in place. On arrival her heart rate is in the 150s, blood pressure is 78 systolic to 99 systolic. Patient was immediately placed on cardiac monitors, pulse oximetry, 2 IVs established. She was attached to the ZOLL monitor. IV fluid bolus hanging. I discussed her EKG with Dr. Kenney who is on-call for cardiology. He felt like her EKG did not represent STEMI but more likely demand ischemia from rate related complications. At this point I opted for adenosine as her pressure was approximately 100 systolic. 6 mg of IV adenosine pushed and she had pretty rapid resolution of her tachycardia to a normal sinus at 75 beats a minute with resolution of ischemic changes. All other review of systems reviewed and negative except as stated Allergies and Home Medications Allergies Coded Allergies: codeine (Unverified Allergy, Mild, RASH, 09/23/08) Patient Home Medication List Home Medication List Reviewed: Yes ALPRAZolam (Xanax Tablet) 0.25 Mg Tab, 0.25 MG PO Q8H PRN for ANXIETY Prescribed by: MIGEL SANCHEZ on 01/10/212118 Allopurinol (Allopurinol) 100 Mg Tablet, 100 MG PO DAILY Prescribed by: MIGEL SANCHEZ on 01/10/212117 Amlodipine Besylate (Amlodipine Besylate) 5 Mg Tablet, 5 MG PO BID Prescribed by: MIGEL SANCHEZ on 01/10/212117 Aspirin (Aspirin EC) 81 Mg Tablet.dr, 81 MG PO DAILY Prescribed by: MIGEL SANCHEZ on 01/10/212117 Atenolol (Atenolol) 50 Mg Tablet, 50 MG PO BID Prescribed by: MIGEL SANCHEZ on 01/10/212117 Atorvastatin Calcium (Atorvastatin Calcium) 40 Mg Tablet, 40 MG PO HS Prescribed by: MIGEL SANCHEZ on 01/10/212117 Candesartan/Hydrochlorothiazid (Candesartan-Hctz 32-12.5 mg Tb) 1 Each Tablet, 1 EA PO DAILY Prescribed by: MIGEL SANCHEZ on 01/10/212117 Cetirizine HCl (Cetirizine HCl) 10 Mg Tablet, 10 MG PO DAILY Prescribed by: MIGEL SANCHEZ on 01/10/212117 Clopidogrel Bisulfate (Clopidogrel) 75 Mg Tablet, 75 MG PO DAILY Prescribed by: MIGEL SANCHEZ on 01/10/212117 Fluorometholone Acetate (Flarex) 5 Ml Drops.susp, 1 DROP OU DAILY, (Reported) Entered as Reported by: RENETTA GUERRERO on 01/05/21 1020 Magnesium Oxide (Magnesium Oxide) 400 Mg Magnesium Tablet, 400 MG PO DAILY Prescribed by: ERIN MAHAJAN on 12/07/21 1747 Melatonin (Melatonin) 5 Mg Tablet, 5-10 MG PO HS PRN for SLEEP, (Reported) Entered as Reported by: RENETTA GUERRERO on 01/05/21 1020 Montelukast Sodium (Montelukast Sodium) 10 Mg Tablet, 10 MG PO HS Prescribed by: MIGEL SANCHEZ on 01/10/212117 Potassium Chloride (Klor-Con 10) 10 Meq Tablet.er, 10 MEQ PO DAILY@0700 Prescribed by: MIGEL SANCHEZ on 01/10/212117 Tramadol HCl/Acetaminophen (Tramadol-Acetaminophn 37.5-325) 1 Each Tablet, 1-2 EA PO Q6H PRN for PAIN-MODERATE (5-7) Prescribed by: MIGEL SANCHEZ on 01/10/212118 Review of Systems Review of Systems Constitutional: see HPI EENTM: No Symptoms Reported Respiratory: Shortness of Air Cardiovascular: Chest Pain, Palpitations Gastrointestinal: No Symptoms Reported Genitourinary: No Symptoms Reported Musculoskeletal: no symptoms reported Skin: no symptoms reported Psychiatric/Neurological: No Symptoms Reported All Other Systems Reviewed Negative Unless Noted: Yes Past Kujioft-Jadscc-Imnvux Hx Immunizations Up To Date First/Initial COVID19 Vaccinat: Jul 2020 Second COVID19 Vaccination Brannon: August 2020 Third COVID19 Vaccination Date: Jul 2020 Past Medical History Surgeries: Yes Eye Surgery, Hysterectomy, Orthopedic Respiratory: No Currently Using CPAP: No Cardiac: Yes (SVT?) Palpitations Neurological: Yes (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 oz. kg; 22.00 BMI Method: General Appearance: WD/WN, Anxious, Mild Distress HEENT: PERRL/EOMI Neck: Normal Inspection Respiratory: Lungs Clear, Normal Breath Sounds, No Accessory Muscle Use, No Respiratory Distress Cardiovascular: Tachycardia (160s) Gastrointestinal: Non Tender, Soft Extremity: Normal Capillary Refill, Normal Inspection, Normal Range of Motion Neurologic/Psychiatric: Alert, Oriented x3, No Motor/Sensory Deficits, Normal Mood/Affect Skin: Normal Color, Warm/Dry Procedures/Interventions Date of ETT Placement: Dec 27, 2020 Time of ETT Placement: 2101 Progress/Results/Core Measures Results/Orders Lab Results Laboratory Tests Test 03/18/22 17:00 03/18/22 17:07 Range/Units White Blood Count 10.8 4.3-11.0 10^3/uL Red Blood Count 3.81 3.80-5.11 10^6/uL Hemoglobin 10.3 L 11.5-16.0 g/dL Hematocrit 32 L 35-52 % Mean Corpuscular Volume 84 80-99 fL Mean Corpuscular Hemoglobin 27 25-34 pg Mean Corpuscular Hemoglobin Concent 32 32-36 g/dL Red Cell Distribution Width 16.0 H 10.0-14.5 % Platelet Count 246 130-400 10^3/uL Mean Platelet Volume 10.6 9.0-12.2 fL Immature Granulocyte % (Auto) 1 % Neutrophils (%) (Auto) 73 42-75 % Lymphocytes (%) (Auto) 14 12-44 % Monocytes (%) (Auto) 8 0-12 % Eosinophils (%) (Auto) 4 0-10 % Basophils (%) (Auto) 1 0-10 % Neutrophils # (Auto) 7.9 H 1.8-7.8 10^3/uL Lymphocytes # (Auto) 1.5 1.0-4.0 10^3/uL Monocytes # (Auto) 0.9 0.0-1.0 10^3/uL Eosinophils # (Auto) 0.4 H 0.0-0.3 10^3/uL Basophils # (Auto) 0.1 0.0-0.1 10^3/uL Immature Granulocyte # (Auto) 0.1 0.0-0.1 10^3/uL Prothrombin Time 12.7 12.2-14.7 SEC INR Comment 0.9 0.8-1.4 Activated Partial Thromboplast Time 30 24-35 SEC Sodium Level 134 L 135-145 MMOL/L Potassium Level 5.6 H 3.6-5.0 MMOL/L Chloride Level 103 98-107 MMOL/L Carbon Dioxide Level 21 21-32 MMOL/L Anion Gap 10 5-14 MMOL/L Blood Urea Nitrogen 33 H 7-18 MG/DL Creatinine 1.74 H 0.60-1.30 MG/DL Estimat Glomerular Filtration Rate 29 BUN/Creatinine Ratio 19 Glucose Level 137 H 70-105 MG/DL Calcium Level 9.7 8.5-10.1 MG/DL Corrected Calcium 10.2 H 8.5-10.1 MG/DL Magnesium Level 1.6 1.6-2.4 MG/DL Total Bilirubin 0.3 0.1-1.0 MG/DL Aspartate Amino Transf (AST/SGOT) 63 H 5-34 U/L Alanine Aminotransferase (ALT/SGPT) 44 0-55 U/L Alkaline Phosphatase 106 40-136 U/L Myoglobin 92.7 H 10.0-92.0 NG/ML Troponin I < 0.028 <0.028 NG/ML Total Protein 7.3 6.4-8.2 GM/DL Albumin 3.4 3.2-4.5 GM/DL Glucometer 142 H 70-110 MG/DL My Orders Orders - BOB KENDRICK MD Ekg Tracing (03/18/22 16:56) Ns Iv 1000 Ml (Sodium Chloride 0.9%) (03/18/22 17:01) Cbc With Automated Diff (03/18/22 17:04) Magnesium (03/18/22 17:04) Chest 1 View, Ap/Pa Only (03/18/22 17:04) Ekg Tracing (03/18/22 17:04) Comprehensive Metabolic Panel (03/18/22:) Myoglobin Serum (03/18/22:04) Protime With Inr (03/18/22:04) Partial Thromboplastin Time (03/18/22 17:04) O2 (03/18/22 17:04) Monitor-Rhythm Ecg Trace Only (03/18/22 17:04) Ed Iv/Invasive Line Start (03/18/22 17:04) Troponin I [place] (03/18/22 17:04) Adenosine Injection (Adenocard Injection (03/18/22 17:15) Ns Iv 1000 Ml (Sodium Chloride 0.9%) (03/18/22 17:15) Adenosine Injection (Adenocard Injection (03/18/22 17:05) Ekg Tracing (03/18/22 17:21) Ekg Tracing (03/18/22 17:17) Medications Given in ED Vital Signs/I&O 03/18/22 03/18/22 03/18/22 16:59 17:13 18:47 Temp 36.7 Pulse 156 61 Resp 22 17 B/P (MAP) 87/69 (75) 140/64 Pulse Ox 98 100 97 O2 Delivery Room Air Nasal Cannula Room Air O2 Flow Rate 2.00 03/19/22 00:00 Intake Total 1000 ml Balance 1000 ml Progress Progress Note : Time: 18:11 Progress Note Labs reviewed and are reassuring, chest x-ray is without any major abnormalities. Patient is maintained in a normal sinus rhythm. Blood pressure is 130s systolic. She is alert and oriented and feels 100% better. It is recommended she follow-up with Dr. Langley as well as Dr. Tran. Initial ECG Impression Date: Mar 18, 2022 Initial ECG Impression Time: 17:06 Initial ECG Rate: 153 Initial ECG Rhythm: SVT Comment Tachycardia, 150s. [address] segment elevation in leads V1 and V2 as well as aVR; ST segment depression in V3, V4, V5 and V6 EKG #1: EKG Time: 17:15 Rate: 132 Rhythm: ECG Comparisson: Changed Comment Significant pause noted at the administration of adenosine irregular tachycardia with continued ST elevation in V1 and V2 slight depression still in the other precordial leads V4 5 and 6 EKG #2: EKG Time: 17:18 Rate: 75 Rhythm: Normal Sinus Intervals NE interval 156 QRS [address] QTC [address] segments, normal sinus rhythm stool lightly prominent T waves across the precordium Diagnostic Imaging Diagonstic Imaging: Xray Plain Films/CT/US/NM/MRI: chest Comments [facility] [place] NAME: JOYCELYN CLAYTON [facility] REC#: [id number] PT STATUS: REG ER : 1935 PHYSICIAN: BOB KENDRICK MD ADMIT DATE: 03/18/22/ER Signed Date of Exam:03/18/22 CHEST 1 VIEW, AP/PA ONLY EXAMINATION: Chest 1 view HISTORY: Chest pain. COMPARISON: 12/07/2021. FINDINGS: The lung volumes are normal. Patchy opacities are seen in the right lung base. No focal consolidation is seen. No large pleural effusion or pneumothorax is seen. Stable cardiomegaly with loop recorder overlying the cardiac silhouette. There is calcified aortic atherosclerotic plaque. No acute osseous abnormality is seen. IMPRESSION: 1. Cardiomegaly. No overt pulmonary edema. 2. Patchy opacities in the right lung base, which may represent atelectasis or infection. Dictated by: Dictated on workstation # [id number] Dict: 03/18/221724 Trans: 03/18/221731 [id number] [id number] Interpreted by: SHERMAN RIVERA DO Electronically signed by: SHERMAN RIVERA DO 03/18/221731 Critical Care Note Critical Care Start Time: 16:58 Stop Time: 17:45 Total Time (minutes) 30 minutes critical care time in the evaluation and management of this 86-year-old with A. fib, RVR and hypotension. Time includes initial evaluation and management with IV fluid resuscitation, review and interpretation of EKG, medical decision making between electrical cardioversion and chemical car dioversion. Discussion with cardiology services. Time also includes that involved in the review of medical records, discussion with family. Departure Impression Primary Impression: SVT (supraventricular tachycardia) Disposition: 01 HOME, SELF-CARE Condition: Improved Departure-Patient Inst. Decision time for Depature: 18:12 Referrals: GRETEL TRAN MD, JACQUELINE S DO (PCP/Family) Primary Care Physician Patient Instructions: Paroxysmal Supraventricular Tachycardia (DC) Add. Discharge Instructions: Continue your daily medications as prescribed except for Potassium - DO NOT take the potassium supplement for the next 3 days - as your potassium was a little high today in the ER. Drink plenty of fluids to stay well hydrated. Call Dr Tran's office tomorrow to let him know you were in the ER again for abnormal rhythms again. Please come back to the Emergency Department for any new, concerning or emergent complaints. Copy Copies To 1: LOW LANGLEY DO Copies To 2: GRETEL TRAN MD, KATHRYN M MD Mar 18, 2022 17:04
[2022-03-18] MEDS ORDERED: ADENOSINE 6 MG/2 ML (ADENOCARD) VIAL IV ONE ×2 (17:05→17:15)
[2022-03-18 17:09] LABS: BASOPHILS # (AUTO) 0.1 10^3/uL (0.0-0.1); BASOPHILS % (AUTO) 1 % (0-10); EOSINOPHILS # (AUTO) 0.4 10^3/uL (0.0-0.3); EOSINOPHILS % (AUTO) 4 % (0-10); HEMATOCRIT 32 % (35-52); HEMOGLOBIN 10.3 g/dL (11.5-16.0); LYMPHOCYTES # (AUTO) 1.5 10^3/uL (1.0-4.0); LYMPHOCYTES % (AUTO) 14 % (12-44); MEAN CORPUSCULAR HEMOGLOBIN 27 pg (25-34); MEAN CORPUSCULAR HGB CONC 32 g/dL (32-36); MEAN CORPUSCULAR VOLUME 84 fL (80-99); MEAN PLATELET VOLUME 10.6 fL (9.0-12.2); MONOCYTES # (AUTO) 0.9 10^3/uL (0.0-1.0); MONOCYTES % (AUTO) 8 % (0-12); NEUTROPHILS # (AUTO) 7.9 10^3/uL (1.8-7.8); NEUTROPHILS % (AUTO) 73 % (42-75); PLATELET COUNT 246 10^3/uL (130-400); WHITE BLOOD COUNT 10.8 10^3/uL (4.3-11.0)
[2022-03-18] MEDS ORDERED: NS IV 1000 ML 1,000 ML IV SCH (17:15)
[2022-03-18 17:25] LABS: ALBUMIN 3.4 GM/DL (3.2-4.5)
[2022-03-18 17:26] LABS: INR 0.9 (0.8-1.4); POTASSIUM 5.6 MMOL/L (3.6-5.0); PROTHROMBIN TIME PATIENT 12.7 SEC (12.2-14.7)
[2022-03-18 17:27] LABS: CALCIUM 9.7 MG/DL (8.5-10.1)
[2022-03-18 17:28] LABS: TOTAL PROTEIN 7.3 GM/DL (6.4-8.2)
[2022-03-18 17:30] LABS: BILIRUBIN,TOTAL 0.3 MG/DL (0.1-1.0)
--- NOTE | 2022-03-18 17:30 | Diagnostic Imaging Report ---
EXAMINATION: Chest 1 view HISTORY: Chest pain. COMPARISON: 12/07/2021. FINDINGS: The lung volumes are normal. Patchy opacities are seen in the right lung base. No focal consolidation is seen. No large pleural effusion or pneumothorax is seen. Stable cardiomegaly with loop recorder overlying the cardiac silhouette. There is calcified aortic atherosclerotic plaque. No acute osseous abnormality is seen. IMPRESSION: 1. Cardiomegaly. No overt pulmonary edema. 2. Patchy opacities in the right lung base, which may represent atelectasis or infection. Dictated by: Dictated on workstation # [id number]
[2022-03-18 17:31] LABS: CREATININE SERUM 1.74 MG/DL (0.60-1.30)
[2022-03-18 17:34] LABS: MAGNESIUM 1.6 MG/DL (1.6-2.4)
[2022-03-18 18:47] VITALS: BP 140/64
== END 2022-03-18 18:47 | disposition home or self-care (01) ==
LOC: EDUNIT# 16:54 → ER 16:55
DX: I47.1 Supraventricular tachycardia (principal); Z86.73 Personal history of transient ischemic attack (TIA), and cerebral infarction without residual deficits; Z79.82 Long term (current) use of aspirin; Z79.02 Long term (current) use of antithrombotics/antiplatelets
CPT/HCPCS: 36415; 71045; 80053; 82947; 83735; 83874; 84484; 85025; 85610; 85730; 93005; 93041

== ENCOUNTER 2022-07-01 09:30 | Outpatient (CLI) | payer MEDICARE, OTHER ==
[2022-07-01] VITALS (18 sets, daily range): BP systolic 135–194; BP diastolic 48–84
[~2022-07-01] VITALS: Ht 157.5 cm; Wt 55.4 kg
[2022-07-01 07:40] LABS: HEMATOCRIT 35 % (35-52); HEMOGLOBIN 11.3 g/dL (11.5-16.0); MEAN CORPUSCULAR HEMOGLOBIN 28 pg (25-34); MEAN CORPUSCULAR HGB CONC 32 g/dL (32-36); MEAN CORPUSCULAR VOLUME 86 fL (80-99); MEAN PLATELET VOLUME 9.4 fL (9.0-12.2); PLATELET COUNT 322 10^3/uL (130-400); WHITE BLOOD COUNT 12.5 10^3/uL (4.3-11.0)
[2022-07-01 08:05] LABS: ALBUMIN 3.7 GM/DL (3.2-4.5); BILIRUBIN,TOTAL 0.6 MG/DL (0.1-1.0); CALCIUM 9.9 MG/DL (8.5-10.1); CREATININE SERUM 1.49 MG/DL (0.60-1.30); POTASSIUM 3.7 MMOL/L (3.6-5.0)
--- NOTE | 2022-07-01 09:11 | Pre-Op Note & Conscious Sedat ---
Pre-Operative Progress Note Date of Available H&P: May 27, 2022 Date H&P Reviewed: Jul 01, 2022 Time H&P Reviewed: 09:10 History & Physical: Changes noted below Changes from last HP Patient is not currently on Toprol. She states she is felt as though her SVT was going to initiate but does not. She said no recurrent events since her last office visit. She denies any symptoms of chest discomfort. She has baseline SOA related to her COPD On exam she has bilateral femoral bruits. She has decreased breath sounds in the bilateral bases but her lungs appear clear. She has a 2/6 systolic murmur with a clear S2. Pre-Op Diagnosis: SVT Conscious Sedation Pre-Proced Time 09:43 ASA Score 2 For ASA 3 and 4: Consider anesthesia and medical clearance. Also, for patients with a history of failed moderate sedation consider anesthesia. Airway Lungs Heart ASA score ASA 1: a normal healthy patient ASA 2: a patient with a mild systemic disease (mid diabetes, controlled hypertension, obesity ASA 3: a patient with a severe systemic disease that limits activity (angina, COPD, prior Myocardial infarction) ASA 4: a patient with an incapacitating disease that is a constant threat to life (CHF, renal failure) ASA 5: a moribund patient not expected to survive 24 hrs. (ruptured aneurysm) ASA 6: a declared brain- patient whose organs are being harvested. For emergent operations, add the letter E after the classification Mallampati Classification Grade 3 Sedation Plan Analgesia (fentanyl), Amnesia (versed), Discussed options with patient/fam (y), Discussed risks with patient/fam (with son, daughter and [id number]) The patient is an appropriate candidate to undergo the planned procedure, sed ation, and anesthesia. The patient immediately re-assessed prior to indication. OMERO PACK MD Jul 01, 2022 09:11
[~2022-07-01 09:30] MED LIST changes: +AMLO-251 PO; +ASCO-262 PO; +CALC-250 PO; +CETI10TA49 PO; +HEParin (CATH LAB) 0 ML IV ONE; +HYDR-700 PO; +ISOPROTERENOL ONE; +LIDOCAINE 1% INJ 20 ML VIAL ONE; +MAGN400T39 PO; +MIDAZOLAM 5 MG/5 ML (VERSED) VIAL ONE; +MTP100TCR PO; +NS (IVPB) 100 ML ONE; +NS IV 1000 ML 1,000 ML ONE; +POTA-177 PO; +VITA-189 PO; +fentaNYL INJ 100 MCG/2 ML AMP ONE
--- NOTE | 2022-07-01 09:48 | Pre-Procedure Progress Note ---
Pre-Procedure Progress Note Date of Available H&P: May 27, 2022 Date H&P Reviewed: Jul 01, 2022 Time H&P Reviewed: 09:48 Changes from last HP Noted on the preop consultation assessment and plan Pre-Procedure Diagnosis: SVT Below is from office visit note 05/27/2022. Please see conscious sedation preop assessment and plan for updated H&P. I had the pleasure of seeing your patient Melody Cordero as a part of the [facility] at [facility] in [place] today for initial Electrophysiolgy Consultation regarding her SVT ad cryptogenic stroke. She is typically followed and was referred by my colleague Dr. Tran, her primary algebraist. Ms. Cordero is an exceptionally pleasant 86 y.o. female, who is accompanied by her equally pleasantsonJack. I have extensively reviewed outside records from Dr. Tran's office. All data in this note, including the past medical history, was newly collected today. 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 Tran); Moderate Aortic St enosis; Medtronic Reveal LinQ Implantable Looping Monitor Deivce (Implantation Dr. Tran 10/10/2021); Essential Hypertension; Moderate Right Renal Artery Stenosis (Renal Duplex 10/2021); hyperlipidemia; Carotid Artery Disease; Arthritis; Former Tobacco Abuse; Macular Degeneration To Review Detailed Updated PMHx see below the ASSESSMENT AND PLAN section of this note. Her HPI for today is discussed in greater detail as a part of the Assessment and Plan below. FHx, SHx and ROS documented and I have reviewed. Most pertinent ROS is included/discussed throughout the note, e.g. HPI and A/P. Medtronic Reveal LinQ Implantable Looping Monitor Full Device Check performed with reprogramming which I have extensively reviewed. Changes, if done, as discussed below and is detailed in other dictation/note. Since the device is implanted there have been 6 tachycardia events, 4 pauses greater than 5 seconds, and one reported episode of A. fib. Review of the tachycardia events in particular in December documents a regular narrow complex tachycardia With a tachycardia cycle length at times in the 340 ms range at other times in the 400 ms range there is no clear obvious P wave visible although at times there is a questionable retrograde P wave in the terminal portion of the QRS. Often do not have the onset but do have some episodes with sudden termination. In addition seem to occur with PVCs. All of the pauses are in fact under sensing not true pauses. Sewed of Lorraine draper is either an atrial tachycardia with 2:1 conduction or a possible atrial flutter although I think that is less likely. Baseline has a significant amount of artifact and therefore definitive interpretation is difficult. 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 Tran) -- Moderate Aortic Stenosis -- Medtronic Reveal LinQ Implantable Looping Monitor Deivce (Implantation Dr. Tran 10/10/2021) -- Essential Hypertension -- Hyperlipidemia -- Normal LV Function (Echo 10/[address] Tran) -- Carotid Artery Disease -- Arthritis -- Former Tobacco Abuse -- Macular Degeneration Ms. Cordero has had documented recurrent SVT at times reportedly with termination with adenosine. Os recent episode was in March. I reviewed the ECG tracing. The ECG tracing documents a narrow complex tachycardia at approximately 440 MS with no obvious discernible P waves. It terminates abruptly with adenosine. There are some tracings from her ILR that show termination with PVCs. Her Medtronic Reveal LinQ Monitor Device as documented, since the device is implanted, 6 tachycardia events, 4 pauses greater than 5 seconds-although I do not see any of those documented, and one reported episode of Lorraine thomasin not documented for my review at least.Os's are all under sensing. The AFIB while the rhythm is irregular it appears as though there is visible P waves. It does not appear to be atrial fibrillation. I anticipate it is either an atrial tachycardia or sinus tach with some irregularity. Upon Review of the tachycardia events in particular in December, these are regular narrow complex tachycardia With a tachycardia cycle length at times in the 340 ms range at other times in the 400 ms range there is no clear obvious P wave visible although at times there is a questionable retrograde P wave in the terminal portion of the QRS. Often do not have the onset but do have some episodes with sudden termination. 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 Although I cannot definitively rule out an Atrial Tachycardia. We had a lengthy discussion regarding SVT, the pathophysiology of SVT, the different types of SVT, the mechanisms, and therapeutic options. She has no evidence of preexcitation and therefore I reassured her that she does not have WPW and therefore her SVT is not life-threatening. We also discussed the therapeutic options for SVT to include: AV adry suppressing agents--althoughhenna is currently on Metoprolol 100 mg dailystill had a recurrence in March, membrane stabilizing antiarrhythmic drug therapy,or pursuing EPS RFA. Unfortunately she is continue to have episodes despite Toprol-XL 100 mg daily. Re: RFA, We discussed if this is a Left Sided Pathway or Atrial Tachycardia that a Transeptal Puncture may be required. We discussed the procedure itself along with its associated risks, rationale, options, and benefits in detail with Melody Cordero andher son. We discussed the risks to include, but not be limited to: , [place], stroke, cardiac perforation, complete heart block which could result in the need for a permanent pacemaker, bleeding, swelling, hematoma, infection, DVT, or vascular injury. She, the patient expressed an understanding of the procedure and risks, and wishes to proceed. Infectious eager to have it done. She was instructed to hold any AVN suppressing or Antiarrhythmic drug Tx for 72 hours prior to the procedure.This she will need to stop her metoprolol 72 hours before the procedure. She will continue to be monitored for her history of cryptogenic stroke for any AFIB. For her cryptogenic stroke she remains on aspirin and Plavix. She has accelerated hypertension today. States her blood pressure numbers been going up. She states Dr. Tran's office has had her on a as needed medication for her hypertension. All of her current medications for hypertension are maxed out. Therefore I touch base with Dr. Chelsea Curran's PA and they will follow- up with her today or tomorrow to further optimize/control of her BP. Moderate aortic stenosis. On exam she has a clear S2. She does not appear to have significant symptoms related to her Aortic Stenosis at this time. See additional plan details below. PLAN: --Plan for SVT RFA --Hold beta-jackson as described above prior to the procedure --Procedure to be done here at [facility] in [place] --Dr. Chelsea's office to follow-up regarding her blood pressure management Total Time Today [id number] in the following activities: Preparing to see the patient, Obtaining and/or reviewing separately obtained history, Performing a medically appropriate examination and/or evaluation, Counseling and educating the patient/family/caregiver, Ordering medications, tests, or procedures, Referring and communication with other health home health care respiratory therapist (when not separately reported) and Documenting clinical information in the electronic or other health record Ms. Cordero was educated regarding plan of care. She was instructed to call our office with any questions or concerns, as well as to notify us of any new or worsening symptoms. She verbalized understanding. I appreciate the opportunity to participate in the care of your patient. Please do not hesitate to contact me directly if you have any questions or further insights into her care. DETAILED UPDATED PMHx: -- 12/2020: Cryptogenic stroke with right-sided weakness, receiving physical therapy, full resolution, occurred in December 2020. Maintained on aspirin, and Plavix. Continue to monitor -- 10/05/2021: SVT, episode of tachycardia with a heart rate around 200 broke out with sinus rhythm on its own occurred on October 05, 2021, associated with shortness of breath. -- 10/2021: Renal Artery Duplex: Showing focal velocity elevation within the proximal mid portion of the right main renal artery indicates probable moderate stenosis of the right main renal artery. Discussed limiting salt in her diet. -- 10/2021: Carotid Duplex: Most recent carotid duplex done October 2021 showing bilateral moderate ICA stenosis. -- 10/2021: Echocardiogram: Showing severe aymmetric hypertrophy of the septum. EF 60-65%. Grade 1 diastolic dysfunction. Moderately dilated left atrium. Moderate with peak gradient 40mmHg, mean gradient 21mmHg, valve area 1.3cm. PA 40-45mmHg. -- 12/07/2021: Had another episode of SVT on December 07, 2021 was evaluated in ER, given adenosine -- 03/19/2022: Had an episode of SVT occurred on March 19, 2022, resolved with adenosine. -- 03/21/2022: OV (Dr. Tran): Patient is concerned about the frequency of her recurring SVT. Discussed referral to EP for possible ablation.Discussed that patient is considered at intermediate risk of perioperative cardiovascular complications. Risk vs benefit of surgery will be deferred to the surgeon. May hold ASA and Plavix 5-7 days prior to procedure. arial 4d arial 4d arial 4Bl Vitals: 05/27/22 1315 05/27/22 1316 BP: (!) 187/71 Pulse: 63 Resp: 18 PainSc: Zero Weight: 54.4 kg (120 lb) 54.4 kg (120 lb) arial 4d There is no height or weight on file to calculate BMI.arial 4d Past Medical History arial 4Bl Patient Active Problem List Diagnosis Date Noted SVT (supraventricular tachycardia) (HCC) 05/22/2022 Per OV note on 03/21/[address] Joy Tran ([facility] - Cardiology) 10/10/2021 - ECHO: ([facility]) LV cavity size is nromal. THere is severe asymmetric hypertrophy of the septum. LV systolic function is normal. EF is 60-65%. There were no regional wall abnormalities idenitifed. Doppler parameters are consistent with abnormal LV relaxation (grade 1 diastolic dysfunction). LA is moderately dilated. There is moderate AV stenosis. Peak AV gradient 40mmHg, mean gradient 21mmHg, valve area 1.3cm2. Trivial AVR. PASP is in the range of 40-45mmHg. Cryptogenic stroke (HCC) 05/22/2022 Per OV note on 03/21/[address] Joy Tran ([facility] - Cardiology) HTN (hypertension) 05/22/2022 Per OV note on 03/21/[address] Joy Tran ([facility] Card[facility]) 11/02/2021 - Renal Artery Doppler: ([facility]) Focal velocity elevation within the proximal mid portion of the right main renal artery indicates probable moderate stenosis of the right main renal artery. There is also a dominant simple cyst in the right kidney and possible mild right hydronephrosis, although this could be related to renal cyst as well. Left kidney is somewhat smaller in size but otherwise unremarkable in appearance. HLD (hyperlipidemia) 05/22/2022 Per OV note on 03/21/[address] Joy Tran ([facility] - [facility]) Carotid artery stenosis 05/22/2022 Per OV note on 03/21/[address] Joy Tran ([facility]) 10/08/2021 - Carotid Artery Duplex: ([facility]) Right - 40-59% internal carotid artery stenosis. Antegrade vertebral flow. Left - 40-59% internal carotid artery stenosis. Antegrade vertebral flow. Arthritis 05/22/2022 Per OV note on 03/21/[address] Joy Tran ([facility]) Macular degeneration 05/22/2022 Per OV note on 03/21/[address] Joy Tran ([facility] Card[facility]) Status post placement of implantable loop recorder 05/22/2022 10/10/2021 - Successful implantation of loop monitor ([facility]) OMERO PACK MD Jul 01, 2022 09:48
--- NOTE | 2022-07-01 09:57 | Electrophysiology Procedure ---
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 Bundle of HIS recording. Moderate Sedation Anesthesia Right heart catheterization Three-dimensional intracardiac electroanatomic mapping ("CARTO") Acute drug testing/IV Drug-Isuprel Administration Ultrasound Use/Guidance for femoral venous access BRIEF SUMMARY: It is unclear with the patient held her beta-jackson prior to the procedure. She might of held at the morning of but it is unclear whether she has held it for the 72 hours recommended prior to the procedure. This may be why we could not induce any SVT. The patient had evidence of clear Dual AV adry Physiology with single and double AV adry echo beats induced and on 1 occasion nonsustained AVNRT induced. Post ablation there was clear evidence of AV node modification with only single retrograde conducting AV adry echo beats and clear modification of the slow pathway present and no nonsustained AVNRT. Thus She Had Successful AV Node Modification/RF Ablation for AVNRT. Catheters were placed in the bilateral femoral veins with ultrasound guidance. An SRO sheath was placed in the right femoral vein and used for mapping and ablation. A 6 [place] sheath was used in the right femoral vein for the coronary sinus catheter. 3 x 6 [place] sheaths were placed in the left femoral vein and utilized for the hiss catheter and RV apical catheter. The last sheath was intended to be used for the HRA catheter but there was an issue with the catheter and connecting cables and therefore it was not used. At baseline we were able to demonstrate evidence of dual AV adry physiology with a shift of the slow pathway during incremental atrial pacing and a jump to the supply failure with single and even 2 AV adry echo beats. With Isuprel we were able to see some brief nonsustained AVNRT with a cycle length of 400 ms and a VA time of 0 ms. However even despite Isuprel and aggressive programmed stimulation we were unable to induce any AVNRT that was sustained. The nonsustained was even difficult to be reproducibly induced at baseline. However with documented SVT in no evidence of an accessory pathway and no other arrhythmias induced to proceed with AV node modification. We started off low well below the CS. We ablated in that area and in the area of the slow pathway region. On a few occasions we had accelerated junctional beats but we still had evidence of significant slow pathway function. Therefore additional RF was applied. Since we had a bad endpoint i.e. no sustained inducible SVT we continue to pursue slow pathway ablation. We ablated around the CS os, just superior but anterior to the CS os and even in the roof of the CS os. And more so. Her location we had a longer episode of axillary junctional beats. After extensive ablation of the slow pathway region we still had evidence of dual AV adry physiology and a single retrograde conducting only echo beat but clear evidence of AV node modification. Also no nonsustained AVNRT could be reproduced despite Isuprel administration. At this point the AH interval prior to AV node ERP was exceptionally prolonged e jae before the echo beat and therefore the likelihood that the AV node is not modified adequately to prevent recurrent SVT is low. Pursuing more aggressive ablation I felt put the compact AV node at increased risk and this could have resulted in the need for permanent pacemaker. Therefore I did not feel that increased risk warranted the potential benefit since I felt we had evidence of clear AV node modification at this point. Patient tolerated the procedure well. Sheaths were pulled at the end of the pro cedure and she was transferred to a telemetry bed. Given her age and her respiratory status i.e. COPD, will monitor overnight and anticipate discharge home tomorrow. If she needs the beta-jackson for BP control then I would resume the beta-jackson otherwise I would discontinue the beta-jackson and see how she does. Patient has an ILR. We will continue to monitor through her ILR for any recurrent SVT. TECHNICAL ASST: Christiano Pack M.D. INDICATION FOR PROCEDURE: Recurrent SVT, despite medical therapy with a beta- jackson CONSENT: The risks, benefits, indications and alternatives to the procedure were explained in detail with the patient and discussed at length prior to the procedure. The patient expressed understanding of the risks and consented to the procedure. All questions asked were answered and all permits were signed. The patient was transported to the Electrophysiology Laboratory in a non-sedated state and was placed supine on the fluoroscopy table. SEDATION: The patient underwent moderate sedation using Versed and Fentanyl administered by a trained Registered Nurse whom I supervised. Continuous blood pressure, heart rate and O2 saturation monitoring with supplemental oxygen as needed was utilized throughout the procedure. OTHER MEDICATIONS: Isuprel at a maximum of 2 mcg/min was used with programmed stimulation. SETUP AND ACCESS: The patient was brought to the EP Lab in a fasting state after informed and written consent was obtained. Cardiac rhythm, blood pressure, heart rate, respirations, oxygen saturation and level of consciousness were monitored prior to, throughout and after the procedure. Moderate sedation was administered by trained staff members. The patient was placed supine on the fluoroscopy table, prepped and draped in the usual sterile fashion. Local anesthetic was provided. Vascular Ultrasound was utilized to confirm femoral venous location and patency. Micro-punture Needle access was obtained under ultrasound guidance and a permanent recording obtained. Venous access was obtained using a micropunctur needle in the right and left femoral veins under fluoroscopic/anatomic and vascular ultrasound guidance using the modified Seldinger technique with placement of sheaths and catheters as described below. CATHETERS USED: For descriptions of the catheter positioning and placement see the brief summary above. A frentingter 6 Emir[place] deflectable decapolar catheter was used for the CS. The CS catheter continue to fall back despite a distal position with cardiac c ontractility. However this occurred over time during the procedure. Quadripolar deflectable 7 [place] 4 mm tip RF ablation catheter was utilized to the SRO for mapping and RF ablation. A decapolar deflectable CS catheter 6 [place] was placed into the coronary sinus Quadripolar fixed curve 6 [place] catheter was advanced in the RV apex. DETAILS OF PROCEDURE: Electrophysiology Study & Programmed Stimulation: Following insertion of catheters as above, baseline measurements were obtained and programmed stimulation was performed as described below. Programmed extra stimulation was performed with evidence of dual AV adry physiology and SVT was UNABLE to BE INDUCED. Isuprel was started at 2 mcg/min. After Isuprel effect was noted, EP study was performed. We then performed ablation in the area of the slow pathway as described below. Following ablation, a repeat EP study was performed. We then started Isuprel at 2mcg/min. After Isuprel effect was noted, an EP sudy was again performed. EP STUDY (Baseline and Post Ablation) and MAPPING and ABLATION: Baseline intervals were obtained as per below. A baseline EP study was performed, including pacing/recording from the HRA or CS. This revealed {Blank single:50958:: "no A-H jump of greater than 50 ms with decrementing atrial extrastimuli by 10 ms and normal infrahisian conduction", "dual-AV adry physiology and normal infrahisian conduction"}. The Dual AVN physiology was demonstrated as described below. Retrograde conduction was concentric and decremental SVT could not be induced as described in the brief summary above. We did see some brief nonsustained SVT but it was not reproducibly inducible. We did see clear evidence of dual AV adry physiology with single echo beats that. The echo beats were reproducibly inducible. We advanced the [employer] quadripolar 4 mm tip mapping/ablation catheter to the right atrium, and the His and AV node were mapped extensively using the intracrdiac 3-D mapping system and the HIS region was identified and displayed on the Carto 3D mapping system. The catheter was then placed at the slow pathway region where a small fractionated A was seen Applications of RF energy were delivered in the posterior-septal area of the slow pathway region. Ablation was performed with a maximum power of 50Watts and 60 Degrees. Ablation induced junctional beats/an accelerated junctional rhythm. We ablated the area of slow pathway potentials. We ablated around the coronary sinus. We ablated above the coronary sinus. There is no evidence of AV node modification but since we had a poor starting point with no inducible SVT we got slightly more aggressive going above the CS closure to the compact AV node. However since I felt that with additional RF application additional accelerated junctional beats we had modified the pathway adequately I did not get more aggressive to try and eliminate it completely as I felt there was an increased risk at that point of injuring the compact AV node which could potentially requ corby a permanent pacemaker. Post Ablation, We then repeated EP study. We were not able to induce tachycardia-similar to ablation. Only single RG conducting only Echos beats were induced post RFA both with and without Isuprel. In fact AV node echo beats occurred followed immediately by antegrade AV node ERP. Final measurements were taken. DIAGNOSTIC EP STUDY: Baseline: Initial rhythm sinus bradycardia cycling 84 MS. Normal 120 MS QRS duration 95 MS QT interval 408 MS AH interval 84 MS HV interval 55 MS. There was no baseline bundle branch block Baseline antegrade Wenckebach block occurred at 410 MS with a shift to the slow pathway at 430 MS On Isopril antegrade Wenckebach occurred at 340 MS with a shift in the slow pathway 360 MS. Retrograde AV node Wenckebach at baseline occurred at 400 MS and on Isuprel 2 mcg/min at 330 MS. Baseline AV node ERP occurred at 600/less than 290 MS with atrial ERP occurring at 280 MS A jump to the slow pathway occurred at 600/390 MS AV adry echo beats occurred at 600/290 MS With double atrial extrastimuli--AV adry echo beats occurred at 600/360/340 MS with double echo beats at 600/400/220 MS. ON ISOPRIL A jump to the slow pathway occurred at 600/310 MS Nonsustained AVNRT occurred at 600/300 MS for approximately 4-5 beats. With double atrial extrastimuli on Isuprel at 600/360/260 MS AV adry echo beats reproducibly occurred. Retrograde AV node ERP at baseline was 600/360 MS and on Isuprel was 600/320 MS. There was clearly no evidence of an accessory pathway at baseline with concentric and decremental antegrade and retrograde AV adry conduction. Post-Ablation/Final: Coming off Isuprel patient's rhythm was sinus at 840 MS with a NV interval of 122 MS QRS duration of 97 MS and QT of 386 MS And AH interval of 65 MS in the HV interval of 54 MS. Antegrade AV node Wenckebach occurred at 400 MS right after a shift of the slow pathway occurred. This demonstrated CLEAR AV NODE MODIFICATION On Isopril and AV node Wenckebach antegrade occurred at 350 MS Retrograde Baseline AV node Wenckebach occurred at 370 M Atrial extrastimuli post ablation demonstrated AV node ERP at 600/320 MS with a "jump" at 600/380 MS in a single echo at 600/340 MS On Isuprel 2 mcg/min post ablation AV node ERP was 600/290 MS and with double atrial extrastimuli was 600/360/290 MS which is above where nonsustained AVNRT occurred as well as jumps and echo beats. Post ablation retrograde AV node ERP was 600/340 MS. SVT: Nonsustained AV node reentrant tachycardia was induced on 1 occasion on Isuprel at 2 mcg/min with single atrial extrastimuli at 600/300 MS and spontaneously terminated. The second was 400 ms. The VA time was 0 MS. No other nonsustained AVNRT could be induced. Completion of Study: The catheters were then removed and the patient was transported to the outpatient holding area with plans for removal of the sheaths with manual pressure held until adequate hemostasis was noted. The patient tolerated the procedure well. No adverse events were noted at the end of the study. IMPRESSION: 1. Nonsustained, What appeared to be Typical AVNRT could be induced but not reproducibly but there was evidence of baseline at 11 neurophysiology with single and double AV adry echo beats. 2. Successful AVN Modification/ Slow Pathway Ablation. 3. At the completion of the procedure, remnant slow pathway was present with a jump and single retrograde only conducting echo beats with clear AV node modification was noted with no inducible nonsustained AVNRT or double AV adry echo beats. Despite administration of Isuprel up to 2 mcg/min. Despite isuprel administration"}. PLAN: - We will monitor the patient overnight in the hospital with plans for discharge in the morning. - Sheaths to be removed in recovery - Discontinue: Metoprolol unless she needs it for blood pressure control - Outpatient follow up in [address] Tran or his MATILDA. -Patient has an ILR we will continue to monitor through ILR for any recurrent SVT. CHRISTIANO PACK MD Jul 01, 2022 09:57
[2022-07-01] MEDS ORDERED: LIDOCAINE 1% INJ 20 ML VIAL ONE (10:28)
[2022-07-01] MEDS ORDERED: fentaNYL INJ 100 MCG/2 ML AMP ONE ×3 (11:51→14:52)
[2022-07-01] MEDS ORDERED: MIDAZOLAM 5 MG/5 ML (VERSED) VIAL ONE (11:51)
[2022-07-01] MEDS ORDERED: PATIENT MAY USE OWN MEDS, ALL PO SCH (14:00)
[2022-07-01] MEDS: NS IV 1000 ML 1,000 ML IV SCH (14:08)
[2022-07-01] MEDS ORDERED: fentaNYL INJ 100 MCG/2 ML AMP IVP PRN (15:00)
[2022-07-01] MEDS ORDERED: MELATONIN PO PRN (15:15)
[2022-07-01] MEDS ORDERED: NON-FORMULARY MEDICATION 1 EA EA (Hydroxyzine HCl 25 MG) PO PRN (15:15)
[2022-07-01] MEDS ORDERED: MELATONIN 10 MG TABLET PO PRN (15:30)
[2022-07-01] MEDS ORDERED: hydrOXYzine (VISTARIL/ATARAX) 25 MG capsule/tablet PO PRN ×2 (15:30→16:15)
[2022-07-01] MEDS: meTOprolol SUCCINATE 100 MG (TOPROL XL) TAB PO SCH (15:35)
[2022-07-01] MEDS: amLODIPine 10 MG (NORVASC) TAB PO SCH (15:36)
[2022-07-01] MEDS: [UNRECOGNIZED DRUG - REMARK] PO SCH (15:37)
[2022-07-01] MEDS ORDERED: MELATONIN 5 MG TABLET PO PRN (16:00)
[2022-07-01] MEDS ORDERED: NON-FORMULARY MEDICATION 1 EA EA (Magnesium Oxide (Magnesium) 400 MG) PO SCH (21:00)
[2022-07-01] MEDS ORDERED: MONTELUKAST 10 MG (SINGULAIR) TAB PO SCH (21:00)
[2022-07-01] MEDS ORDERED: MAGNESIUM OXIDE (MAG-OX)400 MG TAB PO SCH (21:00)
[2022-07-01] MEDS ORDERED: doxAzosin 2 MG (CARDURA) TAB PO ONE (21:15)
[2022-07-01] MEDS ORDERED: doxAzosin 2 MG (CARDURA) TAB PO PRN (21:15)
[2022-07-02] VITALS: BP 141/48
[2022-07-02] MEDS: NS IV 1000 ML 1,000 ML IV SCH (00:02)
[2022-07-02 04:00] VITALS: BP 148/58
[2022-07-02] MEDS ORDERED: MULTIVIT W/MINERALS TAB (THERAGRAN M) PO SCH (07:00)
[2022-07-02] MEDS ORDERED: SUPER B COMPLEX PO SCH (07:00)
[2022-07-02] MEDS ORDERED: KCL 10 MEQ TAB (MICRO K) PO SCH (07:00)
[2022-07-02] MEDS ORDERED: ASCORBIC ACID (VIT C) 500 MG TABLET PO SCH (07:00)
[2022-07-02 07:34] VITALS: BP 155/67
[2022-07-02 08:00] VITALS: BP 156/59
--- NOTE | 2022-07-02 08:27 | Cardiology Progress Note ---
Subjective Date Seen by Provider: Jul 02, 2022 Time Seen by Provider: 08:25 Subjective/Events-last exam Patient was seen at bedside, has slight oozing on the left groin last night overall there is no hematoma. Review of Systems General: No Chills, No Night Sweats, No Fatigue, No Malaise, No Appetite, No Other HEENT: No Head Aches, No Visual Changes, No Eye Pain, No Ear Pain, No Dysphasia, No Sinus Congestion, No Post Nasal Drip, No Sore Throat, No Other Pulmonary: No Dyspnea, No Cough, No Pleuritic Chest Pain, No Other Cardiovascular: No: Chest Pain, Palpitations, Orthopnea, Paroxysmal Noc. Dyspnea, Edema, Lt Headedness, Other Objective-Cardiology Exam Last Set of Vital Signs Vital Signs 07/02/22 07/02/22 05:30 08:00 Temp 37.0 Pulse 67 Resp 13 B/P (MAP) 156/59 (91) Pulse Ox 97 O2 Delivery Room Air O2 Flow Rate 2.00 I&O Intake and Output 07/02/22 00:00 Intake Total 210 ml Balance 210 ml Intake Oral 210 ml # Voids 4 General: Alert, Oriented X3, Cooperative HEENT: Atraumatic, PERRLA Neck: Supple, No JVD, No Thyromegaly Lungs: Clear to Auscultation, Normal Air Movement Heart: Regular Rate, Normal S1, Normal S2, No Murmurs Abdomen: Normal Bowel Sounds, Soft, No Tenderness, No Hepatosplenomegaly, No Masses Extremities: No Clubbing, No Cyanosis, No Edema, Normal Pulses, No Tenderness/Swelling Skin: No Rashes, No Breakdown, No Significant Lesion Neuro: Normal Gait, Normal Speech, Strength at 5/5 X4 Ext, Normal Tone, Sensation Intact Psych/Mental Status: Mental Status NL, Mood NL A/P-Cardiology Admission Diagnosis AVNRT Cryptogenic stroke Hypertension Hyperlipidemia Assessment/Plan SVT, AVNRT Status post ablation to the slow pathway by Dr. Skinner on July 01, 2022. Recovered well and doing well. History of cryptogenic stroke, maintained on aspirin and Plavix Hypertension, restart home medication monitor blood pressure Hyperlipidemia, monitor lipids Carotid stenosis, continue to monitor Macular degeneration Arthritis I am covering for Dr. Skinner, planning for discharge today GRETEL FUENTES MD Jul 02, 2022 08:27
--- NOTE | 2022-07-02 08:28 | Discharge Inst-Post CATH ---
Discharge Inst-CATH/EP Problems Reviewed?: Yes Post Cardiac Cath/EP D/C Inst Follow Up/Plan Appointment with Dr. Tran's office in 1 week <b>CARDIAC CATH/EP PROCEDURE DISCHARGE INSTRUCTIONS</b> ACTIVITY * Go Home directly and rest. * Limit activity of the leg (or wrist if it was used) for 7 days including aerobics, swimming, jogging, bicycling, etc. * Restrict stair-climbing for 7 days if possible, if not, climb up with your non-cath leg, then bring together on the same step. * Avoid lifting, pushing, pulling or excessive movement of the affected extremity for 7 days. * Customary sexual activity may be resumed after 2 days-use caution not to use a position that strains or causes pain to the affected extremity. * No driving for 24 hours. * NO SMOKING. * Avoid straining for bowel movements for 7 days. * Gentle walking on level ground is allowed. * Returning to work will depend on the type of procedure and the results. Your doctor will discuss this with you. CALL YOUR DOCTOR FOR ANY OF THE FOLLOWING: *If bleeding from the puncture site occurs- Apply gentle pressure to site with clean cloth and call your doctor or EMS. * If a knot or lump forms under the skin, increases in size, or causes pain. * If bruising appears to be worsening or moving further down your leg instead of disappearing. * Temperature above 101 F. CARE OF YOUR GROIN INCISION; * Bruising or purple discoloration of the skin near the puncture site is common. * You may shower only, no bathtub bathing for 5 days. Be careful to avoid slipping as your leg may feel stiff. * If a closure device was used on your femoral artery, please see the attached guide regarding care of the device and your leg. * Leave dressing on FOR 24 hours. CARE OF YOUR WRIST INCISION; * Bruising or purple discoloration of the skin near the puncture site is common. * You may shower. * DO NOT submerge wrist. * Leave dressing on FOR 24 hours. GRETEL TRAN MD Jul 02, 2022 08:28
[2022-07-02] MEDS: meTOprolol SUCCINATE 100 MG (TOPROL XL) TAB PO SCH (08:30)
[2022-07-02] MEDS: [UNRECOGNIZED DRUG - REMARK] PO SCH (08:31)
[2022-07-02] MEDS: amLODIPine 10 MG (NORVASC) TAB PO SCH (08:31)
[2022-07-02] MEDS ORDERED: ASPIRIN E.C. 81 MG (ECOTRIN) TAB PO SCH (09:00)
[2022-07-02] MEDS ORDERED: ZYRTEC 10 MG PO SCH (09:00)
[2022-07-02] MEDS ORDERED: CLOPIDOGREL 75 MG (PLAVIX) TABLET PO SCH (09:00)
[2022-07-02] MEDS ORDERED: NON-FORMULARY MEDICATION 1 EA EA (Cetirizine HCl (Zyrtec) 10 MG) PO SCH (09:00)
[2022-07-02] MEDS ORDERED: NON-FORMULARY MEDICATION 1 EA EA (Potassium Chloride 10 MEQ) PO SCH (09:00)
[2022-07-02] MEDS ORDERED: NON-FORMULARY MEDICATION 1 EA EA (Vitamin B Complex (B Complex) 1 EACH) PO SCH (09:00)
[2022-07-02] MEDS ORDERED: VITAMIN D3 125 MCG (5,000 UNITS) CAPSULE PO SCH (09:00)
[2022-07-02] MEDS ORDERED: NON-FORMULARY MEDICATION 1 EA EA (Ascorbate Calcium (Vitamin C) 500 MG) PO SCH (09:00)
[2022-07-02] MEDS ORDERED: LORATADINE (CLARITIN) 10 MG TAB PO SCH (09:00)
[2022-07-02] MEDS ORDERED: ALLOPURINOL 100 MG (ZYLOPRIM) TAB PO SCH (09:00)
== END 2022-07-02 09:29 | disposition home or self-care (01) ==
LOC: CARD 09:30 → CSD 13:42 → CARD 07-02 09:29
PROVIDERS: ATTEND Internal Medicine Cardiovascular Disease
DX: I47.1 Supraventricular tachycardia (principal)
CPT/HCPCS: 80053; 85027; 87081; 93653; C1894 ×2; 36415

== ENCOUNTER → 2022-07-26 | Outpatient (CLI) | payer MEDICARE, OTHER ==
[~2022-07-26] MED LIST changes: -HEParin (CATH LAB) 0 ML IV ONE; -ISOPROTERENOL ONE; -LIDOCAINE 1% INJ 20 ML VIAL ONE; -MIDAZOLAM 5 MG/5 ML (VERSED) VIAL ONE; -NS (IVPB) 100 ML ONE; -NS IV 1000 ML 1,000 ML ONE; -fentaNYL INJ 100 MCG/2 ML AMP ONE
== END ==
LOC: CARD 08:54
PROVIDERS: ATTEND Internal Medicine Cardiovascular Disease
DX: I08.0 Rheumatic disorders of both mitral and aortic valves (principal); I11.9 Hypertensive heart disease without heart failure; I25.10 Atherosclerotic heart disease of native coronary artery without angina pectoris
CPT/HCPCS: 93306